=== PATIENT | male | born 1965 | race Caucasian/White ===

== ENCOUNTER → 2016-03-31 | Outpatient (CLI) | payer MEDICARE, OTHER ==
[2016-03-31 09:38] LABS: Blood Urea Nitrogen 21 mg/dL (9-20); Non-African American GFR(MDRD) >60 (>60 ml/min/1.73 sqM)
--- NOTE | 2016-03-31 11:06 | CT ---
EXAMINATION TYPE: CT chest abdomen w con DATE OF EXAM: 03/31/2016 10:25 AM REFERENCE: NONE HISTORY: R10.9 R flank pain HISTORY: Right flank pain REFERENCE: NONE CT DLP: 2955.70 mGy Automated exposure control for dose reduction was used. TECHNIQUE: Helical acquisition through the abdomen and pelvis was obtained following the oral ingesti on of with Oral Contrast and following intravenous administration of 100 ml mL of Omnipaque 300. The data was reformatted in axial, coronal and sagittal projections. FINDINGS: The lungs are clear. There is no significant axillary, mediastinal or hilar adenopathy. There is no pleural or pericardial fluid. The heart is normal in size. Within the abdomen, the liver is prominent measuring 20 cm. There is mild fatty infiltration of the l iver. The spleen and gallbladder are normal. Both adrenal glands are normal. The pancreas is unremarkable. Both kidneys demonstrate function and appear morphologically normal. There is no significant retroperitoneal adenopathy. Large and small bowel loops appear normal. Limited views of the appendix appear normal. There is spondylosis deformans and hypertrophic spondylosis in the dorsal spine. 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 There is facet arthropathy in the lumbar spine. No bony d estructive lesion is seen. IMPRESSION: 1. HEPATOMEGALY AND FATTY INFILTRATION OF THE LIVER. 2. NORMAL CT SCAN OF THE CHEST. 3. NO EVIDENCE OF NEPHROLITHIASIS OR HYDRONEPHROSIS. 4. 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
== END | disposition home or self-care (01) ==
LOC: RADCTMAIN 08:57
PROVIDERS: ATTEND Family Medicine
DX: R16.0 Hepatomegaly, not elsewhere classified (principal)
CPT/HCPCS: 82565; 84520; 71260; 74160; 36415; Q9967 ×2

== ENCOUNTER → 2016-04-24 | Outpatient (CLI) | payer MEDICARE, OTHER ==
[2016-04-24 09:56] LABS: Hemoglobin A1C 7.8 % (4.2-6.1)
[2016-04-24 10:11] LABS: ALT 28 U/L (21-72); AST 24 U/L (17-59); Alkaline Phosphatase 82 U/L (38-126); Anion Gap 9 mmol/L; Blood Urea Nitrogen 17 mg/dL (9-20); Carbon Dioxide 27 mmol/L (22-30); Chloride 102 mmol/L (98-107); Cholesterol 172 mg/dL (<200); Glucose 138 mg/dL (74-99); HDL Cholesterol 53 mg/dL (40-60); Non-African American GFR(MDRD) >60 (>60 ml/min/1.73 sqM); Potassium 4.2 mmol/L (3.5-5.1); Sodium 138 mmol/L (137-145); Total Bilirubin 0.6 mg/dL (0.2-1.3); Total Protein 6.7 g/dL (6.3-8.2); Triglycerides 174 mg/dL (<150)
== END ==
LOC: LABWHC1 08:38
PROVIDERS: ATTEND Internal Medicine Endocrinology, Diabetes & Metabolism
DX: E11.65 Type 2 diabetes mellitus with hyperglycemia (principal)
CPT/HCPCS: 36415; 80053; 80061; 82043; 83036

== ENCOUNTER → 2016-08-02 | Outpatient (CLI) | payer MEDICARE, OTHER ==
--- NOTE | 2016-08-02 08:30 | XR ---
EXAMINATION TYPE: XR Hip Complete RT DATE OF EXAM: 08/02/2016 CLINICAL HISTORY: Injury, pain TECHNIQUE: AP and frogleg views of the right hip are obtained. COMPARISON: None. FINDINGS: There is no acute fracture/dislocation evident in the right hip. The joint space in the r ight hip appears within normal limits. The overlying soft tissue appears unremarkable. IMPRESSION: There is no acute fracture or dislocation in the right hip.
== END | disposition home or self-care (01) ==
LOC: RADXRMAIN 07:57
PROVIDERS: ATTEND Physician Assistant
DX: M25.551 Pain in right hip (principal)
CPT/HCPCS: 73502

== ENCOUNTER → 2016-11-01 | Outpatient (CLI) | payer MEDICARE, OTHER ==
[2016-11-01 12:24] LABS: ALT 38 U/L (21-72); AST 15 U/L (17-59); Alkaline Phosphatase 89 U/L (38-126); Anion Gap 11 mmol/L; Blood Urea Nitrogen 13 mg/dL (9-20); Calcium 9.2 mg/dL (8.4-10.2); Carbon Dioxide 26 mmol/L (22-30); Chloride 103 mmol/L (98-107); Cholesterol 167 mg/dL (<200); Glucose 101 mg/dL (74-99); HDL Cholesterol 51 mg/dL (40-60); Non-African American GFR(MDRD) >60 (>60 ml/min/1.73 sqM); Potassium 4.3 mmol/L (3.5-5.1); Sodium 140 mmol/L (137-145); Total Bilirubin 0.4 mg/dL (0.2-1.3)
[2016-11-01 21:31] LABS: Urine Creatinine 88.3 mg/dL
== END | disposition home or self-care (01) ==
LOC: LABWHC1 11:11
PROVIDERS: ATTEND Internal Medicine Endocrinology, Diabetes & Metabolism
DX: E11.65 Type 2 diabetes mellitus with hyperglycemia (principal)
CPT/HCPCS: 36415; 80053; 80061; 82043; 82570

== ENCOUNTER → 2016-12-05 | Outpatient (CLI) | payer MEDICARE, OTHER ==
[2016-12-05 10:06] LABS: Bilirubin, Delta 0.1 mg/dL (0.0-0.2); Total Bilirubin 0.5 mg/dL (0.2-1.3)
== END | disposition home or self-care (01) ==
LOC: LABWHC1 09:30
DX: K76.0 Fatty (change of) liver, not elsewhere classified (principal)
CPT/HCPCS: 36415; 80076

== ENCOUNTER → 2017-05-16 | Outpatient (CLI) | payer MEDICARE, OTHER ==
--- NOTE | 2017-05-16 16:07 | MR ---
EXAMINATION TYPE: MR lumbar spine wo con DATE OF EXAM: 05/16/2017 COMPARISON: MRI lumbar spine June 17, 2015. HISTORY: LBP, radiates into rt buttock x 3 years; no trauma TECHNIQUE: Multiplanar, multisequence imaging of the lumbar spine is performed without IV contrast. FINDINGS: Sagittal images of the lumbar spine show vertebral body heights and alignment to appear sat isfactory. There is mild disc desiccation L3-L4 and L4-L5 levels with perhaps mild disc space narrowi ng L4-L5 level otherwise the intervertebral discs demonstrate normal heights and hydration. No large posterior disc herniations are present on sagittal images. The conus medullaris remains normal in po sition and signal ending at superior L1 level. No significant spurring is seen. The bone marrow sign al intensity is within normal limits. Axial images are suboptimal as there is motion artifact degradation present. Axial images at the T12- L1, L1-L2, and L2-L3 levels are felt within normal limits. Axial images at L3-L4 level redemonstrate mild facet degenerative changes and ligament flavum hypertr ophy but spinal canal is preserved and bilateral neural foramina are patent. Axial images at L4-L5 level show mild/moderate facet degenerative changes bilaterally. There is centr al disc protrusion seen mildly effacing anterior thecal sac. There is mild bilateral anterior inferio r neural foraminal narrowing noted. Axial images at L5-S1 level show asymmetric moderate to advanced right-sided facet arthropathy simila r to prior. There is some encroachment on right lateral recess redemonstrated. Bilateral neural myron leandro remain patent. Spinal canal is preserved. IMPRESSION: Multilevel fairly mild degenerative changes in lumbar spine redemonstrated as detailed ab ove. Overall no significant interval change from prior exam.
== END | disposition home or self-care (01) ==
LOC: RADMRIMAIN 14:57
PROVIDERS: ATTEND Psychiatry & Neurology Neurology
DX: M47.816 Spondylosis without myelopathy or radiculopathy, lumbar region (principal)
CPT/HCPCS: 72148

== ENCOUNTER → 2017-05-29 | Outpatient (CLI) | payer MEDICARE, OTHER ==
[2017-05-29 10:40] LABS: Albumin 3.8 g/dL (3.5-5.0); Cholesterol 174 mg/dL (<200); Glucose 263 mg/dL (74-99); Total Protein 6.8 g/dL (6.3-8.2); Triglycerides 227 mg/dL (<150)
[2017-05-29 10:41] LABS: ALT 26 U/L (21-72); AST 16 U/L (17-59); Alkaline Phosphatase 100 U/L (38-126); Anion Gap 11 mmol/L; Blood Urea Nitrogen 16 mg/dL (9-20); Calcium 9.1 mg/dL (8.4-10.2); Carbon Dioxide 26 mmol/L (22-30); Chloride 102 mmol/L (98-107); HDL Cholesterol 45 mg/dL (40-60); LDL Cholesterol,Calculated 84 mg/dL (0-99); Potassium 4.7 mmol/L (3.5-5.1); Sodium 139 mmol/L (137-145); Total Bilirubin 0.5 mg/dL (0.2-1.3)
[2017-05-29 18:20] LABS: Hemoglobin A1C 9.4 % (4.0-6.0)
== END | disposition home or self-care (01) ==
LOC: LABWHC1 09:41
PROVIDERS: ATTEND Internal Medicine Endocrinology, Diabetes & Metabolism
DX: E11.65 Type 2 diabetes mellitus with hyperglycemia (principal)
CPT/HCPCS: 36415; 80053; 80061; 82043; 82570; 83036

== ENCOUNTER → 2017-09-21 | Outpatient (CLI) | payer MEDICARE, OTHER ==
--- NOTE | 2017-09-21 13:11 | US ---
EXAMINATION TYPE: US carotid duplex BILAT DATE OF EXAM: 09/21/2017 COMPARISON: NONE CLINICAL HISTORY: Z86.73 Personal history of transient ischemic. EXAM MEASUREMENTS: RIGHT: Peak Systolic Velocity (PSV) cm/sec ----- Right CCA: 104.9 ----- Right ICA: 55.4 ----- Right ECA: 124.8 ICA/CCA ratio: 0.5 RIGHT: End Diastole cm/sec ----- Right CCA: 31.2 ----- Right ICA: 26.0 ----- Right ECA: 19.1 LEFT: Peak Systolic Velocity (PSV) cm/sec ----- Left CCA: 90.4 ----- Left ICA: 58.5 ----- Left ECA: 108.2 ICA/CCA ratio: 0.6 LEFT: End Diastole cm/sec ----- Left CCA: 27.1 ----- Left ICA: 28.8 ----- Left ECA: 18.9 VERTEBRALS (direction of flow): Right Vertebral: Antegrade Left Vertebral: Antegrade Rhythm: Normal Mild plaque, no significant velocity elevations Intimal thickening is present bilaterally. IMPRESSION: 1. Intimal thickening present bilaterally with some scattered small atheromatous plaques. No signific ant flow-limiting stenosis is present. Criteria for Assigning % of Stenosis / Diameter reduction (Estimation based on the indirect measurements of the internal carotid artery velocities (ICA PSV). 1. Normal (no stenosis)=ICA PSV < 125 cm/s: ratio < 2.0: ICA EDV<40 cm/s. 2. Less than 50% stenosis=ICA PSV < 125 cm/s: ratio < 2.0: ICA EDV<40 cm/s. 3. 50 to 69% stenosis=ICA PSV of 125 to 230 cm/s: ration 2.0 ? 4.0: ICA EDV 40-100 cm/s. 4. Greater than 70% stenosis to near occlusion= ICA PSV > 230 cm/s: ratio > 4.0: ICA EDV > 100 cm/s. 5. Near occlusion= ICA PSV velocities may be low or undetectable: variable ratio and ICA EDV. 6. Total occlusion=unable to detect flow.
== END | disposition home or self-care (01) ==
LOC: RADUSWWP 08:49
PROVIDERS: ATTEND Psychiatry & Neurology Neurology
DX: I65.23 Occlusion and stenosis of bilateral carotid arteries (principal); Z86.73 Personal history of transient ischemic attack (TIA), and cerebral infarction without residual deficits
CPT/HCPCS: 93880

== ENCOUNTER → 2017-10-01 | Outpatient (CLI) | payer MEDICARE, OTHER ==
--- NOTE | 2017-10-01 11:28 | MR ---
EXAMINATION TYPE: MR brain wo con DATE OF EXAM: 10/01/2017 COMPARISON: Prior MRI brain October 07, 2013. HISTORY: Memory loss, Rt side weakness, hx of stroke. TIA per order. TECHNIQUE: Multiplanar, multisequence imaging of the brain and brainstem is performed without IV cont rast. FINDINGS: Diffusion weighted images demonstrate no evidence of a recent infarct or other diffusion abnormality. There is no worrisome extra-axial fluid collection. The ventricular system and cisternal spaces are normal in size and appearance. The brain volume is age appropriate. Some scattered foci of T2 hyperi ntensity most prominent in the periventricular white matter redemonstrated. I estimates roughly 15-20 scattered lesions with progression from 2014 MRI, largest is 6 mm left parietal occipital deep white matter lesion axial image 21 more prominent in size and definition from prior MRI. Midline structures demonstrate normal morphology. The craniocervical junction appears within normal limits. Normal vascular flow voids are present. The visualized sinuses are clear and the globes are i ntact. IMPRESSION: 1. No evidence of a recent infarct. 2. Mild to moderate nonspecific white matter changes most likely on basis of product of chronic small vessel ischemic change in patient of this age. Progression in findings from 2014 MRI is noted.
== END | disposition home or self-care (01) ==
LOC: RADMRIMAIN 10:28
PROVIDERS: ATTEND Psychiatry & Neurology Neurology
DX: R90.82 White matter disease, unspecified (principal); Z86.73 Personal history of transient ischemic attack (TIA), and cerebral infarction without residual deficits; Z88.5 Allergy status to narcotic agent
CPT/HCPCS: 70551

== ENCOUNTER → 2018-10-28 | Outpatient (CLI) | payer MEDICARE, OTHER ==
[2018-10-28 16:12] LABS: Albumin 4.3 g/dL (3.80-4.90); Albumin/Globulin Ratio 2.15 (1.60-3.17); Anion Gap 8.7 mmol/L (4.00-12.00); BUN/Creat Ratio 18.57 Ratio (12.00-20.00); Calcium 9.4 mg/dL (8.7-10.3); Carbon Dioxide 25.3 mmol/L (21.6-31.8); Chol/HDL Ratio 3.62; LDL Cholesterol,Calculated 91.4 mg/dL (0.0-131.0); Potassium 4.7 mmol/L (3.5-5.5); Total Bilirubin 0.4 mg/dL (0.2-1.2); Total Protein 6.3 g/dL (6.2-8.2); VLDL Calculation 31.6 mg/dL (5.00-40.00)
[2018-10-28 17:50] LABS: Hemoglobin A1C 10.4 % (4.0-6.0)
== END | disposition home or self-care (01) ==
LOC: LABWHC1 09:25
PROVIDERS: ATTEND Internal Medicine Endocrinology, Diabetes & Metabolism
DX: E11.65 Type 2 diabetes mellitus with hyperglycemia (principal)
CPT/HCPCS: 36415; 80053; 80061; 82043; 82570; 83036; 84443

== ENCOUNTER 2019-12-29 23:04 | Inpatient (IN) | payer MEDICARE, OTHER ==
[2019-12-29] MEDS ORDERED: ACETAMINOPHEN TAB 500 MG TAB PO STA (23:15)
[2019-12-29] MEDS ORDERED: RX INFO: IV CONTRAST WAS GIVEN 1 EACH MISC MISCELLANE PRN (23:23)
[2019-12-29 23:36] LABS: Basophils # (A) 0.1 k/uL (0-0.2); Basophils % (A) 1 %; Eosinophils # (A) 0.2 k/uL (0-0.7); Eosinophils % (A) 1 %; HCT 42.4 % (39.0-53.0); HGB 14.3 gm/dL (13.0-17.5); Lymphocytes # (A) 1.5 k/uL (1.0-4.8); Lymphocytes % (A) 7 %; MCH 29.9 pg (25.0-35.0); MCHC 33.7 g/dL (31.0-37.0); MCV 88.8 fL (80.0-100.0); Mean Platelet Volume 8.8; Monocytes % (A) 5 %; Neutrophils # (A) 19.1 k/uL (1.3-7.7); Neutrophils % (A) 86 %; Platelet Count 296 k/uL (150-450); RBC 4.78 m/uL (4.30-5.90); RDW 12.5 % (11.5-15.5); WBC 22.2 k/uL (3.8-10.6)
[2019-12-29] MEDS: SODIUM CHLORIDE 0.9% 500 ML 500 ML IV SCH (23:38)
[2019-12-29 23:49] LABS: ALT 24 U/L (4-49); AST 32 U/L (17-59); African American GFR (CKD) >90 (>60 ml/min/1.73 sqM); Albumin 3.5 g/dL (3.5-5.0); Alkaline Phosphatase 157 U/L (38-126); Anion Gap 11 mmol/L; Blood Urea Nitrogen 10 mg/dL (9-20); Calcium 8.6 mg/dL (8.4-10.2); Carbon Dioxide 23 mmol/L (22-30); Chloride 93 mmol/L (98-107); Creatine Kinase 307 U/L (55-170); Glucose 312 mg/dL (74-99); LDH 712 U/L (313-618); Magnesium 1.8 mg/dL (1.6-2.3); Non-African American GFR(CKD) >90 (>60 ml/min/1.73 sqM); Potassium 4.2 mmol/L (3.5-5.1); Sodium 127 mmol/L (137-145); Total Bilirubin 0.8 mg/dL (0.2-1.3); Total Protein 6.6 g/dL (6.3-8.2)
[2019-12-29 23:57] LABS: INR 0.9 (<1.2); Partial Thromboplastin Time 26.1 sec (22.0-30.0); Prothrombin Time 9.6 sec (9.0-12.0)
[2019-12-30] MEDS: SODIUM CHLORIDE 0.9% 500 ML 500 ML IV SCH ×2 (00:01)
[2019-12-30] MEDS ORDERED: VANCOMYCIN IV PER PHARMACY 1 EACH MISC MISCELLANE PRN (00:08)
--- NOTE | 2019-12-30 00:08 | ED ---
General Adult HPI - General Chief complaint: Allergic Reaction Stated complaint: vomiting,fever Time Seen by Provider: 12/29/19 23:10 Source: patient, family Mode of arrival: ambulatory - History of Present Illness Initial comments: Robe is a 54yo M with extensive PMH listed below, patient since the ER today via private vehicle for evaluation of multiple complaints. Patient reports he has not been feeling good for nearly a week he states he's been wearing his BiPAP continuously for 5 days due to shortness of breath. He has not been eating or drinking well he's had some nausea. He states that on Sunday he noticed a small bump on his right upper back that he thought was a bug bite, on Sunday of broke open and has been draining copious purulent fluid since that time. the patient reports he's had fevers and body aches and feels these been progressively worsening for the past couple of days and tonight became concerned because he is not getting any better so he came to the ER for further evaluation. - Related Data Home Medications Medication Instructions Recorded Confirmed Enalapril [Vasotec] 10 mg PO BID 10/05/13 10/20/15 Multivitamins, Thera [Multivitamin 1 tab PO DAILY 10/05/13 10/20/15 (formulary)] Gabapentin [Neurontin] 300 mg PO TID 02/01/15 10/20/15 Insulin Glargine [Lantus] 50 unit SQ HS 02/01/15 10/20/15 Nitroglycerin Sl Tabs [Nitrostat] 0.4 mg SUBLINGUAL Q5M PRN 02/01/15 10/20/15 Simvastatin [Zocor] 20 mg PO HS 02/01/15 10/20/15 Artificial Tears-Hypromellose 1 - 2 drops BOTH EYES DAILY PRN 10/20/15 10/20/15 [Artificial Tear Drops] Gabapentin 600 mg PO TID 10/20/15 10/20/15 INSULIN ASPART (NovoLOG) [NovoLOG] 10 units SQ AC-TID 10/20/15 10/20/15 metFORMIN HCL 1,000 mg PO BID 10/20/15 10/20/15 Previous Rx's Medication Instructions Recorded Clopidogrel Bisulfate [Plavix] 75 mg PO DAILY #30 tab 05/25/14 Omeprazole [PriLOSEC] 40 mg PO AC-BRKFST #14 capsule. 10/21/15 PARoxetine [Paxil] 10 mg PO DAILY #30 tab 10/21/15 Allergies Allergy/AdvReac Type Severity Reaction Status Date / Time codeine Allergy Severe Anaphylaxis Verified 12/29/19 23:10 meloxicam Allergy Swelling Verified 12/29/19 23:10 Review of Systems ROS Statement: Those systems with pertinent positive or pertinent negative responses have been documented in the HPI. ROS Other: All systems not noted in ROS Statement are negative. 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 Past Anesthesia/Blood Transfusion Reactions: No Reported Reaction Additional Past Anesthesia/Blood Transfusion Reaction / Comment(s): CLAUTERPHOBIA Past Psychological History: Depression Past Alcohol Use History: Rare Past Drug Use History: None Reported - Past Family History Mother Family Medical History: Diabetes Mellitus Father Family Medical History: Cancer General Exam - General Exam Comments Initial Comments: Physical Exam GENERAL: Toxic appearance HENT: Normocephalic, Atraumatic. EYES: PERRL, EOMI PULMONARY: Tachypnea CARDIOVASCULAR: Tachycardic ABDOMEN: Soft and nontender with normal bowel sounds. SKIN: Large abscess on right upper back, draining purulent fluid, significant surrounding cellulitis : Deferred NEUROLOGIC: Patient is alert and oriented x3. Moving all extremities spontaneously MUSCULOSKELETAL: LLE in brace PSYCHIATRIC: Normal psychiatric evaluation. Course Vital Signs 12/29/19 23:06 Temperature 102.7 F H Pulse Rate 140 H Respiratory 18 Rate Blood Pressure 167/85 O2 Sat by Pulse 95 Oximetry EKG Findings - EKG Comments: EKG Findings:: EKG obtained due to tachycardia, EKG obtained at 2316 rate is 136 rhythm is a narrow complex regular tachycardia consistent sinus tachycardia, ME 138, QRS 86 QTC 439 elevations or depressions no evidence of ischemia or infarction. Medical Decision Making - Medical Decision Making Patient was seen and evaluated history is obtained from the patient is an upon arrival patient so to be tachypneic tachycardic febrile Septic workup was initiated, patient reported using his BiPAP continuously for 5 days therefore COVID workup was also initiated IVF, Vancomycin and Rocephin ordered Labs consistent with acute infection - profound leukocytosis with neutrophilia CT scan confrims cellulitis with myocitis no evidence of abscess or free air Patient resting comfortably, texting Patient will be admitted for Absent secondary to cellulitis with a consult to i nfectious disease - Lab Data Result diagrams: 12/29/19 23:22 12/29/19 23:22 Lab Results 12/29/19 12/29/19 12/29/19 Range/Units 23:22 23:22 23:22 WBC 22.2 H (3.8-10.6) k/uL RBC 4.78 (4.30-5.90) m/uL Hgb 14.3 (13.0-17.5) gm/dL Hct 42.4 (39.0-53.0) % MCV 88.8 (80.0-100.0) fL MCH 29.9 (25.0-35.0) pg MCHC 33.7 (31.0-37.0) g/dL RDW 12.5 (11.5-15.5) % Plt Count 296 (150-450) k/uL Neutrophils % 86 % Lymphocytes % 7 % Monocytes % 5 % Eosinophils % 1 % Basophils % 1 % Neutrophils # 19.1 H (1.3-7.7) k/uL Lymphocytes # 1.5 (1.0-4.8) k/uL Monocytes # 1.0 (0-1.0) k/uL Eosinophils # 0.2 (0-0.7) k/uL Basophils # 0.1 (0-0.2) k/uL PT Cancelled INR Cancelled APTT Cancelled D-Dimer 1.08 H (<0.60) mg/L FEU Sodium (137-145) mmol/L Potassium (3.5-5.1) mmol/L Chloride (98-107) mmol/L Carbon Dioxide (22-30) mmol/L Anion Gap mmol/L BUN (9-20) mg/dL Creatinine (0.66-1.25) mg/dL Est GFR (CKD-EPI)AfAm (>60 ml/min/1.73 sqM) Est GFR (CKD-EPI)NonAf (>60 ml/min/1.73 sqM) Glucose (74-99) mg/dL Plasma Lactic Acid Wes (0.7-2.0) mmol/L Calcium (8.4-10.2) mg/dL Magnesium (1.6-2.3) mg/dL Total Bilirubin (0.2-1.3) mg/dL AST (17-59) U/L ALT (4-49) U/L Alkaline Phosphatase (38-126) U/L Lactate Dehydrogenase (313-618) U/L Creatine Kinase (55-170) U/L C-Reactive Protein (<10.0) mg/L Total Protein (6.3-8.2) g/dL Albumin (3.5-5.0) g/dL Urine Color Yellow Urine Appearance Clear (Clear) Urine pH 5.5 (5.0-8.0) Ur Specific [place] 1.020 (1.001-1.035) Urine Protein 1+ H (Negative) Urine Glucose (UA) 4+ H (Negative) Urine Ketones 3+ H (Negative) Urine Blood Small H (Negative) Urine Nitrite Negative (Negative) Urine Bilirubin Negative (Negative) Urine Urobilinogen <2.0 (<2.0) mg/dL Ur Leukocyte Esterase Negative (Negative) Urine RBC 1 (0-5) /hpf Urine WBC 1 (0-5) /hpf Ur Squamous Epith Cells <1 (0-4) /hpf Urine Mucus Rare H (None) /hpf Coronavirus (PCR) (Not Detectd) 12/29/19 12/29/19 12/29/19 Range/Units 23:22 23:22 23:22 WBC (3.8-10.6) k/uL RBC (4.30-5.90) m/uL Hgb (13.0-17.5) gm/dL Hct (39.0-53.0) % MCV (80.0-100.0) fL MCH (25.0-35.0) pg MCHC (31.0-37.0) g/dL RDW (11.5-15.5) % Plt Count (150-450) k/uL Neutrophils % % Lymphocytes % % Monocytes % % Eosinophils % % Basophils % % Neutrophils # (1.3-7.7) k/uL Lymphocytes # (1.0-4.8) k/uL Monocytes # (0-1.0) k/uL Eosinophils # (0-0.7) k/uL Basophils # (0-0.2) k/uL PT 9.6 INR 0.9 APTT 26.1 D-Dimer (<0.60) mg/L FEU Sodium 127 L (137-145) mmol/L Potassium 4.2 (3.5-5.1) mmol/L Chloride 93 L (98-107) mmol/L Carbon Dioxide 23 (22-30) mmol/L Anion Gap 11 mmol/L BUN 10 (9-20) mg/dL Creatinine 0.78 (0.66-1.25) mg/dL Est GFR (CKD-EPI)AfAm >90 (>60 ml/min/1.73 sqM) Est GFR (CKD-EPI)NonAf >90 (>60 ml/min/1.73 sqM) Glucose 312 H (74-99) mg/dL Plasma Lactic Acid Wes 1.4 (0.7-2.0) mmol/L Calcium 8.6 (8.4-10.2) mg/dL Magnesium 1.8 (1.6-2.3) mg/dL Total Bilirubin 0.8 (0.2-1.3) mg/dL AST 32 (17-59) U/L ALT 24 (4-49) U/L Alkaline Phosphatase 157 H (38-126) U/L Lactate Dehydrogenase 712 H (313-618) U/L Creatine Kinase 307 H (55-170) U/L C-Reactive Protein 347.8 H (<10.0) mg/L Total Protein 6.6 (6.3-8.2) g/dL Albumin 3.5 (3.5-5.0) g/dL Urine Color Urine Appearance (Clear) Urine pH (5.0-8.0) Ur Specific [place] (1.001-1.035) Urine Protein (Negative) Urine Glucose (UA) (Negative) Urine Ketones (Negative) Urine Blood (Negative) Urine Nitrite (Negative) Urine Bilirubin (Negative) Urine Urobilinogen (<2.0) mg/dL Ur Leukocyte Esterase (Negative) Urine RBC (0-5) /hpf Urine WBC (0-5) /hpf Ur Squamous Epith Cells (0-4) /hpf Urine Mucus (None) /hpf Coronavirus (PCR) (Not Detectd) 12/29/19 Range/Units 23:22 WBC (3.8-10.6) k/uL RBC (4.30-5.90) m/uL Hgb (13.0-17.5) gm/dL Hct (39.0-53.0) % MCV (80.0-100.0) fL MCH (25.0-35.0) pg MCHC (31.0-37.0) g/dL RDW (11.5-15.5) % Plt Count (150-450) k/uL Neutrophils % % Lymphocytes % % Monocytes % % Eosinophils % % Basophils % % Neutrophils # (1.3-7.7) k/uL Lymphocytes # (1.0-4.8) k/uL Monocytes # (0-1.0) k/uL Eosinophils # (0-0.7) k/uL Basophils # (0-0.2) k/uL PT INR APTT D-Dimer (<0.60) mg/L FEU Sodium (137-145) mmol/L Potassium (3.5-5.1) mmol/L Chloride (98-107) mmol/L Carbon Dioxide (22-30) mmol/L Anion Gap mmol/L BUN (9-20) mg/dL Creatinine (0.66-1.25) mg/dL Est GFR (CKD-EPI)AfAm (>60 ml/min/1.73 sqM) Est GFR (CKD-EPI)NonAf (>60 ml/min/1.73 sqM) Glucose (74-99) mg/dL Plasma Lactic Acid Wes (0.7-2.0) mmol/L Calcium (8.4-10.2) mg/dL Magnesium (1.6-2.3) mg/dL Total Bilirubin (0.2-1.3) mg/dL AST (17-59) U/L ALT (4-49) U/L Alkaline Phosphatase (38-126) U/L Lactate Dehydrogenase (313-618) U/L Creatine Kinase (55-170) U/L C-Reactive Protein (<10.0) mg/L Total Protein (6.3-8.2) g/dL Albumin (3.5-5.0) g/dL Urine Color Urine Appearance (Clear) Urine pH (5.0-8.0) Ur Specific [place] (1.001-1.035) Urine Protein (Negative) Urine Glucose (UA) (Negative) Urine Ketones (Negative) Urine Blood (Negative) Urine Nitrite (Negative) Urine Bilirubin (Negative) Urine Urobilinogen (<2.0) mg/dL Ur Leukocyte Esterase (Negative) Urine RBC (0-5) /hpf Urine WBC (0-5) /hpf Ur Squamous Epith Cells (0-4) /hpf Urine Mucus (None) /hpf Coronavirus (PCR) Not Detected (Not Detectd) Critical Care Time Critical Care Time: Yes Total Critical Care Time: 30 Critical Care Time: Critical Care Time 30 Critical care time was exclusive of separately billable procedures and treating other patients and teaching time. Critical care was necessary to treat or prevent imminent or life-threatening deterioration. Given the critical condition in which the patient arrived, the patient was immediately assessed by myself and the nurse, and cardiac monitoring initiated due to the potential for rapid decompensation of the patient's clinical condition. During the course of the patients stay, I spent a considerable amount of time at the bedside performing serial re-evaluations of the patient's hemodynamic and clinical status because of the recognized potential threat to life or limb in this condition. I then had a chance to review not only all of the available current laboratory and radiographic studies obtained today, but I also reviewed old records available to me at the time. Additionally, any ancillary information available including claim technician records were reviewed. Sequential vital signs were obtained. Disposition Clinical Impression: Sepsis, Cellulitis, Myositis, Diabetes mellitus Disposition: [facility]MITT[facility] Condition: Serious Referrals: Rossy He MD [Primary Care Provider] - 1-2 days
[2019-12-30] MEDS ORDERED: cefTRIAXone IN SWFI 1,000 MG/10 ML SYRINGE IVP ONE (00:15)
[2019-12-30 00:43] LABS: Appearance,Urine Clear (Clear); Bilirubin,Urine Negative (Negative); Blood,Urine Small (Negative); Color,Urine Yellow; Glucose,Urine (UA) 4+ (Negative); Leukocyte Esterase,Urine Negative (Negative); Mucus,Urine Rare /hpf; Nitrite,Urine Negative (Negative); PH, Urine 5.5 (5.0-8.0); Protein,Urine 1+ (Negative); RBC,Urine 1 /hpf (0-5); Squamous Epithelial Cell,Urine <1 /hpf (0-4); Urobilinogen,Urine <2.0 mg/dL (<2.0); WBC,Urine 1 /hpf (0-5)
[2019-12-30 00:53] LABS: C Reactive Protein 347.8 mg/L (<10.0)
[2019-12-30 00:56] LABS: Ketones,Urine 3+ (Negative)
[2019-12-30] MEDS ORDERED: VANCOMYCIN 2,000 MG in SODIUM CHLORIDE 0.9% 500 ML 500 ML IVPB ONE (01:00)
--- NOTE | 2019-12-30 01:32 | CT ---
EXAM: CT Chest With Intravenous Contrast CLINICAL HISTORY: possible COVID, abscess on back TECHNIQUE: Axial computed tomography images of the chest with intravenous contrast. CTDI is 19.04 mGy and DLP is 768.9 mGy-cm. This CT exam was performed using one or more of the following dose reduction techniques: automated exposure control, adjustment of the mA and/or kV according to patient size, and/or use of iterative reconstruction technique. Coronal and sagittal reformatted images were created and reviewed. COMPARISON: CT chest and abdomen from 03/31/16 FINDINGS: Lungs: Unremarkable. No mass. No consolidation. Pleural space: Unremarkable. No pneumothorax. No significant effusion. Heart: Unremarkable. No cardiomegaly. No significant pericardial effusion. Bones/joints: Moderate degenerative changes. Soft tissues: Moderate amount of subcutaneous soft tissue edema right neck and upper back. Right latissimus dorsi appears edematous and slightly enlarged. Vasculature: Unremarkable. No thoracic aortic aneurysm. Lymph nodes: Unremarkable. No enlarged lymph nodes. Liver: Suspect fatty liver. IMPRESSION: Cellulitis of right neck and upper back with associated underlying myositis. No fluid collection.
[2019-12-30] MEDS ORDERED: NALOXONE 0.4 MG/ML 1 ML VIAL IV PRN (02:08)
[2019-12-30] MEDS ORDERED: ONDANSETRON 4 MG/2 ML VIAL IVP PRN (02:08)
[2019-12-30] MEDS: SODIUM CHLORIDE 0.9% 1,000 ML IV SCH ×3 (02:57→18:06)
[2019-12-30] MEDS ORDERED: guaiFENesin SYRUP 100MG/5ML 200 MG/10 ML CUP PO PRN (05:37)
[2019-12-30 08:16] LABS: Glucose,Whole Blood 252 mg/dL (75-99)
[2019-12-30] MEDS: INSULIN ASPART (NovoLOG) 100 UNIT/ML VIAL SQ SCH ×6 (08:27→22:22)
[2019-12-30 09:45] LABS: Ferritin 275.8 ng/mL (22.0-322.0)
[2019-12-30] MEDS ORDERED: NITROGLYCERIN SL TABS 0.4 MG TAB SUBLINGUAL PRN (09:51)
[2019-12-30 12:13] LABS: Glucose,Whole Blood 245 mg/dL (75-99)
[2019-12-30] MEDS ORDERED: VANCOMYCIN 2,000 MG in SODIUM CHLORIDE 0.9% 500 ML 500 ML IVPB SCH (13:00)
--- NOTE | 2019-12-30 13:09 | P.HPIM ---
History of Present Illness 54-year-old male came in because of significant redness in the back. Patient is found as the lightest in the back patient does have induration. Patient doesn't have any history of MRSA in the past patient had cellulitis in the past. Patient had a small bump in the upper back thought to be a bit bite, patient doesn't have any significant drainage when I evaluated the patient. Patient had fevers and some body aches, patient does have fever. Patient also bit hyponatremic and hyperglycemic uncontrolled blood sugars. Patient has elevated d-dimer because of sepsis Review of Systems REVIEW OF SYSTEMS: CONSTITUTIONAL: No fever, no malaise, no fatigue. HEENT: No recent visual problems or hearing problems. Denied any sore throat. CARDIOVASCULAR: No chest pain, orthopnea, PND, no palpitations, no syncope. PULMONARY: No shortness of breath, no cough, no hemoptysis. GASTROINTESTINAL: No diarrhea, no nausea, no vomiting, no abdominal pain. NEUROLOGICAL: No headaches, no weakness, no numbness. HEMATOLOGICAL: Denies any bleeding or petechiae. GENITOURINARY: Denies any burning micturition, frequency, or urgency. MUSCULOSKELETAL/RHEUMATOLOGICAL: Denies any joint pain, swelling, or any muscle pain. ENDOCRINE: Denies any polyuria or polydipsia. The rest of the 14-point review of systems is negative. 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 Past Anesthesia/Blood Transfusion Reactions: No Reported Reaction Additional Past Anesthesia/Blood Transfusion Reaction / Comment(s): CLAUTERPHOBIA Past Psychological History: Depression Past Alcohol Use History: Rare Past Drug Use History: None Reported - Past Family History Mother Family Medical History: Diabetes Mellitus Father Family Medical History: Cancer Medications and Allergies Home Medications Medication Instructions Recorded Confirmed Type Enalapril [Vasotec] 10 mg PO BID 10/05/13 12/30/19 History Multivitamins, Thera [Multivitamin 1 tab PO DAILY 10/05/13 12/30/19 History (formulary)] Clopidogrel Bisulfate [Plavix] 75 mg PO DAILY #30 tab 05/25/14 12/30/19 Rx Insulin Glargine [Lantus] 75 unit SQ HS 02/01/15 12/30/19 History Nitroglycerin Sl Tabs [Nitrostat] 0.4 mg SUBLINGUAL Q5M PRN 02/01/15 12/30/19 History Gabapentin 600 mg PO TID 10/20/15 12/30/19 History INSULIN ASPART (NovoLOG) [NovoLOG] 45 units SQ AC-TID 10/20/15 12/30/19 History metFORMIN HCL 1,000 mg PO BID 10/20/15 12/30/19 History Exenatide Microspheres [Bydureon 2 mg SQ MO 12/30/19 12/30/19 History Pen] Simvastatin [Zocor] 40 mg PO HS 12/30/19 12/30/19 History Allergies Allergy/AdvReac Type Severity Reaction Status Date / Time codeine Allergy Severe Anaphylaxis Verified 12/30/19 08:56 meloxicam Allergy Swelling Verified 12/30/19 08:56 Physical Exam Vitals: Vital Signs Temp Pulse Resp BP Pulse Ox 12/30/19 05:31 98.2 F 130 H 20 152/89 98 12/30/19 02:57 99.3 F 122 H 20 156/93 98 12/29/19 23:06 102.7 F H 140 H 18 167/85 95 Intake and Output 12/29/19 12/30/19 12/30/19 22:59 06:59 14:59 Other: Weight 128.367 kg PHYSICAL EXAMINATION: GENERAL: The patient is alert and oriented x3, not in any acute distress. Well d eveloped, well nourished. HEENT: Pupils are round and equally reacting to light. EOMI. No scleral icterus. No conjunctival pallor. Normocephalic, atraumatic. No pharyngeal erythema. No thyromegaly. CARDIOVASCULAR: S1 and S2 present. No murmurs, rubs, or gallops. PULMONARY: Chest is clear to auscultation, no wheezing or crackles. ABDOMEN: Soft, nontender, nondistended, normoactive bowel sounds. No palpable organomegaly. MUSCULOSKELETAL: No joint swelling or deformity. EXTREMITIES: No cyanosis, clubbing, or pedal edema. NEUROLOGICAL: Gross neurological examination did not reveal any focal deficits. SKIN: Patient has extensive cellulitis with induration on the back upper back just below the neck area predominantly in the right side extending beyond the midline with local is of temperature. Results CBC & Chem 7: 12/29/19 23:22 12/29/19 23:22 Labs: Abnormal Lab Results - Last 24 Hours (Table) 12/29/19 12/29/19 12/29/19 Range/Units 23:22 23:22 23:22 WBC 22.2 H (3.8-10.6) k/uL Neutrophils # 19.1 H (1.3-7.7) k/uL D-Dimer 1.08 H (<0.60) mg/L FEU Sodium (137-145) mmol/L Chloride (98-107) mmol/L Glucose (74-99) mg/dL POC Glucose (mg/dL) (75-99) mg/dL Alkaline Phosphatase (38-126) U/L Lactate Dehydrogenase (313-618) U/L Creatine Kinase (55-170) U/L C-Reactive Protein (<10.0) mg/L Procalcitonin (0.02-0.09) ng/mL Urine Protein 1+ H (Negative) Urine Glucose (UA) 4+ H (Negative) Urine Ketones 3+ H (Negative) Urine Blood Small H (Negative) Urine Mucus Rare H (None) /hpf 12/29/19 12/29/19 12/30/19 Range/Units 23:22 23:22 08:14 WBC (3.8-10.6) k/uL Neutrophils # (1.3-7.7) k/uL D-Dimer (<0.60) mg/L FEU Sodium 127 L (137-145) mmol/L Chloride 93 L (98-107) mmol/L Glucose 312 H (74-99) mg/dL POC Glucose (mg/dL) 252 H (75-99) mg/dL Alkaline Phosphatase 157 H (38-126) U/L Lactate Dehydrogenase 712 H (313-618) U/L Creatine Kinase 307 H (55-170) U/L C-Reactive Protein 347.8 H (<10.0) mg/L Procalcitonin 0.39 H (0.02-0.09) ng/mL Urine Protein (Negative) Urine Glucose (UA) (Negative) Urine Ketones (Negative) Urine Blood (Negative) Urine Mucus (None) /hpf 12/30/19 Range/Units 12:08 WBC (3.8-10.6) k/uL Neutrophils # (1.3-7.7) k/uL D-Dimer (<0.60) mg/L FEU Sodium (137-145) mmol/L Chloride (98-107) mmol/L Glucose (74-99) mg/dL POC Glucose (mg/dL) 245 H (75-99) mg/dL Alkaline Phosphatase (38-126) U/L Lactate Dehydrogenase (313-618) U/L Creatine Kinase (55-170) U/L C-Reactive Protein (<10.0) mg/L Procalcitonin (0.02-0.09) ng/mL Urine Protein (Negative) Urine Glucose (UA) (Negative) Urine Ketones (Negative) Urine Blood (Negative) Urine Mucus (None) /hpf Assessment and Plan Plan: -Sepsis and cellulitis with induration and possible early abscess of the right upper back. As there is no MRSA history patient will be started on ceftezole income infectious disease will be consulted since there is an induration and possible early abscess just surgery will be consulted as well. -Tachycardia secondary to sepsis -Hyponatremia: Pseudohyponatremia along with hypovolemic hyponatremia continue with IV fluids expected improved with IV fluids -Type 2 diabetes mellitus uncontrolled elevated blood sugars will obtain hemoglobin A1c in the patient's long-acting insulin will be increased from 70 units to 90 units and patient will continue done the same home dose of pre-meal insulin that is 45 units along with sliding scale. -Hypertension: Patient is bit hypotensive because of junk and on the dose of ARISTIDES inhibitor his blood pressure started going up now. -Sleep apnea uses CPAP machine at home. -DVT prophylaxis with Lovenox.
[2019-12-30 16:16] LABS: Hemoglobin A1C 10.8 % (4.0-6.0)
[2019-12-30] MEDS: ceFAZolin 3 GM in SODIUM CHLORIDE 0.9% 100 ML IVPB SCH ×2 (17:00→22:51)
[2019-12-30] MEDS: CLOPIDOGREL 75 MG TAB PO SCH (17:02)
[2019-12-30] MEDS: GABAPENTIN 300 MG CAP PO SCH ×2 (17:02→22:21)
[2019-12-30] MEDS: MULTIVITAMINS, THERA 1 EACH TAB PO SCH (17:02)
[2019-12-30] MEDS: lisinopriL 20 MG TAB PO SCH (17:02)
[2019-12-30 17:17] LABS: Glucose,Whole Blood 359 mg/dL (75-99)
[2019-12-30] MEDS: CLINDAMYCIN 900 MG in DEXTROSE 5% IN WATER 50 ML IVPB SCH ×4 (18:05→22:51)
[2019-12-30] MEDS: ACETAMINOPHEN TAB 325 MG TAB PO PRN (20:09)
[2019-12-30 22:15] LABS: Glucose,Whole Blood 84 mg/dL (75-99)
[2019-12-30] MEDS: ATORVASTATIN 20 MG TAB PO SCH (22:21)
[2019-12-30] MEDS: FAMOTIDINE 20 MG TAB PO SCH (22:21)
[2019-12-30] MEDS: INSULIN DETEMIR (LEVEMIR) 100 UNIT/ML SYR SQ SCH (22:22)
[2019-12-31] MEDS: SODIUM CHLORIDE 0.9% 1,000 ML IV SCH ×4 (02:18→17:49)
[2019-12-31] MEDS: ACETAMINOPHEN TAB 325 MG TAB PO PRN ×3 (02:18→17:22)
[2019-12-31 07:26] LABS: Glucose,Whole Blood 235 mg/dL (75-99)
[2019-12-31] MEDS: MULTIVITAMINS, THERA 1 EACH TAB PO SCH (08:16)
[2019-12-31] MEDS: INSULIN ASPART (NovoLOG) 100 UNIT/ML VIAL SQ SCH ×7 (08:16→21:39)
[2019-12-31] MEDS: lisinopriL 20 MG TAB PO SCH (08:16)
[2019-12-31] MEDS: CLOPIDOGREL 75 MG TAB PO SCH (08:16)
[2019-12-31] MEDS: FAMOTIDINE 20 MG TAB PO SCH ×2 (08:16→21:37)
[2019-12-31] MEDS: GABAPENTIN 300 MG CAP PO SCH ×3 (08:16→21:37)
[2019-12-31] MEDS: CLINDAMYCIN 900 MG in DEXTROSE 5% IN WATER 50 ML IVPB SCH ×6 (08:31→23:32)
[2019-12-31] MEDS: ceFAZolin 3 GM in SODIUM CHLORIDE 0.9% 100 ML IVPB SCH ×2 (08:31→15:51)
[2019-12-31] MEDS ORDERED: ENOXAPARIN 40 MG/0.4 ML SYRINGE SQ SCH (09:00)
--- NOTE | 2019-12-31 09:25 | CONS ---
CONSULTATION DATE OF SERVICE: 12/30/2019 REASON FOR CONSULTATION: Upper back abscess, cellulitis. HISTORY OF PRESENT ILLNESS: The patient is a 54-year-old male presenting to the ER at [facility] last night for evaluation of pain, swelling, redness to the upper back area that apparently started over the weekend. Patient denies having any history of any trauma or scratching that area. He notice the area of swelling and redness to the upper back that has progressively got worse over the next 2 to 3 days. Patient is complaining of pain to the upper back area, more of a throbbing to sharp intensity was almost 7 to 8/10 in radiation, some improvement with the pain medication. The patient did have some chills as well. With these symptoms, the patient was evaluated by the ER physician on arrival to the ER. Patient did have a fever of 102.7 degrees Fahrenheit. The patient was tachycardic and did have white count of 22.2. The patient did have CT of the chest that did show the back area of cellulitis, but no evidence of any drainable abscess. The patient did have a CRP of 347: Kwon PCR was negative. Patient did have blood cultures currently pending. He was started on cefazolin and admitted to the hospital. Infectious Disease was consulted for further management of antibiotic therapy. REVIEW OF SYSTEMS: Positive points have been mentioned in HPI. Rest of the systems are negative. PAST MEDICAL HISTORY: CVA, diabetes mellitus, hypertension, hyperlipidemia, sleep apnea, diverticulitis, neuropathy. PAST SURGICAL HISTORY: Right great toe and left shoulder surgery, colonoscopy, and cardiac cath. SOCIAL HISTORY: The patient denies smoking. Rarely drinks. No drug use. FAMILY HISTORY: Father history of cancer. Mother history of diabetes mellitus. ALLERGIES: To MELOXICAM and CODEINE. MEDICATIONS: Include the patient is currently on cefazolin 2 g q.8 hours. He is on Lipitor, Plavix, Lovenox, Pepcid, Neurontin, NovoLog, Levemir, Zestril, . PHYSICAL EXAMINATION: Blood pressure is 100/50 with a pulse of 102, temperature 98.1, T-max is 102. He is 97% on 2 L nasal cannula. General description is a middle-aged male up in the bed in no distress. HEENT: Examination shows no pallor or scleral icterus. Oral mucosa dry. NECK: Trachea central, no organomegaly. LUNGS: Unlabored breathing, clear to auscultation anteriorly. HEART: S1, S2. Regular rate and rhythm. ABDOMEN: Soft, no tenderness, no rigidity. EXTREMITIES: No edema of the feet. Examination of the upper back area did have area of the swelling, redness, warm to touch, slightly fluctuant, but no drainage. NEUROLOGICAL: Patient is awake, alert, oriented. Mood and affect normal. LABS: Hemoglobin 14.8, white count 2.2 with a BUN of 10, creatinine 0.78. Liver enzymes are normal. CRP did show elevated wound, PCR was negative. CT did not show any drainable abscess. DIAGNOSTIC IMPRESSION: Patient admitted to the hospital with sepsis, source is upper back cellulitis and a question of possible abscess likely from a gram-positive skin coleman such as strep and MSSA, less likely gram-negative infection in this patient with underlying diabetes mellitus. PLAN: 1. Pawan the area of the redness. 2. Continue with cefazolin 3 g q.8 hours; however, add clindamycin 900 q.8 hours. 3. If able, to drain to the cultures. 4. We will follow on his clinical condition and culture to further adjust medication if needed. Thank you for this consultation. Will follow this patient along with you. MMODL / IJN: [id number] /
[2019-12-31 09:27] LABS: Anion Gap 7.6 mmol/L (4.00-12.00); BUN/Creat Ratio 11.11 Ratio (12.00-20.00); Calcium 8.1 mg/dL (8.7-10.3); Carbon Dioxide 25.4 mmol/L (21.6-31.8); Non-African American GFR(CKD) 95.8 (60.0-200.0); Potassium 4.1 mmol/L (3.5-5.5)
--- NOTE | 2019-12-31 10:42 | XR ---
EXAMINATION TYPE: XR chest 1V DATE OF EXAM: 12/31/2019 HISTORY: Shortness of breath. COMPARISON: 10/20/2015 TECHNIQUE: Single view of the chest is submitted. FINDINGS: Demonstrated are scattered senescent parenchymal change. Mild increased density right infrahilar region may reflect developing infiltrate. Correlate clinicall y and consider progress studies. The heart is stable. Hilar and mediastinal structures are within normal limits. Degenerative changes are seen of the dorsal spine. IMPRESSION: 1. Mild increased density right infrahilar region may reflect developing infiltrate. Correlate clini prem and consider progress studies.
[2019-12-31 11:26] LABS: Glucose,Whole Blood 208 mg/dL (75-99)
[2019-12-31] MEDS ORDERED: SODIUM CHLORIDE 0.9% 1,000 ML IV ONE ×2 (12:57→16:18)
--- NOTE | 2019-12-31 13:36 | P.GSCN ---
History of Present Illness Consult date: 12/31/19 History of present illness: CHIEF COMPLAINT: Cellulitis of the upper back HISTORY OF PRESENT ILLNESS: This is a 54-year-old male with a known history of prior cellulitis of his upper back. Also history of diabetes, CVA 4, hyperlipidemia, hypertension and sleep apnea. Patient presents to the emergency room with a 2 day history of developing cellulitis in area of papules in the upper back. He has been having fevers. He had a a temp of 102.7 with a white count 22.2 on admission. No prior history of MRSA. He was started on IV Cleocin in the emergency room. Infectious disease is following. Patient had CT scan of the chest cellulitis of the right neck and upper back with associated underlying myositis. No fluid collection. Patient does admit to having fever, chills and sweats. Denies any abdominal pain. Denies any nausea vomiting. Patient denies any injury to that area. PAST MEDICAL HISTORY: See list. PAST SURGICAL HISTORY: See list. MEDICATIONS: See list. ALLERGIES: See list. SOCIAL HISTORY: No illicit drug use. REVIEW OF SYSTEMS: CONSTITUTIONAL: Denies fever or chills. HEENT: Denies blurred vision, vision changes, or eye pain. Denies hemoptysis CARDIOVASCULAR: Denies chest pain or pressure. RESPIRATORY: No shortness of breath. GASTROINTESTINAL: See HPI for pertinent findings HEMATOLOGIC: Denies bleeding disorders. GENITOURINARY: Denies any blood in urine or increased urinary frequency. SKIN: Denies pruitis. Denies rash. PHYSICAL EXAM: VITAL SIGNS: Reviewed GENERAL: Well-developed in no acute distress. HEENT: No sclera icterus. Extraocular movements grossly intact. Moist buccal mucosa. Head is atraumatic, normocephalic. No nasal drainage. ABDOMEN: Soft. Nondistended. Nontender NEUROLOGIC: Alert and oriented. Cranial nerves II through XII grossly intact. Back: Patient's upper back there is a large area of cellulitis with erythema and warmth to touch. No drainage. Tender with palpation. It is not fluctuant. It is indurated. A small area of pustules noted. No drainage at this time LABORATORY DATA: WBC 22.2 sodium 133 A1c 10.8 glucose 208 Covid negative Culture results show presumptive staph aureus IMAGING: CT scan of the chest showed cellulitis of the right neck and upper back with associated underlying myositis. No fluid collection. ASSESSMENT: 1. Cellulitis with sepsis. Computed tomography scan showed no evidence of fluid collection. No evidence of abscess. 2. Prior history of cellulitis to the upper back 3. Diabetes mellitus insulin-dependent, uncontrolled blood sugars PLAN: -No surgical intervention planned -Continue with IV antibiotics per ID Thank you for this consultation Physician Medical Billing Clerk note has been reviewed by physician. Signing provider agrees with the documented findings, assessment, and plan of care. 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 Past Anesthesia/Blood Transfusion Reactions: No Reported Reaction Additional Past Anesthesia/Blood Transfusion Reaction / Comm: CLAUTERPHOBIA Past Psychological History: Depression Past Alcohol Use History: Rare Past Drug Use History: None Reported - Past Family History Mother Family Medical History: Diabetes Mellitus Father Family Medical History: Cancer Medications and Allergies Home Medications Medication Instructions Recorded Confirmed Type Enalapril [Vasotec] 10 mg PO BID 10/05/13 12/30/19 History Multivitamins, Thera [Multivitamin 1 tab PO DAILY 10/05/13 12/30/19 History (formulary)] Clopidogrel Bisulfate [Plavix] 75 mg PO DAILY #30 tab 05/25/14 12/30/19 Rx Insulin Glargine [Lantus] 75 unit SQ HS 02/01/15 12/30/19 History Nitroglycerin Sl Tabs [Nitrostat] 0.4 mg SUBLINGUAL Q5M PRN 02/01/15 12/30/19 History Gabapentin 600 mg PO TID 10/20/15 12/30/19 History INSULIN ASPART (NovoLOG) [NovoLOG] 45 units SQ AC-TID 10/20/15 12/30/19 History metFORMIN HCL 1,000 mg PO BID 10/20/15 12/30/19 History Exenatide Microspheres [Bydureon 2 mg SQ MO 12/30/19 12/30/19 History Pen] Simvastatin [Zocor] 40 mg PO HS 12/30/19 12/30/19 History Allergies Allergy/AdvReac Type Severity Reaction Status Date / Time codeine Allergy Severe Anaphylaxis Verified 12/30/19 08:56 meloxicam Allergy Swelling Verified 12/30/19 08:56 Surgical - Exam Vital Signs Temp Pulse Resp BP Pulse Ox 102.7 F H 140 H 18 167/85 95 12/29/19 23:06 12/29/19 23:06 12/29/19 23:06 12/29/19 23:06 12/29/19 23:06 Results - Labs 12/29/19 23:22 12/31/19 05:15 Abnormal Lab Results - Last 24 Hours (Table) 12/29/19 12/30/19 12/31/19 Range/Units 23:22 17:15 05:15 Sodium (135-145) mmol/L BUN/Creatinine Ratio (12.00-20.00) Ratio Glucose (70-110) mg/dL POC Glucose (mg/dL) 359 H (75-99) mg/dL Hemoglobin A1c 10.8 H (4.0-6.0) % Calcium (8.7-10.3) mg/dL Creatine Kinase 204 H (55-170) U/L 12/31/19 12/31/19 12/31/19 Range/Units 05:15 07:23 11:24 Sodium 133 L (135-145) mmol/L BUN/Creatinine Ratio 11.11 L (12.00-20.00) Ratio Glucose 227 H (70-110) mg/dL POC Glucose (mg/dL) 235 H 208 H (75-99) mg/dL Hemoglobin A1c (4.0-6.0) % Calcium 8.1 L (8.7-10.3) mg/dL Creatine Kinase (55-170) U/L Microbiology - Last 24 Hours (Table) 12/30/19 14:52 Gram Stain - Preliminary Back Wound Culture - Preliminary Presumptive Staph aureus 12/29/19 23:22 Blood Culture - Preliminary Blood No Growth after 24 hours 12/30/19 14:52 Anaerobic Culture - Preliminary Back Diabetes panel 12/29/19 12/31/19 Range/Units 23:22 05:15 Sodium 133 L (135-145) mmol/L Potassium 4.1 (3.5-5.5) mmol/L Chloride 100 (96-109) mmol/L Carbon Dioxide 25.4 (21.6-31.8) mmol/L BUN 10.0 (9.0-27.0) mg/dL Creatinine 0.9 (0.6-1.5) mg/dL Glucose 227 H (70-110) mg/dL Hemoglobin A1c 10.8 H (4.0-6.0) % Calcium 8.1 L (8.7-10.3) mg/dL Calcium panel 12/31/19 Range/Units 05:15 Calcium 8.1 L (8.7-10.3) mg/dL Pituitary panel 12/31/19 Range/Units 05:15 Sodium 133 L (135-145) mmol/L Potassium 4.1 (3.5-5.5) mmol/L Chloride 100 (96-109) mmol/L Carbon Dioxide 25.4 (21.6-31.8) mmol/L BUN 10.0 (9.0-27.0) mg/dL Creatinine 0.9 (0.6-1.5) mg/dL Glucose 227 H (70-110) mg/dL Calcium 8.1 L (8.7-10.3) mg/dL Adrenal panel 12/31/19 Range/Units 05:15 Sodium 133 L (135-145) mmol/L Potassium 4.1 (3.5-5.5) mmol/L Chloride 100 (96-109) mmol/L Carbon Dioxide 25.4 (21.6-31.8) mmol/L BUN 10.0 (9.0-27.0) mg/dL Creatinine 0.9 (0.6-1.5) mg/dL Glucose 227 H (70-110) mg/dL Calcium 8.1 L (8.7-10.3) mg/dL
[2019-12-31 13:40] VITALS: BMI 45.6
[2019-12-31] MEDS ORDERED: VANCOMYCIN IV PER PHARMACY 1 EACH MISC MISCELLANE PRN (16:00)
[2019-12-31 16:01] LABS: Glucose,Whole Blood 70 mg/dL (75-99)
--- NOTE | 2019-12-31 16:08 | P.PN ---
Subjective Patient is admitted with sepsis secondary to abscess in the upper back. He is to have infected sebaceous cyst which is actively draining at this time there are areas of pus pockets which are draining at this time. Wound cultures were obtained which is showing staph aureus. Patient will be started on vancomycin as patient is tachycardic now it appears to be severely septic will obtain a lactic acid level along with ABG. Patient is tachycardic apparently he was tachycardic in 200s heart rate presently around 150 obtaining an EKG to check th e rhythm. Unfortunately there are no beds available in ICU stepdown unit. She was given a bolus of IV fluids will give 1 more liter bolus at this time. Patient is presently on 4 L of oxygen patient was on ceftezole and will will be started on vancomycin and continue with clindamycin. Patient is hyponatremic hyponatremia improved at this time. Patient that diabetes is uncontrolled presently blood sugars are bit better compared to yesterday. Patient can use to be febrile Constitutional: Does have fever. Cardio vascular: denied any chest pain, palpitations Gastrointestinal denied any nausea vomiting Pulmonary: Denied any shortness of breath cough Neurologic denied any new focal deficits All inpatient medications were reviewed and appropriate changes in these medications as dictated in the interval history and assessment and plan. Objective - Vital Signs Vital signs: Vital Signs Temp 98.7 F 12/31/19 13:05 Pulse 120 H 12/31/19 12:16 Resp 18 12/31/19 12:16 BP 102/55 12/31/19 12:16 Pulse Ox 96 12/31/19 05:00 Intake & Output 12/30/19 12/31/19 12/31/19 18:59 06:59 18:59 Output Total 400 600 Balance -400 -600 Weight 128.367 kg Output: Urine 400 600 Other: Voiding Method Toilet Toilet # Voids 1 - Exam PHYSICAL EXAMINATION: GENERAL: The patient is alert and oriented x3, not in any acute distress. Obese HEENT: Pupils are round and equally reacting to light. EOMI. No scleral icterus. No conjunctival pallor. Normocephalic, atraumatic. No pharyngeal erythema. No thyromegaly. CARDIOVASCULAR: S1 and S2 present. No murmurs, rubs, or gallops. Tachycardic appears to be sinus tachycardia PULMONARY: Chest is clear to auscultation, no wheezing or crackles. ABDOMEN: Soft, nontender, nondistended, normoactive bowel sounds. No palpable organomegaly. MUSCULOSKELETAL: No joint swelling or deformity. EXTREMITIES: No cyanosis, clubbing, or pedal edema. NEUROLOGICAL: Gross neurological examination did not reveal any focal deficits. SKIN: Patient has extensive cellulitis with induration on the back upper back just below the neck area predominantly in the right side extending beyond the midline with local is of temperature. And has areas of pus pocket which are actively draining appears to have infected sebaceous cyst - Labs CBC & Chem 7: 12/29/19 23:22 12/31/19 05:15 Labs: Abnormal Lab Results - Last 24 Hours (Table) 12/29/19 12/30/19 12/31/19 Range/Units 23:22 17:15 05:15 Sodium (135-145) mmol/L BUN/Creatinine Ratio (12.00-20.00) Ratio Glucose (70-110) mg/dL POC Glucose (mg/dL) 359 H (75-99) mg/dL Hemoglobin A1c 10.8 H (4.0-6.0) % Calcium (8.7-10.3) mg/dL Creatine Kinase 204 H (55-170) U/L 12/31/19 12/31/19 12/31/19 Range/Units 05:15 07:23 11:24 Sodium 133 L (135-145) mmol/L BUN/Creatinine Ratio 11.11 L (12.00-20.00) Ratio Glucose 227 H (70-110) mg/dL POC Glucose (mg/dL) 235 H 208 H (75-99) mg/dL Hemoglobin A1c (4.0-6.0) % Calcium 8.1 L (8.7-10.3) mg/dL Creatine Kinase (55-170) U/L 12/31/19 Range/Units 15:59 Sodium (135-145) mmol/L BUN/Creatinine Ratio (12.00-20.00) Ratio Glucose (70-110) mg/dL POC Glucose (mg/dL) 70 L (75-99) mg/dL Hemoglobin A1c (4.0-6.0) % Calcium (8.7-10.3) mg/dL Creatine Kinase (55-170) U/L Microbiology - Last 24 Hours (Table) 12/30/19 14:52 Gram Stain - Preliminary Back Wound Culture - Preliminary Presumptive Staph aureus 12/29/19 23:22 Blood Culture - Preliminary Blood No Growth after 24 hours 12/30/19 14:52 Anaerobic Culture - Preliminary Back Assessment and Plan Plan: -Sepsis and cellulitis with induration and possible early abscess or infectious sebaceous cyst of the right upper back. Patient appears to be severely septic at this time will obtain lactic acid as mentioned above we'll obtain ABG EKG. Patient was given a bolus of IV fluids will give one more bolus of IV fluid patient was receiving 1 30 mL of normal saline at yesterday. -Acute hypoxic respiratory failure: Secondary to possibly sepsis patient is pre sently on 4 L proximal after a chest x-ray. -Tachycardia secondary to sepsis -Hyponatremia: Pseudohyponatremia along with hypovolemic hyponatremia independent improvement after IV fluids. -Type 2 diabetes mellitus uncontrolled better controlled compared to yesterday will continue to monitor on present regimen -Hypertension: Patient is severely septic and hypotensive because of which will hold off on antidepressant medications. -Sleep apnea uses CPAP machine at home. -DVT prophylaxis with Lovenox.
[2019-12-31 16:14] LABS: Glucose,Whole Blood 101 mg/dL (75-99)
--- NOTE | 2019-12-31 16:19 | XR ---
EXAMINATION TYPE: XR chest 1V portable DATE OF EXAM: 12/31/2019 HISTORY: Shortness of breath. COMPARISON: 12/31/2019 TECHNIQUE: Single view of the chest is submitted. FINDINGS: Demonstrated are scattered senescent parenchymal change. There is right perihilar infiltrate. The heart is stable. Hilar and mediastinal structures are within normal limits. Degenerative changes are seen of the dorsal spine. IMPRESSION: 1. Correlate for right perihilar infiltrate.
[2019-12-31 16:36] LABS: ABG Base Excess -1.1 mmol/L; ABG HCO3 23 mmol/L (21-25); ABG PCO2 33 mmHg (35-45); ABG PH 7.45 (7.35-7.45); ABG PO2 75 mmHg (83-108); ABG TCO2 24 mmol/L (19-24); Allen Test Performed? Yes
[2019-12-31] MEDS ORDERED: DILTIAZEM DRIP BOLUS FROM BAG 1 MG SOLN IV ONE (17:14)
[2019-12-31] MEDS ORDERED: HEPARIN SODIUM,PORCINE 5,000 UNIT/ML 1 ML VIAL IV ONE (17:15)
[2019-12-31] MEDS: VANCOMYCIN 2,000 MG in SODIUM CHLORIDE 0.9% 500 ML 500 ML IVPB SCH (17:20)
[2019-12-31 17:30] LABS: Partial Thromboplastin Time 23.9 sec (22.0-30.0)
[2019-12-31] MEDS: DILTIAZEM 125 MG in SODIUM CHLORIDE 0.9% 100 ML IV SCH (17:32)
[2019-12-31 17:43] LABS: Basophils # (A) 0.2 k/uL (0-0.2); Basophils % (A) 1 %; Eosinophils # (A) 0.3 k/uL (0-0.7); Eosinophils % (A) 1 %; HCT 40.9 % (39.0-53.0); HGB 13.1 gm/dL (13.0-17.5); Lymphocytes % (A) 5 %; MCH 29.2 pg (25.0-35.0); MCHC 32.1 g/dL (31.0-37.0); MCV 91.1 fL (80.0-100.0); Mean Platelet Volume 9.1; Monocytes # (A) 0.9 k/uL (0-1.0); Monocytes % (A) 4 %; Neutrophils # (A) 18.4 k/uL (1.3-7.7); Neutrophils % (A) 88 %; Platelet Count 311 k/uL (150-450); RBC 4.49 m/uL (4.30-5.90); RDW 12.7 % (11.5-15.5); WBC 21.1 k/uL (3.8-10.6)
[2019-12-31] MEDS: HEPARIN SOD,PORK IN 0.45% NACL 25,000 UNIT in 0.45% NACL 1 250ML.BAG IV SCH (17:47)
[2019-12-31 20:37] LABS: Glucose,Whole Blood 216 mg/dL (75-99)
[2019-12-31] MEDS: ATORVASTATIN 20 MG TAB PO SCH (21:38)
[2019-12-31 21:40] LABS: Glucose,Whole Blood 197 mg/dL (75-99)
[2019-12-31] MEDS: INSULIN DETEMIR (LEVEMIR) 100 UNIT/ML SYR SQ SCH (21:40)
--- NOTE | 2019-12-31 22:02 | PN ---
PROGRESS NOTE DATE OF SERVICE: 12/31/2019 REASON FOR FOLLOWUP: Upper back infected sebaceous cyst and cellulitis. INTERVAL HISTORY: The patient did spike another fever this afternoon of 101.4. The patient was also noted to be tachycardic but hemodynamically stable. The patient subsequently has been transferred down to ICU. The patient denies having any chest pain or shortness of breath or cough. Denies any worsening pain to the upper back area. No vomiting or diarrhea. PHYSICAL EXAMINATION: Blood pressure 103/62 with a pulse of 130, temperature 98, T-max 101.4. He is 94% on 4 L nasal cannula. General description is a middle-aged male lying in bed in no distress. RESPIRATORY SYSTEM: Unlabored breathing with decreased intensity of breath sounds. HEART: S1, S2. Tachycardia. ABDOMEN: Soft. No tenderness. EXAMINATION OF THE BACK AREA: Swelling and redness minimally decreased. However, he did have purulent drainage. LABS: Hemoglobin is 13.1, white count 21.1. Wound culture with presumptive Staph aureus. Blood culture so far negative. DIAGNOSTIC IMPRESSION AND PLAN: Patient with upper back likely infected sebaceous cyst and cellulitis with concern for an abscess. Culture has been positive for Staph aureus, likely MSSA. Patient is covered with clindamycin. In view of the change in his clinical condition, antibiotic has been to vancomycin while waiting for the final sensitivity. Monitor his clinical course closely. MMODL / IJN: [id number] /
[2019-12-31] MEDS: HEPARIN SODIUM,PORCINE 5,000 UNIT/ML 1 ML VIAL IV PRN (23:51)
[2020-01-01] MEDS: DILTIAZEM 125 MG in SODIUM CHLORIDE 0.9% 100 ML IV SCH (03:23)
[2020-01-01] MEDS: SODIUM CHLORIDE 0.9% 1,000 ML IV SCH ×3 (03:23→16:18)
[2020-01-01] MEDS: VANCOMYCIN 2,000 MG in SODIUM CHLORIDE 0.9% 500 ML 500 ML IVPB SCH ×2 (04:44→17:39)
[2020-01-01 04:55] LABS: HCT 36.1 % (39.0-53.0); HGB 11.5 gm/dL (13.0-17.5); MCH 28.6 pg (25.0-35.0); MCHC 31.8 g/dL (31.0-37.0); MCV 90.2 fL (80.0-100.0); Mean Platelet Volume 8.8; Platelet Count 301 k/uL (150-450); RDW 12.9 % (11.5-15.5); WBC 20.3 k/uL (3.8-10.6)
[2020-01-01 05:18] LABS: African American GFR (CKD) >90 (>60 ml/min/1.73 sqM); Anion Gap 4 mmol/L; Blood Urea Nitrogen 11 mg/dL (9-20); Calcium 7.4 mg/dL (8.4-10.2); Carbon Dioxide 23 mmol/L (22-30); Chloride 104 mmol/L (98-107); Glucose 212 mg/dL (74-99); Non-African American GFR(CKD) >90 (>60 ml/min/1.73 sqM); Potassium 3.9 mmol/L (3.5-5.1); Sodium 131 mmol/L (137-145)
[2020-01-01] MEDS ORDERED: Potassium Replacement Protocol 1 EACH MISC MISCELLANE PRN (05:34)
[2020-01-01] MEDS: HEPARIN SODIUM,PORCINE 5,000 UNIT/ML 1 ML VIAL IV PRN ×2 (05:37→12:26)
[2020-01-01] MEDS ORDERED: POTASSIUM CHLORIDE ER 20 MEQ TAB.ER PO SCH (06:00)
[2020-01-01 07:26] LABS: Glucose,Whole Blood 192 mg/dL (75-99)
[2020-01-01 08:12] LABS: Glucose,Whole Blood 261 mg/dL (75-99)
[2020-01-01] MEDS: GABAPENTIN 300 MG CAP PO SCH ×3 (08:20→21:21)
[2020-01-01] MEDS: CLINDAMYCIN 900 MG in DEXTROSE 5% IN WATER 50 ML IVPB SCH ×4 (08:21→16:17)
[2020-01-01] MEDS: MULTIVITAMINS, THERA 1 EACH TAB PO SCH (08:21)
[2020-01-01] MEDS: CLOPIDOGREL 75 MG TAB PO SCH (08:21)
[2020-01-01] MEDS: FAMOTIDINE 20 MG TAB PO SCH ×2 (08:21→21:21)
[2020-01-01] MEDS: INSULIN ASPART (NovoLOG) 100 UNIT/ML VIAL SQ SCH ×7 (08:22→21:21)
[2020-01-01] MEDS: ACETAMINOPHEN TAB 325 MG TAB PO PRN (08:33)
--- NOTE | 2020-01-01 09:26 | P.CNPUL ---
History of Present Illness Consult date: 01/01/20 Requesting physician: Roque Hardy Reason for consult: other (Critical care management) Chief complaint: Pain and redness with swelling of possible bite on the back History of present illness: This is a very pleasant 54-year-old gentleman who follows with Dr. Efren Daley as his primary care provider. He has a history of diabetes mellitus, hypertension, hyperlipidemia, CVA/TIA, obstructive sleep apnea on CPAP in the outpatient setting. He presented to the emergency room on 12/29/2019 with complaints of generalized fatigue weakness shortness of breath, nausea. He did develop a small bump on the right upper back that he felt was a bug bite of some sort. Prior to his arrival at [facility] open was draining copious amounts of purulent fluid. He's had fevers and aches and pains. Yesterday while on the regular medical floor the patient developed atrial fibrillation with rapid ventricular response. An A Team was called and patient with subsequent transferred here to the intensive care unit. He is on 4 L/m per nasal cannula and maintaining O2 saturations in the 90s. He has Cardizem drip at 10 mg per hour. Initiated on a heparin drip per weight base protocol. 0.9 normal saline at 130 ML's per hour. Wound culture showing presumptive MRSA. He is currently on Ancef, clindamycin, vancomycin. Chest x-ray reveals right perihilar infiltrate. He is seen today in consultation in the intensive care unit. He is currently sitting up in a chair at the bedside. Awake and alert in no acute distress. He is feeling a bit better today compared to yesterday. He is febrile with a temp of 101.7. Remains tachycardic in the 110s. White count 20.3. Hemoglobin 11.5. Sodium 131. Potassium 3.9. Creatinine 0.68. Kwon virus not detected. Review of Systems REVIEW OF SYSTEMS: CONSTITUTIONAL: Fever. Generalized weakness, fatigue. Denies any recent significant weight loss or weight gain. EYES: Denies change in vision. EARS, NOSE, MOUTH, THROAT: Denies headaches, denies sore throat. CARDIOVASCULAR: Denies chest pain or syncopal episodes. Palpitations. RESPIRATORY: Positive for shortness of breath, cough, congestion no hemoptysis. GASTROINTESTINAL: Slight nausea, poor appetite, denies abdominal pain GENITOURINARY: Denies hematuria, denies infections. MUSKULOSKELETAL: Denies pain, denies swelling. INTEGUMENTARY: Positive draining wound on the right upper back with redness and edema NEUROLOGICAL: Denies recent memory loss, no recent seizure activity. PSYCHIATRIC: Denies anxiety, denies depression. HEMATOLOGIC/LYMPHATIC: Denies anemia, denies enlarged lymph nodes. 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 Past Anesthesia/Blood Transfusion Reactions: No Reported Reaction Additional Past Anesthesia/Blood Transfusion Reaction / Comment(s): CLAUTERPHOBIA Past Psychological History: Depression Past Alcohol Use History: Rare Past Drug Use History: None Reported - Past Family History Mother Family Medical History: Diabetes Mellitus Father Family Medical History: Cancer Medications and Allergies Home Medications Medication Instructions Recorded Confirmed Type Enalapril [Vasotec] 10 mg PO BID 10/05/13 12/30/19 History Multivitamins, Thera [Multivitamin 1 tab PO DAILY 10/05/13 12/30/19 History (formulary)] Clopidogrel Bisulfate [Plavix] 75 mg PO DAILY #30 tab 05/25/14 12/30/19 Rx Insulin Glargine [Lantus] 75 unit SQ HS 02/01/15 12/30/19 History Nitroglycerin Sl Tabs [Nitrostat] 0.4 mg SUBLINGUAL Q5M PRN 02/01/15 12/30/19 History Gabapentin 600 mg PO TID 10/20/15 12/30/19 History INSULIN ASPART (NovoLOG) [NovoLOG] 45 units SQ AC-TID 10/20/15 12/30/19 History metFORMIN HCL 1,000 mg PO BID 10/20/15 12/30/19 History Exenatide Microspheres [Bydureon 2 mg SQ MO 12/30/19 12/30/19 History Pen] Simvastatin [Zocor] 40 mg PO HS 12/30/19 12/30/19 History Allergies Allergy/AdvReac Type Severity Reaction Status Date / Time codeine Allergy Severe Anaphylaxis Verified 12/30/19 08:56 meloxicam Allergy Swelling Verified 12/30/19 08:56 Physical Exam Vitals: Vital Signs Temp Pulse Pulse Pulse Resp BP BP 01/01/20 08:00 100.7 F H 111 H 16 136/69 01/01/20 07:00 107 H 16 118/70 01/01/20 06:00 113 H 14 113/48 01/01/20 05:00 107 H 19 113/65 01/01/20 04:00 100.3 F H 109 H 18 123/85 01/01/20 03:00 108 H 20 113/72 01/01/20 02:00 107 H 18 107/67 01/01/20 01:00 113 H 15 115/53 01/01/20 00:00 98.2 F 112 H 20 111/65 12/31/19 23:00 116 H 20 130/75 12/31/19 22:00 113 H 14 114/85 12/31/19 21:00 120 H 16 112/72 12/31/19 20:00 99.1 F 124 H 16 115/61 12/31/19 19:54 120 H 15 12/31/19 19:00 98.0 F 130 H 24 103/62 12/31/19 18:08 99.4 F 140 H 26 H 117/82 12/31/19 17:41 100.6 F H 144 H 31 H 126/78 12/31/19 17:24 101.4 F H 220 H 28 H 139/74 12/31/19 16:30 99 F 200 H 12/31/19 16:00 100.7 F H 116/92 12/31/19 15:40 200 H 26 H 146/61 12/31/19 14:00 98.1 F 191 H 107/71 12/31/19 13:05 98.7 F 12/31/19 12:16 102.1 F H 120 H 18 102/55 Pulse Ox 01/01/20 08:00 94 L 01/01/20 07:00 95 01/01/20 06:00 95 01/01/20 05:00 96 01/01/20 04:00 96 01/01/20 03:00 95 01/01/20 02:00 97 01/01/20 01:00 98 01/01/20 00:00 96 12/31/19 23:00 97 12/31/19 22:00 97 12/31/19 21:00 96 12/31/19 20:00 97 12/31/19 19:54 12/31/19 19:00 94 L 12/31/19 18:08 97 12/31/19 17:41 97 12/31/19 17:24 98 12/31/19 16:30 12/31/19 16:00 12/31/19 15:40 92 L 12/31/19 14:00 92 L 12/31/19 13:05 12/31/19 12:16 Intake and Output 12/31/19 01/01/20 01/01/20 22:59 06:59 14:59 Intake Total 2378.667 2070.901 310 Output Total 350 1100 0 Balance 2028.667 970.901 310 Intake: IV 2155 1090 310 Clindamycin 900 mg In 50 50 Dextrose 5% in Water 50 ml @ 50 mls/hr IVPB Q8HR [facility] Rx#:[id number] Diltiazem 125 mg In 5 Sodium Chloride 0.9% 100 ml @ Per Protocol IV .Q0M [facility] Rx#:[id number] Sodium Chloride 0.9% 1, 650 1040 260 000 ml @ 130 mls/hr IV . Q7H42M [facility] Rx#:[id number] Sodium Chloride 0.9% 1, 1000 000 ml @ 999 mls/hr IV . Q1H1M [facility] Rx#:[id number] Vancomycin 2,000 mg In 500 Sodium Chloride 0.9% 500 ml 500 ml @ 167 mls/hr IVPB Q12H [facility] Rx#: [id number] Intake, IV Titration 3.667 480.901 Amount Diltiazem 125 mg In 3.667 91.167 Sodium Chloride 0.9% 100 ml @ Per Protocol IV .Q0M [facility] Rx#:[id number] Heparin Sod,Pork in 0.45% 139.734 NaCl 25,000 unit In 0.45 % NaCl 1 250ml.bag @ 7.79 UNITS/KG/HR 10 mls/hr IV .Q24H [facility] Rx#:[id number] Sodium Chloride 0.9% 1, 250 000 ml @ 100 mls/hr IV . Q10H [facility] Rx#:[id number] Oral 220 500 Output: Urine 350 1100 0 Other: Voiding Method Toilet Toilet Urinal # Voids 1 0 0 # Bowel Movements 0 Weight 129.9 kg GENERAL EXAM: Alert, obese, pleasant 54-year-old gentleman, on 4 L nasal cannula, comfortable in no apparent distress. HEAD: Normocephalic. EYES: Normal reaction of pupils, equal size. NOSE: Clear with pink turbinates. THROAT: Crowding of posterior pharynx No erythema or exudates. NECK: No masses, no JVD. CHEST: No chest wall deformity. LUNGS: Equal air entry with few scattered rhonchi, diminished. CVS: S1 and S2 normal with no audible murmur, regular rhythm. ABDOMEN: No hepatosplenomegaly, normal bowel sounds, no guarding or rigidity. SPINE: No scoliosis or deformity SKIN: Large area of the right upper back with edema, redness, warmth and open drainage. CENTRAL NERVOUS SYSTEM: No focal deficits, tone is normal in all 4 extremities. EXTREMITIES: There is no peripheral edema. No clubbing, no cyanosis. Per ipheral pulses are intact. Results - Laboratory Findings CBC and BMP: 01/01/20 04:17 01/01/20 04:17 ABG ABG pH 7.45 (7.35-7.45) 12/31/19 16:25 ABG pCO2 33 mmHg (35-45) L 12/31/19 16:25 ABG pO2 75 mmHg (83-108) L 12/31/19 16:25 ABG O2 Saturation 97.0 % (94-97) 12/31/19 16:25 PT/INR, D-dimer PT 10.0 sec (9.0-12.0) 12/31/19 17:06 INR 1.0 (<1.2) 12/31/19 17:06 D-Dimer 1.08 mg/L FEU (<0.60) H 12/29/19 23:22 Abnormal lab findings: Abnormal Labs 12/29/19 12/29/19 12/29/19 23:22 23:22 23:22 WBC 22.2 H RBC Hgb Hct Neutrophils # 19.1 H D-Dimer 1.08 H ABG pCO2 ABG pO2 Sodium Chloride BUN/Creatinine Ratio Glucose POC Glucose (mg/dL) Hemoglobin A1c Calcium Alkaline Phosphatase Lactate Dehydrogenase Creatine Kinase C-Reactive Protein Procalcitonin Urine Protein 1+ H Urine Glucose (UA) 4+ H Urine Ketones 3+ H Urine Blood Small H Urine Mucus Rare H 12/29/19 12/29/19 12/29/19 23:22 23:22 23:22 WBC RBC Hgb Hct Neutrophils # D-Dimer ABG pCO2 ABG pO2 Sodium 127 L Chloride 93 L BUN/Creatinine Ratio Glucose 312 H POC Glucose (mg/dL) Hemoglobin A1c 10.8 H Calcium Alkaline Phosphatase 157 H Lactate Dehydrogenase 712 H Creatine Kinase 307 H C-Reactive Protein 347.8 H Procalcitonin 0.39 H Urine Protein Urine Glucose (UA) Urine Ketones Urine Blood Urine Mucus 12/30/19 12/30/19 12/30/19 08:14 12:08 17:15 WBC RBC Hgb Hct Neutrophils # D-Dimer ABG pCO2 ABG pO2 Sodium Chloride BUN/Creatinine Ratio Glucose POC Glucose (mg/dL) 252 H 245 H 359 H Hemoglobin A1c Calcium Alkaline Phosphatase Lactate Dehydrogenase Creatine Kinase C-Reactive Protein Procalcitonin Urine Protein Urine Glucose (UA) Urine Ketones Urine Blood Urine Mucus 12/31/19 12/31/19 12/31/19 05:15 05:15 07:23 WBC RBC Hgb Hct Neutrophils # D-Dimer ABG pCO2 ABG pO2 Sodium 133 L Chloride BUN/Creatinine Ratio 11.11 L Glucose 227 H POC Glucose (mg/dL) 235 H Hemoglobin A1c Calcium 8.1 L Alkaline Phosphatase Lactate Dehydrogenase Creatine Kinase 204 H C-Reactive Protein Procalcitonin Urine Protein Urine Glucose (UA) Urine Ketones Urine Blood Urine Mucus 12/31/19 12/31/19 12/31/19 11:24 15:59 16:13 WBC RBC Hgb Hct Neutrophils # D-Dimer ABG pCO2 ABG pO2 Sodium Chloride BUN/Creatinine Ratio Glucose POC Glucose (mg/dL) 208 H 70 L 101 H Hemoglobin A1c Calcium Alkaline Phosphatase Lactate Dehydrogenase Creatine Kinase C-Reactive Protein Procalcitonin Urine Protein Urine Glucose (UA) Urine Ketones Urine Blood Urine Mucus 12/31/19 12/31/19 12/31/19 16:25 17:15 20:25 WBC 21.1 H RBC Hgb Hct Neutrophils # 18.4 H D-Dimer ABG pCO2 33 L ABG pO2 75 L Sodium Chloride BUN/Creatinine Ratio Glucose POC Glucose (mg/dL) 216 H Hemoglobin A1c Calcium Alkaline Phosphatase Lactate Dehydrogenase Creatine Kinase C-Reactive Protein Procalcitonin Urine Protein Urine Glucose (UA) Urine Ketones Urine Blood Urine Mucus 12/31/19 01/01/20 01/01/20 21:39 04:17 04:17 WBC 20.3 H RBC 4.00 L Hgb 11.5 L Hct 36.1 L Neutrophils # D-Dimer ABG pCO2 ABG pO2 Sodium 131 L Chloride BUN/Creatinine Ratio Glucose 212 H POC Glucose (mg/dL) 197 H Hemoglobin A1c Calcium 7.4 L Alkaline Phosphatase Lactate Dehydrogenase Creatine Kinase C-Reactive Protein Procalcitonin Urine Protein Urine Glucose (UA) Urine Ketones Urine Blood Urine Mucus 01/01/20 01/01/20 07:13 08:10 WBC RBC Hgb Hct Neutrophils # D-Dimer ABG pCO2 ABG pO2 Sodium Chloride BUN/Creatinine Ratio Glucose POC Glucose (mg/dL) 192 H 261 H Hemoglobin A1c Calcium Alkaline Phosphatase Lactate Dehydrogenase Creatine Kinase C-Reactive Protein Procalcitonin Urine Protein Urine Glucose (UA) Urine Ketones Urine Blood Urine Mucus - Diagnostic Findings Chest x-ray: image reviewed Assessment and Plan Assessment: 1 Acute cellulitis with sepsis injury to the right upper back wound infection with presumptive MRSA 2 Leukocytosis secondary to above 3 Atrial fibrillation with rapid ventricular response, currently on Cardizem drip, heparin drip 4 Acute on chronic hypoxic respiratory failure secondary to right perihilar infiltrate 5 History of obstructive sleep apnea and on CPAP in the outpatient setting 6 Diabetes mellitus 7 Hyperlipidemia 8 Hypertension 9 History of CVA/TIA Plan: The patient was seen and evaluated by Dr. Palmer. Continue with the current antibiotics for now ID is on the case Surgical services are consulted Titrate the FiO2 as tolerated We'll continue to follow and make further recommendations based on his clinical status I, the cosigning physician, performed a history & physical examination of the patient. Lungs sounds with scattered rhonchi. Maintaining good O2 saturations in the 90s on or liters per minute per nasal cannula. I discussed the assessment and plan of care with my nurse practitioner, Shelli Montemayor. I attest to the above note as dictated by her. Time with Patient: Greater than 30
--- NOTE | 2020-01-01 10:56 | P.PN ---
Subjective Progress Note Date: 01/01/20 CHIEF COMPLAINT: Cellulitis of upper back and sepsis HISTORY OF PRESENT ILLNESS: Patient presents to the emergency room with a 2 day history of developing cellulitis in area of papules in the upper back. He has been having fevers. He had a a temp of 102.7 with a white count 22.2 on admission. No prior history of MRSA. He was started on IV Cleocin in the emergency room. Infectious disease is following. Patient had CT scan of the chest cellulitis of the right neck and upper back with associated underlying myositis. No fluid collection. Patient instructed to the ICU last night he became septic, hypotensive and atrial fibrillation with rapid ventricular response. A team was called. Patient received IV fluid bolus also started on IV Cardizem and IV heparin. He is converted to sinus rhythm. Patient had a T-max of 101.4. Temperature this morning 100.7. WBC 20.3 hemoglobin 11.5 culture growing presumptive staph aureus. The papules on his back are draining pus. PHYSICAL EXAM: VITAL SIGNS: Reviewed. GENERAL: Well-developed in no acute distress. HEENT: No sclera icterus. Extraocular movements grossly intact. Moist buccal mucosa. Head is atraumatic, normocephalic. ABDOMEN: Soft. Nondistended. Nontender. NEUROLOGIC: Alert and oriented. Cranial nerves II through XII grossly intact. Skin : Patient's upper back there is a large area of cellulitis with erythema and warmth to touch. Tender with palpation. It is not fluctuant. It is indurated. A small area of pustules that have now opened and drained ASSESSMENT: 1. Cellulitis of the upper back with sepsis. Now spontaneously draining. Culture growing presumptive staph aureus. 2. Prior history of cellulitis to the upper back 3. Diabetes mellitus insulin-dependent, uncontrolled blood sugars PLAN: -No surgical intervention planned -Continue with IV antibiotics per ID -Continue local wound care Physician [employer]oles[employer] note has been reviewed by physician. Signing provider agrees with the documented findings, assessment, and plan of care. Objective - Vital Signs Vital signs: Vital Signs Temp 100.7 F H 01/01/20 08:00 Pulse 96 01/01/20 10:00 Resp 16 01/01/20 10:00 BP 124/90 01/01/20 10:00 Pulse Ox 95 01/01/20 10:00 Intake & Output 12/31/19 01/01/20 01/01/20 18:59 06:59 18:59 Intake Total 7227.230 5941.901 570 Output Total 950 1100 0 Balance 157.743 1318.901 570 Weight 128.367 kg 129.9 kg Intake: IV 1635 1610 570 Clindamycin 900 mg In 50 50 Dextrose 5% in Water 50 ml @ 50 mls/hr IVPB Q8HR [facility] Rx#:[id number] Diltiazem 125 mg In 5 Sodium Chloride 0.9% 100 ml @ Per Protocol IV .Q0M [facility] Rx#:[id number] Sodium Chloride 0.9% 1, 130 1560 520 000 ml @ 130 mls/hr IV . Q7H42M [facility] Rx#:[id number] Sodium Chloride 0.9% 1, 1000 000 ml @ 999 mls/hr IV . Q1H1M ONE Rx#:[id number] Vancomycin 2,000 mg In 500 Sodium Chloride 0.9% 500 ml 500 ml @ 167 mls/hr IVPB Q12H [facility] Rx#: [id number] Intake, IV Titration 3.667 480.901 Amount Diltiazem 125 mg In 3.667 91.167 Sodium Chloride 0.9% 100 ml @ Per Protocol IV .Q0M [facility] Rx#:[id number] Heparin Sod,Pork in 0.45% 139.734 NaCl 25,000 unit In 0.45 % NaCl 1 250ml.bag @ 7.79 UNITS/KG/HR 10 mls/hr IV .Q24H [facility] Rx#:[id number] Sodium Chloride 0.9% 1, 250 000 ml @ 100 mls/hr IV . Q10H [facility] Rx#:[id number] Oral 720 Output: Urine 950 1100 0 Other: Voiding Method Toilet Toilet Urinal Urinal # Voids 0 0 # Bowel Movements 0 - Labs CBC & Chem 7: 01/01/20 04:17 01/01/20 04:17 Labs: Abnormal Lab Results - Last 24 Hours (Table) 12/31/19 12/31/19 12/31/19 Range/Units 11:24 15:59 16:13 WBC (3.8-10.6) k/uL RBC (4.30-5.90) m/uL Hgb (13.0-17.5) gm/dL Hct (39.0-53.0) % Neutrophils # (1.3-7.7) k/uL ABG pCO2 (35-45) mmHg ABG pO2 (83-108) mmHg Sodium (137-145) mmol/L Glucose (74-99) mg/dL POC Glucose (mg/dL) 208 H 70 L 101 H (75-99) mg/dL Calcium (8.4-10.2) mg/dL 12/31/19 12/31/19 12/31/19 Range/Units 16:25 17:15 20:25 WBC 21.1 H (3.8-10.6) k/uL RBC (4.30-5.90) m/uL Hgb (13.0-17.5) gm/dL Hct (39.0-53.0) % Neutrophils # 18.4 H (1.3-7.7) k/uL ABG pCO2 33 L (35-45) mmHg ABG pO2 75 L (83-108) mmHg Sodium (137-145) mmol/L Glucose (74-99) mg/dL POC Glucose (mg/dL) 216 H (75-99) mg/dL Calcium (8.4-10.2) mg/dL 12/31/19 01/01/20 01/01/20 Range/Units 21:39 04:17 04:17 WBC 20.3 H (3.8-10.6) k/uL RBC 4.00 L (4.30-5.90) m/uL Hgb 11.5 L (13.0-17.5) gm/dL Hct 36.1 L (39.0-53.0) % Neutrophils # (1.3-7.7) k/uL ABG pCO2 (35-45) mmHg ABG pO2 (83-108) mmHg Sodium 131 L (137-145) mmol/L Glucose 212 H (74-99) mg/dL POC Glucose (mg/dL) 197 H (75-99) mg/dL Calcium 7.4 L (8.4-10.2) mg/dL 01/01/20 01/01/20 Range/Units 07:13 08:10 WBC (3.8-10.6) k/uL RBC (4.30-5.90) m/uL Hgb (13.0-17.5) gm/dL Hct (39.0-53.0) % Neutrophils # (1.3-7.7) k/uL ABG pCO2 (35-45) mmHg ABG pO2 (83-108) mmHg Sodium (137-145) mmol/L Glucose (74-99) mg/dL POC Glucose (mg/dL) 192 H 261 H (75-99) mg/dL Calcium (8.4-10.2) mg/dL Microbiology - Last 24 Hours (Table) 12/29/19 23:22 Blood Culture - Preliminary Blood No Growth after 48 hours 12/30/19 14:52 Gram Stain - Preliminary Back Wound Culture - Preliminary Presumptive Staph aureus
--- NOTE | 2020-01-01 11:10 | P.PN ---
Subjective Patient is admitted with sepsis secondary to abscess in the upper back. He is to have infected sebaceous cyst which is actively draining at this time there are areas of pus pockets which are draining at this time. Wound cultures were obtained which is showing staph aureus. Patient will be started on vancomycin as patient is tachycardic now it appears to be severely septic will obtain a lactic acid level along with ABG. Patient is tachycardic apparently he was tachycardic in 200s heart rate presently around 150 obtaining an EKG to check th e rhythm. Unfortunately there are no beds available in ICU stepdown unit. She was given a bolus of IV fluids will give 1 more liter bolus at this time. Patient is presently on 4 L of oxygen patient was on ceftezole and will will be started on vancomycin and continue with clindamycin. Patient is hyponatremic hyponatremia improved at this time. Patient that diabetes is uncontrolled presently blood sugars are bit better compared to yesterday. Patient can use to be febrile. 01/01/2020 Patient was found to be in atrial fibrillation with heart rates going up to around 150 patient was given a dose of Cardizem subsequently converted to sinus rhythm and sinus tachycardia, went into A. fib again. Patient is a 90 correlation with IV heparin is presently on Cardizem blood pressure is doing charisma rly well chest x-ray did not show any pulmonary edema. Patient can use to have highly elevated white blood count with significant drainage from the abscess in the back. Wound cultures are still pending showing staph aureus presumptive since today's are pending. Echocardiogram is pending Constitutional: Does have fever. Cardio vascular: denied any chest pain, palpitations Gastrointestinal denied any nausea vomiting Pulmonary: Denied any shortness of breath cough Neurologic denied any new focal deficits All inpatient medications were reviewed and appropriate changes in these medications as dictated in the interval history and assessment and plan. Objective - Vital Signs Vital signs: Vital Signs Temp 100.7 F H 01/01/20 08:00 Pulse 96 01/01/20 10:00 Resp 16 01/01/20 10:00 BP 124/90 01/01/20 10:00 Pulse Ox 95 01/01/20 10:00 Intake & Output 12/31/19 01/01/20 01/01/20 18:59 06:59 18:59 Intake Total 1981.480 9195.901 570 Output Total 950 1100 0 Balance 992.349 4332.901 570 Weight 128.367 kg 129.9 kg Intake: IV 1635 1610 570 Clindamycin 900 mg In 50 50 Dextrose 5% in Water 50 ml @ 50 mls/hr IVPB Q8HR [facility] Rx#:[id number] Diltiazem 125 mg In 5 Sodium Chloride 0.9% 100 ml @ Per Protocol IV .Q0M [facility] Rx#:[id number] Sodium Chloride 0.9% 1, 130 1560 520 000 ml @ 130 mls/hr IV . Q7H42M [facility] Rx#:[id number] Sodium Chloride 0.9% 1, 1000 000 ml @ 999 mls/hr IV . Q1H1M [facility] Rx#:[id number] Vancomycin 2,000 mg In 500 Sodium Chloride 0.9% 500 ml 500 ml @ 167 mls/hr IVPB Q12H [facility] Rx#: [id number] Intake, IV Titration 3.667 480.901 Amount Diltiazem 125 mg In 3.667 91.167 Sodium Chloride 0.9% 100 ml @ Per Protocol IV .Q0M [facility] Rx#:[id number] Heparin Sod,Pork in 0.45% 139.734 NaCl 25,000 unit In 0.45 % NaCl 1 250ml.bag @ 7.79 UNITS/KG/HR 10 mls/hr IV .Q24H [facility] Rx#:[id number] Sodium Chloride 0.9% 1, 250 000 ml @ 100 mls/hr IV . Q10H [facility] Rx#:[id number] Oral 720 Output: Urine 950 1100 0 Other: Voiding Method Toilet Toilet Urinal Urinal # Voids 0 0 # Bowel Movements 0 - Exam PHYSICAL EXAMINATION: GENERAL: The patient is alert and oriented x3, not in any acute distress. Obese HEENT: Pupils are round and equally reacting to light. EOMI. No scleral icterus. No conjunctival pallor. Normocephalic, atraumatic. No pharyngeal erythema. No thyromegaly. CARDIOVASCULAR: S1 and S2 present. No murmurs, rubs, or gallops. Tachycardic appears to be sinus tachycardia PULMONARY: Chest is clear to auscultation, no wheezing or crackles. ABDOMEN: Soft, nontender, nondistended, normoactive bowel sounds. No palpable organomegaly. MUSCULOSKELETAL: No joint swelling or deformity. EXTREMITIES: No cyanosis, clubbing, or pedal edema. NEUROLOGICAL: Gross neurological examination did not reveal any focal deficits. SKIN: Patient has extensive cellulitis with induration on the back upper back just below the neck area predominantly in the right side extending beyond the midline with local is of temperature. And has areas of pus pocket which are actively draining appears to have infected sebaceous cyst. - Labs CBC & Chem 7: 01/01/20 04:17 01/01/20 04:17 Labs: Abnormal Lab Results - Last 24 Hours (Table) 12/31/19 12/31/19 12/31/19 Range/Units 11:24 15:59 16:13 WBC (3.8-10.6) k/uL RBC (4.30-5.90) m/uL Hgb (13.0-17.5) gm/dL Hct (39.0-53.0) % Neutrophils # (1.3-7.7) k/uL ABG pCO2 (35-45) mmHg ABG pO2 (83-108) mmHg Sodium (137-145) mmol/L Glucose (74-99) mg/dL POC Glucose (mg/dL) 208 H 70 L 101 H (75-99) mg/dL Calcium (8.4-10.2) mg/dL 12/31/19 12/31/19 12/31/19 Range/Units 16:25 17:15 20:25 WBC 21.1 H (3.8-10.6) k/uL RBC (4.30-5.90) m/uL Hgb (13.0-17.5) gm/dL Hct (39.0-53.0) % Neutrophils # 18.4 H (1.3-7.7) k/uL ABG pCO2 33 L (35-45) mmHg ABG pO2 75 L (83-108) mmHg Sodium (137-145) mmol/L Glucose (74-99) mg/dL POC Glucose (mg/dL) 216 H (75-99) mg/dL Calcium (8.4-10.2) mg/dL 12/31/19 01/01/20 01/01/20 Range/Units 21:39 04:17 04:17 WBC 20.3 H (3.8-10.6) k/uL RBC 4.00 L (4.30-5.90) m/uL Hgb 11.5 L (13.0-17.5) gm/dL Hct 36.1 L (39.0-53.0) % Neutrophils # (1.3-7.7) k/uL ABG pCO2 (35-45) mmHg ABG pO2 (83-108) mmHg Sodium 131 L (137-145) mmol/L Glucose 212 H (74-99) mg/dL POC Glucose (mg/dL) 197 H (75-99) mg/dL Calcium 7.4 L (8.4-10.2) mg/dL 01/01/20 01/01/20 Range/Units 07:13 08:10 WBC (3.8-10.6) k/uL RBC (4.30-5.90) m/uL Hgb (13.0-17.5) gm/dL Hct (39.0-53.0) % Neutrophils # (1.3-7.7) k/uL ABG pCO2 (35-45) mmHg ABG pO2 (83-108) mmHg Sodium (137-145) mmol/L Glucose (74-99) mg/dL POC Glucose (mg/dL) 192 H 261 H (75-99) mg/dL Calcium (8.4-10.2) mg/dL Microbiology - Last 24 Hours (Table) 12/29/19 23:22 Blood Culture - Preliminary Blood No Growth after 48 hours 12/30/19 14:52 Gram Stain - Preliminary Back Wound Culture - Preliminary Presumptive Staph aureus Assessment and Plan Plan: -Sepsis and cellulitis with induration and possible early abscess or infectious sebaceous cyst of the right upper back. , Continue the IV fluids and patient has staph aureus from the wound cultures patient is presently on vancomycin and clindamycin may end up needing incision and drainage. -New onset atrial fibrillation frustrated by infection and sepsis echocardiogram is being obtained and patient is presently on Cardizem. -Acute hypoxic respiratory failure: Secondary to possibly sepsis patient is presently on 4 L proximal after a chest x-ray. -Hyponatremia: Pseudohyponatremia along with hypovolemic hyponatremia, continue with IV fluids -Type 2 diabetes mellitus uncontrolled better controlled compared to yesterday will continue to monitor on present regimen -Hypertension: Patient is severely septic and hypotensive because of which will hold off on antidepressant medications. -Sleep apnea uses CPAP machine at home. -DVT prophylaxis with Lovenox.
[2020-01-01 11:39] LABS: Glucose,Whole Blood 109 mg/dL (75-99)
[2020-01-01] MEDS: HEPARIN SOD,PORK IN 0.45% NACL 25,000 UNIT in 0.45% NACL 1 250ML.BAG IV SCH (11:56)
[2020-01-01 12:08] LABS: Glucose,Whole Blood 98 mg/dL (75-99)
[2020-01-01] MEDS: METOPROLOL TARTRATE 25 MG TAB PO SCH ×2 (13:25→21:23)
--- NOTE | 2020-01-01 13:38 | P.CRDCN ---
History of Present Illness Consult date: 01/01/20 History of present illness: CHIEF COMPLAINT: A. fib with RVR HISTORY OF PRESENT ILLNESS: This is a 54 -year old male with a past medical history significant for hypertension, hyperlipidemia, diabetes mellitus, CVA, and sleep apnea. Patient follows in the office with Dr. Hester. We have been asked to see the patient in consultation for A. fib with RVR. Patient is admitted to the hospital with sepsis secondary to a large abscess on the patient's upper back. He is currently receiving IV antibiotics. He has been evaluated by surgery who is her recommending conservative management. The patient was found to be in A. fib with RVR yesterday. He was started on IV heparin and IV Cardizem. This morning the patient is in sinus rhythm at the time of examination but per nursing he does split between A. fib and sinus r hythm. DIAGNOSTICS: Telemetry currently reveals sinus rhythm. Slightly tachycardic. Heart rate 104 Chest xray right perihilar infiltrate Laboratory data: WBC 20.3. Hemoglobin 11.5. Platelet count 301. Sodium 131. Potassium 4.1. BUN 11. Creatinine 0.68. Lactic acid 1.3. Current home cardiac medications include Zocor 40 mg daily, Vasotec 10 mg twice a day, Plavix 75 mg daily REVIEW OF SYSTEMS: At the time of my exam: CONSTITUTIONAL: Denies fever or chills. HEENT: Denies blurred vision, vision changes, or eye pain. Denies hemoptysis CARDIOVASCULAR: Denies chest pain, orthopnea, PND or palpitations RESPIRATORY: No shortness of breath. GASTROINTESTINAL: Denies abdominal pain. Denies nausea or vomiting. HEMATOLOGIC: Denies bleeding disorders. GENITOURINARY: Denies any blood in urine. SKIN: Denies pruitis. Denies rash. PHYSICAL EXAM: VITAL SIGNS: Reviewed. GENERAL: Well-developed in no acute distress. HEENT: Head is normocephalic. Pupils are equal, round. Sclerae anicteric. Mucous membranes of the mouth are moist. Neck supple. No JVD or thyromegaly LUNGS: Respirations even and unlabored. Lungs diminished. HEART: Regular rate and rhythm. S1 and S2 heard. ABDOMEN: Soft. Nondistended. Nontender. EXTREMITIES: Normal range of motion. No clubbing or cyanosis. Peripheral pulses intact. No lower extremity edema NEUROLOGIC: Awake and alert. Oriented x 3. SKIN: Patient with large draining wound to mid upper back. ASSESSMENT: Sepsis secondary to abscess of right upper back New-onset atrial fibrillation with RVR Hypertension Hyperlipidemia Diabetes mellitus, type II Sleep apnea History of CVA, maintained on Plavix PLAN: Obtain 2-D echo to assess cardiac structure and function Discontinue IV Cardizem Begin metoprolol 25 mg twice a day Case discussed with Dr. Boyer who states he has no plans for surgical intervention. Dr. Delaney recommends Xarelto 15mg. Will DC heparin and begin Xarelto Further recommendations pending patient's course Nurse practitioner note has been reviewed by physician. Signing provider agrees with the documented findings, assessment, and plan of care. Past Medical History Past Medical History: CVA/TIA, Diabetes Mellitus, Hyperlipidemia, Hypertension, Sleep Apnea/CPAP/BIPAP Additional Past Medical History / Comment(s): diverticulitis, neuropathy, CVA x 4 last was october of 2013, BLE and slight right sided weakness after CVA, pt uses cane to ambulate at home, CHRONIC BACK PAIN STATED HAS HAD SOME INJECTIONS LATELY.HEMORROIDS AND STATED HAD A BLOODY STOOL DAY OF ADMIT 10-20-15 History of Any Multi-Drug Resistant Organisms: None Reported Past Surgical History: Orthopedic Surgery Additional Past Surgical History / Comment(s): rt great toe, left shoulder s urgery, colonoscopies, clean cardiac cath 05/2014 ,SPINAL INJKECTIONS. Past Anesthesia/Blood Transfusion Reactions: No Reported Reaction Additional Past Anesthesia/Blood Transfusion Reaction / Comment(s): CLAUTERPHOBIA Past Psychological History: Depression Past Alcohol Use History: Rare Past Drug Use History: None Reported - Past Family History Mother Family Medical History: Diabetes Mellitus Father Family Medical History: Cancer Medications and Allergies Home Medications Medication Instructions Recorded Confirmed Type Enalapril [Vasotec] 10 mg PO BID 10/05/13 12/30/19 History Multivitamins, Thera [Multivitamin 1 tab PO DAILY 10/05/13 12/30/19 History (formulary)] Clopidogrel Bisulfate [Plavix] 75 mg PO DAILY #30 tab 05/25/14 12/30/19 Rx Insulin Glargine [Lantus] 75 unit SQ HS 02/01/15 12/30/19 History Nitroglycerin Sl Tabs [Nitrostat] 0.4 mg SUBLINGUAL Q5M PRN 02/01/15 12/30/19 History Gabapentin 600 mg PO TID 10/20/15 12/30/19 History INSULIN ASPART (NovoLOG) [NovoLOG] 45 units SQ AC-TID 10/20/15 12/30/19 History metFORMIN HCL 1,000 mg PO BID 10/20/15 12/30/19 History Exenatide Microspheres [Bydureon 2 mg SQ MO 12/30/19 12/30/19 History Pen] Simvastatin [Zocor] 40 mg PO HS 12/30/19 12/30/19 History Apixaban [Eliquis] 5 mg PO BID #60 tab 01/01/20 Rx Allergies Allergy/AdvReac Type Severity Reaction Status Date / Time codeine Allergy Severe Anaphylaxis Verified 12/30/19 08:56 meloxicam Allergy Swelling Verified 12/30/19 08:56 Physical Exam Vitals: Vital Signs Temp Pulse Pulse Pulse Resp BP BP 01/01/20 13:00 98 22 109/66 01/01/20 12:00 97.8 F 96 14 167/67 01/01/20 11:00 96 16 117/67 01/01/20 10:00 96 16 124/90 01/01/20 09:00 106 H 14 122/68 01/01/20 08:00 100.7 F H 111 H 16 136/69 01/01/20 07:00 107 H 16 118/70 01/01/20 06:00 113 H 14 113/48 01/01/20 05:00 107 H 19 113/65 01/01/20 04:00 100.3 F H 109 H 18 123/85 01/01/20 03:00 108 H 20 113/72 01/01/20 02:00 107 H 18 107/67 01/01/20 01:00 113 H 15 115/53 01/01/20 00:00 98.2 F 112 H 20 111/65 12/31/19 23:00 116 H 20 130/75 12/31/19 22:00 113 H 14 114/85 12/31/19 21:00 120 H 16 112/72 12/31/19 20:00 99.1 F 124 H 16 115/61 12/31/19 19:54 120 H 15 12/31/19 19:00 98.0 F 130 H 24 103/62 12/31/19 18:08 99.4 F 140 H 26 H 117/82 12/31/19 17:41 100.6 F H 144 H 31 H 126/78 12/31/19 17:24 101.4 F H 220 H 28 H 139/74 12/31/19 16:30 99 F 200 H 12/31/19 16:00 100.7 F H 116/92 12/31/19 15:40 200 H 26 H 146/61 12/31/19 14:00 98.1 F 191 H 107/71 Pulse Ox 01/01/20 13:00 96 01/01/20 12:00 96 01/01/20 11:00 95 01/01/20 10:00 95 01/01/20 09:00 96 01/01/20 08:00 94 L 01/01/20 07:00 95 01/01/20 06:00 95 01/01/20 05:00 96 01/01/20 04:00 96 01/01/20 03:00 95 01/01/20 02:00 97 01/01/20 01:00 98 01/01/20 00:00 96 12/31/19 23:00 97 12/31/19 22:00 97 12/31/19 21:00 96 12/31/19 20:00 97 12/31/19 19:54 12/31/19 19:00 94 L 12/31/19 18:08 97 12/31/19 17:41 97 12/31/19 17:24 98 12/31/19 16:30 12/31/19 16:00 12/31/19 15:40 92 L 12/31/19 14:00 92 L Intake and Output 12/31/19 01/01/20 01/01/20 22:59 06:59 14:59 Intake Total 2378.667 2070.901 1071.151 Output Total 350 1100 500 Balance 2028.667 970.901 571.151 Intake: IV 2155 1090 960 Clindamycin 900 mg In 50 50 Dextrose 5% in Water 50 ml @ 50 mls/hr IVPB Q8HR [facility] Rx#:[id number] Diltiazem 125 mg In 5 Sodium Chloride 0.9% 100 ml @ Per Protocol IV .Q0M [facility] Rx#:[id number] Sodium Chloride 0.9% 1, 650 1040 910 000 ml @ 130 mls/hr IV . Q7H42M [facility] Rx#:[id number] Sodium Chloride 0.9% 1, 1000 000 ml @ 999 mls/hr IV . Q1H1M [facility] Rx#:[id number] Vancomycin 2,000 mg In 500 Sodium Chloride 0.9% 500 ml 500 ml @ 167 mls/hr IVPB Q12H [facility] Rx#: [id number] Intake, IV Titration 3.667 480.901 111.151 Amount Diltiazem 125 mg In 3.667 91.167 Sodium Chloride 0.9% 100 ml @ Per Protocol IV .Q0M [facility] Rx#:[id number] Heparin Sod,Pork in 0.45% 139.734 111.151 NaCl 25,000 unit In 0.45 % NaCl 1 250ml.bag @ 7.79 UNITS/KG/HR 10 mls/hr IV .Q24H [facility] Rx#:[id number] Sodium Chloride 0.9% 1, 250 000 ml @ 100 mls/hr IV . Q10H [facility] Rx#:[id number] Oral 220 500 Output: Urine 350 1100 500 Other: Voiding Method Toilet Toilet Urinal Urinal # Voids 1 0 0 # Bowel Movements 0 Weight 129.9 kg Results 01/01/20 04:17 01/01/20 11:15 Coagulation 12/31/19 12/31/19 01/01/20 Range/Units 17:06 23:01 04:17 PT 10.0 (9.0-12.0) sec APTT 23.9 26.3 28.9 (22.0-30.0) sec 01/01/20 Range/Units 11:15 PT (9.0-12.0) sec APTT 31.8 H (22.0-30.0) sec CBC 12/31/19 01/01/20 Range/Units 17:15 04:17 WBC 21.1 H 20.3 H (3.8-10.6) k/uL RBC 4.49 4.00 L (4.30-5.90) m/uL Hgb 13.1 11.5 L (13.0-17.5) gm/dL Hct 40.9 36.1 L (39.0-53.0) % Plt Count 311 301 (150-450) k/uL Comprehensive Metabolic Panel 01/01/20 01/01/20 Range/Units 04:17 11:15 Sodium 131 L (137-145) mmol/L Potassium 3.9 4.1 (3.5-5.1) mmol/L Chloride 104 (98-107) mmol/L Carbon Dioxide 23 (22-30) mmol/L BUN 11 (9-20) mg/dL Creatinine 0.68 (0.66-1.25) mg/dL Glucose 212 H (74-99) mg/dL Calcium 7.4 L (8.4-10.2) mg/dL Current Medications Generic Name Dose Route Start Last Admin Trade Name Freq PRN Reason Stop Dose Admin Acetaminophen 650 mg 12/30/19 02:08 01/01/20 08:33 Acetaminophen Tab 325 Mg Tab PO 650 mg Q6HR PRN Administration Mild Pain or Fever > 100.5 Atorvastatin Calcium 20 mg 12/30/19 21:00 12/31/19 21:38 Atorvastatin 20 Mg Tab PO 20 mg HS [facility] Administration Clopidogrel Bisulfate 75 mg 12/30/19 11:00 01/01/20 08:21 Clopidogrel 75 Mg Tab PO 75 mg DAILY [facility] Administration Famotidine 20 mg 12/30/19 21:00 01/01/20 08:21 Famotidine 20 Mg Tab PO 20 mg BID [facility] Administration Gabapentin 600 mg 12/30/19 16:00 01/01/20 08:20 Gabapentin 300 Mg Cap PO 600 mg TID [facility] Administration Guaifenesin 200 mg 12/30/19 05:37 12/30/19 05:43 Guaifenesin Syrup 100mg/5ml 200 Mg/10 Ml Cup PO 200 mg Q6H PRN Administration Cough Heparin Sodium (Porcine) 0 unit 12/31/19 17:15 01/01/20 12:26 Heparin Sodium,Porcine 5,000 Unit/Ml 1 Ml Vial IV 4,000 unit PER PROTOCOL PRN Administration Low PTT Protocol Clindamycin Phosphate 900 mg/ 56 mls @ 50 mls/hr 12/30/19 16:00 01/01/20 08:21 Dextrose/Water IVPB 50 mls/hr Q8HR [facility] Administration Vancomycin HCl 2,000 mg/ 500 mls @ 167 mls/hr 12/31/19 17:00 01/01/20 04:44 Sodium Chloride IVPB 167 mls/hr Q12H [facility] Administration Sodium Chloride 1,000 mls @ 130 mls/hr 12/31/19 16:30 01/01/20 08:22 Saline 0.9% IV 130 mls/hr .Q7H42M [facility] Administration Heparin Sodium/Sodium Chloride 250 mls @ 10 mls/hr 12/31/19 17:15 01/01/20 11:59 25,000 unit/ Sodium Chloride IV 16.79 units/kg/hr .Q24H [facility] 21.553 mls/hr Titration Protocol 7.79 UNITS/KG/HR Insulin Aspart 0 unit 12/30/19 07:30 01/01/20 12:07 Insulin Aspart (Novolog) 100 Unit/Ml Vial SQ Not Given ACHS [facility] Protocol Insulin Aspart 45 unit 12/30/19 12:30 01/01/20 12:19 Insulin Aspart (Novolog) 100 Unit/Ml Vial SQ Not Given AC-TID [facility] Insulin Detemir 90 unit 12/30/19 21:00 12/31/19 21:40 Insulin Detemir (Levemir) 100 Unit/Ml Syr SQ 90 unit HS [facility] Administration Metoprolol Tartrate 25 mg 01/01/20 13:15 01/01/20 13:25 Metoprolol Tartrate 25 Mg Tab PO 25 mg BID [facility] Administration Miscellaneous Information 1 each 01/01/20 05:34 Potassium Replacement Protocol 1 Each Misc MISCELLANE DAILY PRN Per Protocol Protocol Multivitamins 1 each 12/30/19 11:00 01/01/20 08:21 Multivitamins, Thera 1 Each Tab PO 1 each DAILY [facility] Administration Naloxone HCl 0.2 mg 12/30/19 02:08 Naloxone 0.4 Mg/Ml 1 Ml Vial IV Q2M PRN Opioid Reversal Nitroglycerin 0.4 mg 12/30/19 09:51 Nitroglycerin Sl Tabs 0.4 Mg Tab SUBLINGUAL Q5M PRN Pain Ondansetron HCl 4 mg 12/30/19 02:08 Ondansetron 4 Mg/2 Ml Vial IVP Q8HR PRN Nausea And Vomiting Tramadol HCl 50 mg 01/01/20 09:07 Tramadol 50 Mg Tab PO QID PRN Pain/Discomfort Intake and Output 12/31/19 01/01/20 01/01/20 22:59 06:59 14:59 Intake Total 2378.667 2070.901 1071.151 Output Total 350 1100 500 Balance 2028.667 970.901 571.151 Intake: IV 2155 1090 960 Clindamycin 900 mg In 50 50 Dextrose 5% in Water 50 ml @ 50 mls/hr IVPB Q8HR [facility] Rx#:[id number] Diltiazem 125 mg In 5 Sodium Chloride 0.9% 100 ml @ Per Protocol IV .Q0M [facility] Rx#:[id number] Sodium Chloride 0.9% 1, 650 1040 910 000 ml @ 130 mls/hr IV . Q7H42M [facility] Rx#:[id number] Sodium Chloride 0.9% 1, 1000 000 ml @ 999 mls/hr IV . Q1H1M [facility] Rx#:[id number] Vancomycin 2,000 mg In 500 Sodium Chloride 0.9% 500 ml 500 ml @ 167 mls/hr IVPB Q12H [facility] Rx#: [id number] Intake, IV Titration 3.667 480.901 111.151 Amount Diltiazem 125 mg In 3.667 91.167 Sodium Chloride 0.9% 100 ml @ Per Protocol IV .Q0M [facility] Rx#:[id number] Heparin Sod,Pork in 0.45% 139.734 111.151 NaCl 25,000 unit In 0.45 % NaCl 1 250ml.bag @ 7.79 UNITS/KG/HR 10 mls/hr IV .Q24H [facility] Rx#:[id number] Sodium Chloride 0.9% 1, 250 000 ml @ 100 mls/hr IV . Q10H [facility] Rx#:[id number] Oral 220 500 Output: Urine 350 1100 500 Other: Voiding Method Toilet Toilet Urinal Urinal # Voids 1 0 0 # Bowel Movements 0 Weight 129.9 kg 01/01/20 04:17 01/01/20 11:15
[2020-01-01 17:15] LABS: Glucose,Whole Blood 134 mg/dL (75-99)
[2020-01-01] MEDS: RIVAROXABAN 15 MG TAB PO SCH (17:40)
--- NOTE | 2020-01-01 19:40 | ECHOF ---
Referral Reason:Violeta Hammond MEASUREMENTS -------- HEIGHT: 167.6 cm WEIGHT: 129.7 kg BP: IVSd: 1.5 cm (0.6 - 1.1) LVIDd: 4.8 cm (3.9 - 5.3) LVPWd: 1.3 cm (0.6 - 1.1) IVSs: 1.6 cm LVIDs: 3.0 cm LVPWs: 1.7 cm RVIDd: 2.6 cm (< 3.3) Ao Diam: 3.1 cm (2.0 - 3.7) LA Diam: 2.9 cm (2.7 - 3.8) AV Cusp: 1.5 cm (1.5 - 2.6) EPSS: 0.7 cm MV E Tye: 1.13 m/s MV DecT: 136 ms MV A Tye: 0.70 m/s MV E/A Ratio: 1.60 RAP: 5.00 mmHg RVSP: 13.45 mmHg MV EF SLOPE: 228.89 mm/s (70 - 150) MV EXCURSION: 26.18 mm (> 18.000) FINDINGS -------- This was a technically difficult study with suboptimal views. The left ventricular size is normal. There is moderate concentric left ventricular hypertrophy. O verall left ventricular systolic function is normal with, an EF between 55 - 60 %. The right ventricle is normal in size. The left atrial size is normal. The right atrial size is normal. 5.0mg of Lumason was utilized for enhancement of images The aortic valve was not well visualized. The mitral valve was not well visualized. There is trace mitral regurgitation. The tricuspid valve was not well visualized. Trace tricuspid regurgitation present. Right ventric ular systolic pressure is normal at < 35 mmHg. The pulmonic valve was not well visualized. The aortic root size is normal. IVC Not well visulized. There is no pericardial effusion. CONCLUSIONS -------- 1. The left ventricular size is normal. 2. There is moderate concentric left ventricular hypertrophy. 3. Overall left ventricular systolic function is normal with, an EF between 55 - 60 %. 4. There is trace mitral regurgitation. 5. Trace tricuspid regurgitation present. 6. There is no pericardial effusion. CHANGE HOUSE ATTENDANT: Aishwarya Bonilla RDCS
[2020-01-01 20:40] LABS: Glucose,Whole Blood 217 mg/dL (75-99)
[2020-01-01] MEDS: INSULIN DETEMIR (LEVEMIR) 100 UNIT/ML SYR SQ SCH (21:21)
[2020-01-01] MEDS: ATORVASTATIN 20 MG TAB PO SCH (21:22)
--- NOTE | 2020-01-01 22:11 | PN ---
PROGRESS NOTE DATE OF SERVICE: 01/01/2020 REASON FOR FOLLOW UP: Upper back infected carbuncle MSSA. INTERVAL HISTORY: Patient is currently afebrile. The patient is breathing comfortably. Patient denies having any chest pain. No shortness of breath or cough, upper back area no worsening pain or swelling. Still has some drainage. PHYSICAL EXAMINATION: Blood pressure is 129/76, pulse of 102, temperature 98. He is 97% on 2 L nasal cannula. General description is a middle-aged male up in the bed in no distress. Respiratory system: Unlabored breathing, clear to auscultation. HEART: S1, S2. Regular rate and rhythm. ABDOMEN: Soft. No tenderness. Lower back area currently dressed. No drainage on the dressing. LABS: Wound culture finalized with MSSA. Blood culture has been negative. DIAGNOSTIC IMPRESSION AND PLAN: Patient with back abscess, cellulitis with concern for possible infected sebaceous cyst. The patient is currently covered with clindamycin. Vancomycin will be discontinued. We will add cefazolin local care to continue as ordered. May benefit from further surgical drainage. Continue supportive care. MMODL / IJN: [id number] /
[2020-01-01] MEDS: traMADol 50 MG TAB PO PRN (22:20)
[2020-01-02] MEDS: CLINDAMYCIN 900 MG in DEXTROSE 5% IN WATER 50 ML IVPB SCH ×6 (01:02→17:39)
[2020-01-02] MEDS: SODIUM CHLORIDE 0.9% 1,000 ML IV SCH ×4 (01:02→23:24)
[2020-01-02 04:46] LABS: HCT 36.6 % (39.0-53.0); MCH 29.4 pg (25.0-35.0); MCHC 32.8 g/dL (31.0-37.0); MCV 89.7 fL (80.0-100.0); Mean Platelet Volume 8.3; Platelet Count 350 k/uL (150-450); RBC 4.08 m/uL (4.30-5.90); RDW 12.7 % (11.5-15.5); WBC 14.8 k/uL (3.8-10.6)
[2020-01-02 04:59] LABS: African American GFR (CKD) >90 (>60 ml/min/1.73 sqM); Anion Gap 5 mmol/L; Blood Urea Nitrogen 8 mg/dL (9-20); Calcium 7.5 mg/dL (8.4-10.2); Carbon Dioxide 27 mmol/L (22-30); Chloride 105 mmol/L (98-107); Glucose 63 mg/dL (74-99); Non-African American GFR(CKD) >90 (>60 ml/min/1.73 sqM); Potassium 3.8 mmol/L (3.5-5.1); Sodium 137 mmol/L (137-145)
[2020-01-02] MEDS ORDERED: DEXTROSE 50% SYRINGE 50 ML IVP ONE (05:29)
[2020-01-02 05:38] LABS: Glucose,Whole Blood 70 mg/dL (75-99)
[2020-01-02 06:00] LABS: Glucose,Whole Blood 103 mg/dL (75-99)
[2020-01-02] MEDS ORDERED: POTASSIUM CHLORIDE ER 20 MEQ TAB.ER PO SCH (06:00)
[2020-01-02] MEDS: INSULIN ASPART (NovoLOG) 100 UNIT/ML VIAL SQ SCH ×5 (07:13→21:03)
[2020-01-02] MEDS: METOPROLOL TARTRATE 25 MG TAB PO SCH (07:57)
[2020-01-02] MEDS: MULTIVITAMINS, THERA 1 EACH TAB PO SCH (07:57)
[2020-01-02] MEDS: FAMOTIDINE 20 MG TAB PO SCH ×2 (07:57→21:03)
[2020-01-02] MEDS: GABAPENTIN 300 MG CAP PO SCH ×3 (07:57→21:03)
[2020-01-02] MEDS: CLOPIDOGREL 75 MG TAB PO SCH (07:58)
--- NOTE | 2020-01-02 10:44 | P.PN ---
Subjective Progress Note Date: 01/02/20 Principal diagnosis: Cellulitis and draining wound on the back This is a very pleasant 54-year-old gentleman who follows with Dr. Efren Daley as his primary care provider. He has a history of diabetes mellitus, hypertension, hyperlipidemia, CVA/TIA, obstructive sleep apnea on CPAP in the outpatient setting. He presented to the emergency room on 12/29/2019 with complaints of generalized fatigue weakness shortness of breath, nausea. He did develop a small bump on the right upper back that he felt was a bug bite of some sort. Prior to his arrival at [facility] open was draining copious amounts of purulent fluid. He's had fevers and aches and pains. Yesterday while on the [facility] medical floor the patient developed atrial fibrillation with rapid ventricular response. An A Team was called and patient with subsequent transferred here to the intensive care unit. He is on 4 L/m per nasal cannula and maintaining O2 saturations in the 90s. He has Cardizem drip at 10 mg per hour. Initiated on a heparin drip per weight base protocol. 0.9 normal saline at 130 ML's per hour. Wound culture showing presumptive MRSA. He is currently on Ancef, clindamycin, vancomycin. Chest x-ray reveals right perihilar infiltrate. He is seen today in consultation in the intensive care unit. He is currently sitting up in a chair at the bedside. Awake and alert in no acute distress. He is feeling a bit better today compared to yesterday. He is febrile with a temp of 101.7. Remains tachycardic in the 110s. White count 20.3. Hemoglobin 11.5. Sodium 131. Potassium 3.9. Creatinine 0.68. Kwon virus not detected. The patient is seen today 01/02/2020 in follow-up in the intensive care unit. He is currently sitting up at the bedside. Awake and alert in no acute distr ess. He did have some issues with altered mentation last evening requiring a sitter to be present. He is alert and oriented 3 today. He needs increased encouragement to utilize his home CPAP status at the bedside. Otherwise, he denies any worsening shortness of breath, cough or congestion. He is maintaining O2 saturations in the 90s on 2 L/m per nasal cannula. He has 0.9 normal saline at 130 ML's per hour. Cultures from the wound on his back are positive for staph aureus oxacillin sensitive. He remains on clindamycin and Ancef. White count 14.8. Hemoglobin 12.0. Sodium 137. Potassium 3.8. Creatinine 0.71. Objective - Vital Signs Vital signs: Vital Signs Temp 98.2 F 01/02/20 08:00 Pulse 109 H 01/02/20 09:00 Resp 23 01/02/20 09:00 BP 127/79 01/02/20 09:00 Pulse Ox 96 01/02/20 09:00 Intake & Output 01/01/20 01/02/20 01/02/20 18:59 06:59 18:59 Intake Total 2513.477 1730 440 Output Total 1100 1101 700 Balance 1413.477 629 -260 Weight 122.2 kg Intake: IV 2160 1580 440 Clindamycin 900 mg In 100 50 Dextrose 5% in Water 50 ml @ 50 mls/hr IVPB Q8HR [facility] Rx#:[id number] Sodium Chloride 0.9% 1, 1560 1430 390 000 ml @ 130 mls/hr IV . Q7H42M [facility] Rx#:[id number] Vancomycin 2,000 mg In 500 Sodium Chloride 0.9% 500 ml 500 ml @ 167 mls/hr IVPB Q12H [facility] Rx#: [id number] ceFAZolin 2 gm In Sodium 100 50 Chloride 0.9% 50 ml @ 100 mls/hr IVPB Q8HR [facility] Rx# :[id number] Intake, IV Titration 353.477 Amount Diltiazem 125 mg In 119.833 Sodium Chloride 0.9% 100 ml @ Per Protocol IV .Q0M [facility] Rx#:[id number] Heparin Sod,Pork in 0.45% 233.644 NaCl 25,000 unit In 0.45 % NaCl 1 250ml.bag @ 7.79 UNITS/KG/HR 10 mls/hr IV .Q24H [facility] Rx#:[id number] Oral 150 Output: Urine 1100 1100 700 Urine/Stool Mix 1 Other: Voiding Method Urinal Urinal Urinal # Voids 0 0 # Bowel Movements 1 - Exam GENERAL EXAM: Alert, obese, pleasant 54-year-old gentleman, on 2 L nasal cannula, comfortable in no apparent distress. HEAD: Normocephalic. EYES: Normal reaction of pupils, equal size. NOSE: Clear with pink turbinates. THROAT: Crowding of posterior pharynx No erythema or exudates. NECK: No masses, no JVD. CHEST: No chest wall deformity. LUNGS: Equal air entry with few scattered rhonchi, diminished. CVS: S1 and S2 normal with no audible murmur, regular rhythm. ABDOMEN: No hepatosplenomegaly, normal bowel sounds, no guarding or rigidity. SPINE: No scoliosis or deformity SKIN: Large area of the right upper back with edema, redness, warmth and open drainage. CENTRAL NERVOUS SYSTEM: No focal deficits, tone is normal in all 4 extremities. EXTREMITIES: There is no peripheral edema. No clubbing, no cyanosis. Periphera l pulses are intact. - Labs CBC & Chem 7: 01/02/20 04:21 01/02/20 04:21 Labs: Abnormal Lab Results - Last 24 Hours (Table) 01/01/20 01/01/20 01/01/20 Range/Units 11:15 11:35 17:12 WBC (3.8-10.6) k/uL RBC (4.30-5.90) m/uL Hgb (13.0-17.5) gm/dL Hct (39.0-53.0) % APTT 31.8 H (22.0-30.0) sec BUN (9-20) mg/dL Glucose (74-99) mg/dL POC Glucose (mg/dL) 109 H 134 H (75-99) mg/dL Calcium (8.4-10.2) mg/dL 01/01/20 01/02/20 01/02/20 Range/Units 20:39 04:21 04:21 WBC 14.8 H (3.8-10.6) k/uL RBC 4.08 L (4.30-5.90) m/uL Hgb 12.0 L (13.0-17.5) gm/dL Hct 36.6 L (39.0-53.0) % APTT (22.0-30.0) sec BUN 8 L (9-20) mg/dL Glucose 63 L (74-99) mg/dL POC Glucose (mg/dL) 217 H (75-99) mg/dL Calcium 7.5 L (8.4-10.2) mg/dL 01/02/20 01/02/20 Range/Units 05:26 05:58 WBC (3.8-10.6) k/uL RBC (4.30-5.90) m/uL Hgb (13.0-17.5) gm/dL Hct (39.0-53.0) % APTT (22.0-30.0) sec BUN (9-20) mg/dL Glucose (74-99) mg/dL POC Glucose (mg/dL) 70 L 103 H (75-99) mg/dL Calcium (8.4-10.2) mg/dL Microbiology - Last 24 Hours (Table) 12/29/19 23:22 Blood Culture - Preliminary Blood No Growth after 72 hours 12/30/19 14:52 Anaerobic Culture - Preliminary Back 12/31/19 12:08 Blood Culture - Preliminary Blood No Growth after 24 hours 12/30/19 14:52 Gram Stain - Final Back Wound Culture - Final Staphylococcus aureus Assessment and Plan Assessment: 1 Acute cellulitis with sepsis injury to the right upper back wound infection with MSSA, currently on Ancef and clindamycin 2 Leukocytosis secondary to above him a improving 3 Atrial fibrillation with rapid ventricular response, improved, anticoagulated with Xarelto 4 Acute on chronic hypoxic respiratory failure secondary to right perihilar infiltrate 5 History of obstructive sleep apnea and on CPAP in the outpatient setting 6 Diabetes mellitus 7 Hyperlipidemia 8 Hypertension 9 History of CVA/TIA Plan: The patient was seen and evaluated by Dr. Palemr He is cleared for transfer out of the ICU today to the regular medical floor with telemetry Continue with the current antibiotics for now Surgical services are consulted, no plans for intervention Titrate the FiO2 as tolerated We'll continue to follow and make further recommendations based on his clinical status I, the cosigning physician, performed a history & physical examination of the patient. Lungs sounds with scattered rhonchi. Maintaining good O2 saturations in the 90s on 2 liters per minute per nasal cannula. I discussed the assessment and plan of care with my nurse practitioner, Shelli Montemayor. I attest to the above note as dictated by her.
[2020-01-02 11:48] LABS: Glucose,Whole Blood 149 mg/dL (75-99)
--- NOTE | 2020-01-02 12:03 | P.PN ---
Subjective Progress Note Date: 01/02/20 Principal diagnosis: Paroxysmal atrial fibrillation This is a 54-year-old gentleman with multiple comorbid conditions including hypertension and dyslipidemia and diabetes and sleep apnea and also history of CVA was admitted to the hospital with sepsis secondary to abscess on the right upper back. We consulted to see him because of atrial fibrillation with RVR. The patient was seen this morning. He has been maintaining normal sinus mechanism with sinus tachycardia. Hemodynamically he is is stable. Because of.I'm going to increase the dose of metoprolol to 50 mg by mouth twice a day. He is on antiplatelet with Plavix for the CVA and we added yesterday oral anticoagulation for the atrial fibrillation with Xarelto after we confirmed that the patient is not going to have any surgical intervention regarding the abscess. He echocardiogram revealed preserved left ventricle systolic function without any significant valvular abnormalities. Objective - Vital Signs Vital signs: Vital Signs Temp 98.2 F 01/02/20 08:00 Pulse 109 H 01/02/20 09:00 Resp 23 01/02/20 09:00 BP 127/79 01/02/20 09:00 Pulse Ox 96 01/02/20 09:00 Intake & Output 01/01/20 01/02/20 01/02/20 18:59 06:59 18:59 Intake Total 2513.477 1730 440 Output Total 1100 1101 700 Balance 1413.477 629 -260 Weight 122.2 kg Intake: IV 2160 1580 440 Clindamycin 900 mg In 100 50 Dextrose 5% in Water 50 ml @ 50 mls/hr IVPB Q8HR [facility] Rx#:[id number] Sodium Chloride 0.9% 1, 1560 1430 390 000 ml @ 130 mls/hr IV . Q7H42M [facility] Rx#:[id number] Vancomycin 2,000 mg In 500 Sodium Chloride 0.9% 500 ml 500 ml @ 167 mls/hr IVPB Q12H [facility] Rx#: [id number] ceFAZolin 2 gm In Sodium 100 50 Chloride 0.9% 50 ml @ 100 mls/hr IVPB Q8HR [facility] Rx# :[id number] Intake, IV Titration 353.477 Amount Diltiazem 125 mg In 119.833 Sodium Chloride 0.9% 100 ml @ Per Protocol IV .Q0M [facility] Rx#:[id number] Heparin Sod,Pork in 0.45% 233.644 NaCl 25,000 unit In 0.45 % NaCl 1 250ml.bag @ 7.79 UNITS/KG/HR 10 mls/hr IV .Q24H [facility] Rx#:[id number] Oral 150 Output: Urine 1100 1100 700 Urine/Stool Mix 1 Other: Voiding Method Urinal Urinal Urinal # Voids 0 0 # Bowel Movements 1 - Constitutional General appearance: Present: no acute distress - Respiratory Respiratory: bilateral: CTA - Cardiovascular Rhythm: regular Heart sounds: normal: S1, S2 - Labs CBC & Chem 7: 01/02/20 04:21 01/02/20 04:21 Labs: Abnormal Lab Results - Last 24 Hours (Table) 01/01/20 01/01/20 01/02/20 Range/Units 17:12 20:39 04:21 WBC 14.8 H (3.8-10.6) k/uL RBC 4.08 L (4.30-5.90) m/uL Hgb 12.0 L (13.0-17.5) gm/dL Hct 36.6 L (39.0-53.0) % BUN (9-20) mg/dL Glucose (74-99) mg/dL POC Glucose (mg/dL) 134 H 217 H (75-99) mg/dL Calcium (8.4-10.2) mg/dL 01/02/20 01/02/20 01/02/20 Range/Units 04:21 05:26 05:58 WBC (3.8-10.6) k/uL RBC (4.30-5.90) m/uL Hgb (13.0-17.5) gm/dL Hct (39.0-53.0) % BUN 8 L (9-20) mg/dL Glucose 63 L (74-99) mg/dL POC Glucose (mg/dL) 70 L 103 H (75-99) mg/dL Calcium 7.5 L (8.4-10.2) mg/dL 01/02/20 Range/Units 11:46 WBC (3.8-10.6) k/uL RBC (4.30-5.90) m/uL Hgb (13.0-17.5) gm/dL Hct (39.0-53.0) % BUN (9-20) mg/dL Glucose (74-99) mg/dL POC Glucose (mg/dL) 149 H (75-99) mg/dL Calcium (8.4-10.2) mg/dL Microbiology - Last 24 Hours (Table) 12/29/19 23:22 Blood Culture - Preliminary Blood No Growth after 72 hours 12/30/19 14:52 Anaerobic Culture - Preliminary Back 12/31/19 12:08 Blood Culture - Preliminary Blood No Growth after 24 hours 12/30/19 14:52 Gram Stain - Final Back Wound Culture - Final Staphylococcus aureus Assessment and Plan Assessment: Assessment #1 abscess on the back/sepsis #2 paroxysmal atrial fibrillation #3 hypertension #4 dyslipidemia #5 sleep apnea #6 history of CVA Plan #1 continue the current medical regimen #2 increase the dose of metoprolol #3 the echo was reviewed and showed normal FUNCTION #4 follow-up with the patient
--- NOTE | 2020-01-02 13:16 | P.PN ---
Subjective Progress Note Date: 01/02/20 CHIEF COMPLAINT: Cellulitis of upper back and sepsis HISTORY OF PRESENT ILLNESS: Patient remains in the ICU. He is in normal sinus rhythm. Evaluated by cardiology for his A. fib. They have started Xarelto for anticoagulation. And he is off of the IV Cardizem in the added Lopressor. Patient's cellulitis area is showing improvement. He is still having pus drainage. He did have a temp of 100.7. WBC is down to 14.8 from 20.3. Culture did grow MSSA. ID discontinued the vancomycin patient currently on Cleocin. PHYSICAL EXAM: VITAL SIGNS: Reviewed. GENERAL: Well-developed in no acute distress. HEENT: No sclera icterus. Extraocular movements grossly intact. Moist buccal mucosa. Head is atraumatic, normocephalic. ABDOMEN: Soft. Nondistended. Nontender. NEUROLOGIC: Alert and oriented. Cranial nerves II through XII grossly intact. Skin : Patient's upper back there is a large area of cellulitis with erythema and warmth to touch. Area of erythema is decreasing in size. Tender with palpation. It is not fluctuant. It is indurated. A small area of pustules that have now opened and drained ASSESSMENT: 1. Cellulitis of the upper back with sebaceous cyst and sepsis. Now sponta neously draining. Culture growing MSSA 2. Prior history of cellulitis to the upper back 3. Diabetes mellitus insulin-dependent PLAN: -No surgical intervention planned -Continue with IV antibiotics per ID -Continue local wound care Physician Pow[employer] note has been reviewed by physician. Signing provider agrees with the documented findings, assessment, and plan of care. Objective - Vital Signs Vital signs: Vital Signs Temp 98.2 F 01/02/20 08:00 Pulse 109 H 01/02/20 09:00 Resp 23 01/02/20 09:00 BP 127/79 01/02/20 09:00 Pulse Ox 96 01/02/20 09:00 Intake & Output 01/01/20 01/02/20 01/02/20 18:59 06:59 18:59 Intake Total 2513.477 1730 440 Output Total 1100 1101 700 Balance 1413.477 629 -260 Weight 122.2 kg Intake: IV 2160 1580 440 Clindamycin 900 mg In 100 50 Dextrose 5% in Water 50 ml @ 50 mls/hr IVPB Q8HR [facility] Rx#:[id number] Sodium Chloride 0.9% 1, 1560 1430 390 000 ml @ 130 mls/hr IV . Q7H42M [facility] Rx#:[id number] Vancomycin 2,000 mg In 500 Sodium Chloride 0.9% 500 ml 500 ml @ 167 mls/hr IVPB Q12H [facility] Rx#: [id number] ceFAZolin 2 gm In Sodium 100 50 Chloride 0.9% 50 ml @ 100 mls/hr IVPB Q8HR [facility] Rx# :[id number] Intake, IV Titration 353.477 Amount Diltiazem 125 mg In 119.833 Sodium Chloride 0.9% 100 ml @ Per Protocol IV .Q0M [facility] Rx#:[id number] Heparin Sod,Pork in 0.45% 233.644 NaCl 25,000 unit In 0.45 % NaCl 1 250ml.bag @ 7.79 UNITS/KG/HR 10 mls/hr IV .Q24H [facility] Rx#:[id number] Oral 150 Output: Urine 1100 1100 700 Urine/Stool Mix 1 Other: Voiding Method Urinal Urinal Urinal # Voids 0 0 # Bowel Movements 1 - Labs CBC & Chem 7: 01/02/20 04:21 01/02/20 04:21 Labs: Abnormal Lab Results - Last 24 Hours (Table) 01/01/20 01/01/20 01/01/20 Range/Units 11:15 11:35 17:12 WBC (3.8-10.6) k/uL RBC (4.30-5.90) m/uL Hgb (13.0-17.5) gm/dL Hct (39.0-53.0) % APTT 31.8 H (22.0-30.0) sec BUN (9-20) mg/dL Glucose (74-99) mg/dL POC Glucose (mg/dL) 109 H 134 H (75-99) mg/dL Calcium (8.4-10.2) mg/dL 01/01/20 01/02/20 01/02/20 Range/Units 20:39 04:21 04:21 WBC 14.8 H (3.8-10.6) k/uL RBC 4.08 L (4.30-5.90) m/uL Hgb 12.0 L (13.0-17.5) gm/dL Hct 36.6 L (39.0-53.0) % APTT (22.0-30.0) sec BUN 8 L (9-20) mg/dL Glucose 63 L (74-99) mg/dL POC Glucose (mg/dL) 217 H (75-99) mg/dL Calcium 7.5 L (8.4-10.2) mg/dL 01/02/20 01/02/20 Range/Units 05:26 05:58 WBC (3.8-10.6) k/uL RBC (4.30-5.90) m/uL Hgb (13.0-17.5) gm/dL Hct (39.0-53.0) % APTT (22.0-30.0) sec BUN (9-20) mg/dL Glucose (74-99) mg/dL POC Glucose (mg/dL) 70 L 103 H (75-99) mg/dL Calcium (8.4-10.2) mg/dL Microbiology - Last 24 Hours (Table) 12/29/19 23:22 Blood Culture - Preliminary Blood No Growth after 72 hours 12/30/19 14:52 Anaerobic Culture - Preliminary Back 12/31/19 12:08 Blood Culture - Preliminary Blood No Growth after 24 hours 12/30/19 14:52 Gram Stain - Final Back Wound Culture - Final Staphylococcus aureus
[2020-01-02] MEDS ORDERED: QUEtiapine 25 MG TAB PO PRN (14:02)
--- NOTE | 2020-01-02 14:37 | P.PN ---
Subjective Patient is admitted with sepsis secondary to abscess in the upper back. He is to have infected sebaceous cyst which is actively draining at this time there are areas of pus pockets which are draining at this time. Wound cultures were obtained which is showing staph aureus. Patient will be started on vancomycin as patient is tachycardic now it appears to be severely septic will obtain a lactic acid level along with ABG. Patient is tachycardic apparently he was tachycardic in 200s heart rate presently around 150 obtaining an EKG to check th e rhythm. Unfortunately there are no beds available in ICU stepdown unit. She was given a bolus of IV fluids will give 1 more liter bolus at this time. Patient is presently on 4 L of oxygen patient was on ceftezole and will will be started on vancomycin and continue with clindamycin. Patient is hyponatremic hyponatremia improved at this time. Patient that diabetes is uncontrolled presently blood sugars are bit better compared to yesterday. Patient can use to be febrile. 01/01/2020 Patient was found to be in atrial fibrillation with heart rates going up to around 150 patient was given a dose of Cardizem subsequently converted to sinus rhythm and sinus tachycardia, went into A. fib again. Patient is a 90 correlation with IV heparin is presently on Cardizem blood pressure is doing charisma rly well chest x-ray did not show any pulmonary edema. Patient can use to have highly elevated white blood count with significant drainage from the abscess in the back. Wound cultures are still pending showing staph aureus presumptive since today's are pending. Echocardiogram is pending. 01/02/2020 patient heart rate is in 100s today. Cutting down the IV fluids patient's beta zee was increased. Patient is on anticoagulation with Xarelto. No plans for incision and drainage patient had an episode of confusion may be related to toxic encephalopathy from medications or infection.spontaneous drainage from the back. Ordered Seroquel on as-needed basis for Agitation secondary to deliri um Constitutional: Does have fever. Cardio vascular: denied any chest pain, palpitations Gastrointestinal denied any nausea vomiting Pulmonary: Denied any shortness of breath cough Neurologic denied any new focal deficits All inpatient medications were reviewed and appropriate changes in these med ications as dictated in the interval history and assessment and plan. Objective - Vital Signs Vital signs: Vital Signs Temp 98.2 F 01/02/20 08:00 Pulse 109 H 01/02/20 09:00 Resp 23 01/02/20 09:00 BP 127/79 01/02/20 09:00 Pulse Ox 96 01/02/20 09:00 Intake & Output 01/01/20 01/02/20 01/02/20 18:59 06:59 18:59 Intake Total 2513.477 1730 440 Output Total 1100 1101 700 Balance 1413.477 629 -260 Weight 122.2 kg Intake: IV 2160 1580 440 Clindamycin 900 mg In 100 50 Dextrose 5% in Water 50 ml @ 50 mls/hr IVPB Q8HR [facility] Rx#:[id number] Sodium Chloride 0.9% 1, 1560 1430 390 000 ml @ 130 mls/hr IV . Q7H42M [facility] Rx#:[id number] Vancomycin 2,000 mg In 500 Sodium Chloride 0.9% 500 ml 500 ml @ 167 mls/hr IVPB Q12H [facility] Rx#: [id number] ceFAZolin 2 gm In Sodium 100 50 Chloride 0.9% 50 ml @ 100 mls/hr IVPB Q8HR [facility] Rx# :[id number] Intake, IV Titration 353.477 Amount Diltiazem 125 mg In 119.833 Sodium Chloride 0.9% 100 ml @ Per Protocol IV .Q0M [facility] Rx#:[id number] Heparin Sod,Pork in 0.45% 233.644 NaCl 25,000 unit In 0.45 % NaCl 1 250ml.bag @ 7.79 UNITS/KG/HR 10 mls/hr IV .Q24H [facility] Rx#:[id number] Oral 150 Output: Urine 1100 1100 700 Urine/Stool Mix 1 Other: Voiding Method Urinal Urinal Urinal # Voids 0 0 # Bowel Movements 1 - Exam PHYSICAL EXAMINATION: GENERAL: The patient is alert and oriented x3, not in any acute distress. Obese HEENT: Pupils are round and equally reacting to light. EOMI. No scleral icterus. No conjunctival pallor. Normocephalic, atraumatic. No pharyngeal erythema. No thyromegaly. CARDIOVASCULAR: S1 and S2 present. No murmurs, rubs, or gallops. tachycardic irregularly irregular rhythm in atrial fibrillation PULMONARY: Chest is clear to auscultation, no wheezing or crackles. ABDOMEN: Soft, nontender, nondistended, normoactive bowel sounds. No palpable organomegaly. MUSCULOSKELETAL: No joint swelling or deformity. EXTREMITIES: No cyanosis, clubbing, or pedal edema. NEUROLOGICAL: Gross neurological examination did not reveal any focal deficits. SKIN: Patient has extensive cellulitis with induration on the back upper back just below the neck area predominantly in the right side extending beyond the midline with local is of temperature. And has areas of pus pocket which are actively draining appears to have infected sebaceous cyst. - Labs CBC & Chem 7: 01/02/20 04:21 01/02/20 04:21 Labs: Abnormal Lab Results - Last 24 Hours (Table) 01/01/20 01/01/20 01/02/20 Range/Units 17:12 20:39 04:21 WBC 14.8 H (3.8-10.6) k/uL RBC 4.08 L (4.30-5.90) m/uL Hgb 12.0 L (13.0-17.5) gm/dL Hct 36.6 L (39.0-53.0) % BUN (9-20) mg/dL Glucose (74-99) mg/dL POC Glucose (mg/dL) 134 H 217 H (75-99) mg/dL Calcium (8.4-10.2) mg/dL 01/02/20 01/02/20 01/02/20 Range/Units 04:21 05:26 05:58 WBC (3.8-10.6) k/uL RBC (4.30-5.90) m/uL Hgb (13.0-17.5) gm/dL Hct (39.0-53.0) % BUN 8 L (9-20) mg/dL Glucose 63 L (74-99) mg/dL POC Glucose (mg/dL) 70 L 103 H (75-99) mg/dL Calcium 7.5 L (8.4-10.2) mg/dL 01/02/20 Range/Units 11:46 WBC (3.8-10.6) k/uL RBC (4.30-5.90) m/uL Hgb (13.0-17.5) gm/dL Hct (39.0-53.0) % BUN (9-20) mg/dL Glucose (74-99) mg/dL POC Glucose (mg/dL) 149 H (75-99) mg/dL Calcium (8.4-10.2) mg/dL Microbiology - Last 24 Hours (Table) 12/29/19 23:22 Blood Culture - Preliminary Blood No Growth after 72 hours 12/30/19 14:52 Anaerobic Culture - Preliminary Back 12/31/19 12:08 Blood Culture - Preliminary Blood No Growth after 24 hours 12/30/19 14:52 Gram Stain - Final Back Wound Culture - Final Staphylococcus aureus Assessment and Plan Plan: -Sepsis and cellulitis an abscess abscess or infectious sebaceous cyst of the right upper back. abscesses spontaneously draining , patient has MSSA in the cultures patient is presently on the ceftezolin and clindamycin.. -New onset atrial fibrillation resuscitated by by infection and sepsis echocardiogram showed normal ejection fraction.patient is presently on metoprolol and Xarelto. -Toxic encephalopathy from sepsis -Acute hypoxic respiratory failure: Secondary to possibly sepsis , try and wean off oxygen -Hyponatremia: Pseudohyponatremia along with hypovolemic hyponatremia, continue with IV fluids -Type 2 diabetes mellitus uncontrolled better controlled compared to yesterday will continue to monitor on present regimen -Hypertension: Patient is severely septic and hypotensive because of which will hold off on blood pressure medications -Sleep apnea uses CPAP machine at home. -DVT prophylaxis with Lovenox.
[2020-01-02 17:32] LABS: Glucose,Whole Blood 212 mg/dL (75-99)
[2020-01-02] MEDS: RIVAROXABAN 15 MG TAB PO SCH (17:43)
[2020-01-02] MEDS ORDERED: INSULIN DETEMIR (LEVEMIR) 100 UNIT/ML SYR SQ SCH (21:00)
[2020-01-02] MEDS: ATORVASTATIN 20 MG TAB PO SCH (21:03)
[2020-01-02] MEDS: METOPROLOL TARTRATE 50 MG TAB PO SCH (21:03)
[2020-01-02 21:04] LABS: Glucose,Whole Blood 221 mg/dL (75-99)
--- NOTE | 2020-01-02 22:18 | PN ---
PROGRESS NOTE DATE OF SERVICE: 01/02/2020 REASON FOR FOLLOWUP: Upper back infected sebaceous cyst/abscess. INTERVAL HISTORY: Patient is currently afebrile. He is breathing comfortably. Overall pain and discomfort to the upper back area has improved. No chest pain, shortness of breath or cough. No abdominal pain or diarrhea. EXAMINATION: Blood pressure 136/84 with a pulse of 106, temperature 98.4, he is 96% on 2 L nasal cannula. General description is a middle-aged male up in the chair in no distress. Respiratory system: Unlabored breathing, clear to auscultation. HEART: S1, S2. Regular. ABDOMEN: Soft. No tenderness. Upper back area swelling has decreased. LABS: Hemoglobin is 12, white count 14.8, creatinine 0.71. Blood culture has been negative. Local culture positive for MSSA. DIAGNOSTIC IMPRESSION AND PLAN: Patient with MSSA upper back abscess status post spontaneous drainage. The patient is covered with cefazolin and clindamycin. He has extensive infection He will likely need outpatient IV antibiotic, should be arranged. Continue supportive care. MMODL / IJN: [id number] /
[2020-01-03] MEDS: CLINDAMYCIN 900 MG in DEXTROSE 5% IN WATER 50 ML IVPB SCH ×6 (01:53→17:24)
[2020-01-03 02:58] LABS: Glucose,Whole Blood 68 mg/dL (75-99)
[2020-01-03 03:13] LABS: Glucose,Whole Blood 90 mg/dL (75-99)
[2020-01-03 06:54] LABS: HCT 39.1 % (39.0-53.0); HGB 12.9 gm/dL (13.0-17.5); MCH 29.4 pg (25.0-35.0); MCHC 32.9 g/dL (31.0-37.0); MCV 89.4 fL (80.0-100.0); Mean Platelet Volume 7.8; Platelet Count 409 k/uL (150-450); RBC 4.38 m/uL (4.30-5.90); RDW 12.8 % (11.5-15.5); WBC 12.2 k/uL (3.8-10.6)
[2020-01-03 07:11] LABS: African American GFR (CKD) >90 (>60 ml/min/1.73 sqM); Anion Gap 6 mmol/L; Blood Urea Nitrogen 8 mg/dL (9-20); Carbon Dioxide 29 mmol/L (22-30); Chloride 104 mmol/L (98-107); Glucose 120 mg/dL (74-99); Non-African American GFR(CKD) >90 (>60 ml/min/1.73 sqM); Sodium 139 mmol/L (137-145)
[2020-01-03 07:16] LABS: Glucose,Whole Blood 113 mg/dL (75-99)
[2020-01-03] MEDS: INSULIN ASPART (NovoLOG) 100 UNIT/ML VIAL SQ SCH ×4 (08:48→21:41)
[2020-01-03] MEDS: METOPROLOL TARTRATE 50 MG TAB PO SCH ×3 (08:55→21:41)
[2020-01-03] MEDS: FAMOTIDINE 20 MG TAB PO SCH ×2 (08:55→21:40)
[2020-01-03] MEDS: GABAPENTIN 300 MG CAP PO SCH ×3 (08:55→21:41)
[2020-01-03] MEDS: CLOPIDOGREL 75 MG TAB PO SCH (08:55)
[2020-01-03] MEDS: MULTIVITAMINS, THERA 1 EACH TAB PO SCH (08:55)
--- NOTE | 2020-01-03 10:12 | P.PN ---
Subjective Progress Note Date: 01/03/20 Principal diagnosis: Paroxysmal atrial fibrillation This is a 54-year-old gentleman with multiple comorbid conditions including hypertension and dyslipidemia and diabetes and sleep apnea and also history of CVA was admitted to the hospital with sepsis secondary to abscess on the right upper back. We consulted to see him because of atrial fibrillation with RVR. The patient was seen today. He was transferred out of the ICU. He is a slightly tachycardic but the pressure is good. I'm going to increase the dose of metoprolol to 50 mg by mouth 3 times a day. He continues to be on anticoagulation. The echo revealed normal LV function without significant valvular abnormalities. Objective - Vital Signs Vital signs: Vital Signs Temp 97.7 F 01/03/20 05:00 Pulse 104 H 01/03/20 05:00 Resp 16 01/03/20 05:00 BP 138/81 01/03/20 05:00 Pulse Ox 94 L 01/03/20 05:00 Intake & Output 01/02/20 01/03/20 01/03/20 18:59 06:59 18:59 Intake Total 440 665 Output Total 700 1575 450 Balance -260 -910 -450 Intake: IV 440 75 Sodium Chloride 0.9% 1, 390 75 000 ml @ 75 mls/hr IV . [id number] JACK Rx#:[id number] ceFAZolin 2 gm In Sodium 50 Chloride 0.9% 50 ml @ 100 mls/hr IVPB Q8HR JACK Rx# :[id number] Oral 590 Output: Urine 700 1575 450 Other: Voiding Method Urinal Urinal # Voids 4 1 # Bowel Movements 3 - Constitutional General appearance: Present: no acute distress - Respiratory Respiratory: bilateral: CTA - Cardiovascular Rhythm: regular Heart sounds: normal: S1, S2 - Labs CBC & Chem 7: 01/03/20 06:32 01/03/20 06:32 Labs: Abnormal Lab Results - Last 24 Hours (Table) 01/02/20 01/02/20 01/02/20 Range/Units 11:46 17:31 21:03 WBC (3.8-10.6) k/uL Hgb (13.0-17.5) gm/dL BUN (9-20) mg/dL Creatinine (0.66-1.25) mg/dL Glucose (74-99) mg/dL POC Glucose (mg/dL) 149 H 212 H 221 H (75-99) mg/dL Calcium (8.4-10.2) mg/dL 01/03/20 01/03/20 01/03/20 Range/Units 02:53 06:32 06:32 WBC 12.2 H (3.8-10.6) k/uL Hgb 12.9 L (13.0-17.5) gm/dL BUN 8 L (9-20) mg/dL Creatinine 0.65 L (0.66-1.25) mg/dL Glucose 120 H (74-99) mg/dL POC Glucose (mg/dL) 68 L (75-99) mg/dL Calcium 8.0 L (8.4-10.2) mg/dL 01/03/20 Range/Units 07:14 WBC (3.8-10.6) k/uL Hgb (13.0-17.5) gm/dL BUN (9-20) mg/dL Creatinine (0.66-1.25) mg/dL Glucose (74-99) mg/dL POC Glucose (mg/dL) 113 H (75-99) mg/dL Calcium (8.4-10.2) mg/dL Microbiology - Last 24 Hours (Table) 12/29/19 23:22 Blood Culture - Preliminary Blood No Growth after 96 hours 12/31/19 12:08 Blood Culture - Preliminary Blood No Growth after 48 hours Assessment and Plan Assessment: Assessment #1 abscess on the back/sepsis #2 paroxysmal atrial fibrillation #3 hypertension #4 dyslipidemia #5 sleep apnea #6 history of CVA Plan #1 continue the current medical regimen #2 increase the dose of metoprolol #3 the echo was reviewed and showed normal FUNCTION #4 follow-up with the patient
[2020-01-03 12:37] LABS: Glucose,Whole Blood 165 mg/dL (75-99)
--- NOTE | 2020-01-03 16:02 | P.PN ---
Subjective Patient is admitted with sepsis secondary to abscess in the upper back. He is to have infected sebaceous cyst which is actively draining at this time there are areas of pus pockets which are draining at this time. Wound cultures were obtained which is showing staph aureus. Patient will be started on vancomycin as patient is tachycardic now it appears to be severely septic will obtain a lactic acid level along with ABG. Patient is tachycardic apparently he was tachycardic in 200s heart rate presently around 150 obtaining an EKG to check th e rhythm. Unfortunately there are no beds available in ICU stepdown unit. She was given a bolus of IV fluids will give 1 more liter bolus at this time. Patient is presently on 4 L of oxygen patient was on ceftezole and will will be started on vancomycin and continue with clindamycin. Patient is hyponatremic hyponatremia improved at this time. Patient that diabetes is uncontrolled presently blood sugars are bit better compared to yesterday. Patient can use to be febrile. 01/01/2020 Patient was found to be in atrial fibrillation with heart rates going up to around 150 patient was given a dose of Cardizem subsequently converted to sinus rhythm and sinus tachycardia, went into A. fib again. Patient is a 90 correlation with IV heparin is presently on Cardizem blood pressure is doing charisma rly well chest x-ray did not show any pulmonary edema. Patient can use to have highly elevated white blood count with significant drainage from the abscess in the back. Wound cultures are still pending showing staph aureus presumptive since today's are pending. Echocardiogram is pending. 01/02/2020 patient heart rate is in 100s today. Cutting down the IV fluids patient's beta zee was increased. Patient is on anticoagulation with Xarelto. No plans for incision and drainage patient had an episode of confusion may be related to toxic encephalopathy from medications or infection.spontaneous drainage from the back. Ordered Seroquel on as-needed basis for Agitation secondary to deliri um 01/03/2020 Patient is presently rate controlled but holding on anti-coagulation at this time Possible PICC line placement on Sunday. Patient the has extensive infection, cellulitis and abscesses because of thispictures disease recommending IV antibiotics. PICC line was ordered for Sunday. Patient is bit hypoglycemic at nighttime and cutting down the long-acting insulin from 80 units to 65 units will continue with the pre-meal sliding scale insulin. Constitutional: Does have fever. Cardio vascular: denied any chest pain, palpitations Gastrointestinal denied any nausea vomiting Pulmonary: Denied any shortness of breath cough Neurologic denied any new focal deficits All inpatient medications were reviewed and appropriate changes in these medications as dictated in the interval history and assessment and plan. Objective - Vital Signs Vital signs: Vital Signs Temp 98.0 F 01/03/20 13:00 Pulse 95 01/03/20 13:00 Resp 18 01/03/20 13:00 BP 130/69 01/03/20 13:00 Pulse Ox 94 L 01/03/20 13:00 Intake & Output 01/02/20 01/03/20 01/03/20 18:59 06:59 18:59 Intake Total 090 611 6229 Output Total 700 1575 2600 Balance -260 -910 -870 Intake: IV 440 75 800 Clindamycin 900 mg In 50 Dextrose 5% in Water 50 ml @ 50 mls/hr IVPB Q8HR JACK Rx#:[id number] Sodium Chloride 0.9% 1, 390 75 700 000 ml @ 75 mls/hr IV . [id number] JACK Rx#:[id number] ceFAZolin 2 gm In Sodium 50 50 Chloride 0.9% 50 ml @ 100 mls/hr IVPB Q8HR JACK Rx# :[id number] Intake, IV Titration 50 Amount ceFAZolin 2 gm In Sodium 50 Chloride 0.9% 50 ml @ 100 mls/hr IVPB Q8HR JACK Rx# :[id number] Oral 590 880 Output: Urine 700 1575 2600 Other: Voiding Method Urinal Urinal Urinal # Voids 4 1 # Bowel Movements 3 - Exam PHYSICAL EXAMINATION: GENERAL: The patient is alert and oriented x3, not in any acute distress. Obese HEENT: Pupils are round and equally reacting to light. EOMI. No scleral icterus. No conjunctival pallor. Normocephalic, atraumatic. No pharyngeal erythema. No thyromegaly. CARDIOVASCULAR: S1 and S2 present. No murmurs, rubs, or gallops. tachycardic irregularly irregular rhythm in atrial fibrillation PULMONARY: Chest is clear to auscultation, no wheezing or crackles. ABDOMEN: Soft, nontender, nondistended, normoactive bowel sounds. No palpable organomegaly. MUSCULOSKELETAL: No joint swelling or deformity. EXTREMITIES: No cyanosis, clubbing, or pedal edema. NEUROLOGICAL: Gross neurological examination did not reveal any focal deficits. SKIN: Patient has extensive cellulitis with induration on the back upper back just below the neck area predominantly in the right side extending beyond the m idline with local is of temperature. And has areas of pus pocket which are actively draining appears to have infected sebaceous cyst. - Labs CBC & Chem 7: 01/03/20 06:32 01/03/20 06:32 Labs: Abnormal Lab Results - Last 24 Hours (Table) 01/02/20 01/02/20 01/03/20 Range/Units 17:31 21:03 02:53 WBC (3.8-10.6) k/uL Hgb (13.0-17.5) gm/dL BUN (9-20) mg/dL Creatinine (0.66-1.25) mg/dL Glucose (74-99) mg/dL POC Glucose (mg/dL) 212 H 221 H 68 L (75-99) mg/dL Calcium (8.4-10.2) mg/dL 01/03/20 01/03/20 01/03/20 Range/Units 06:32 06:32 07:14 WBC 12.2 H (3.8-10.6) k/uL Hgb 12.9 L (13.0-17.5) gm/dL BUN 8 L (9-20) mg/dL Creatinine 0.65 L (0.66-1.25) mg/dL Glucose 120 H (74-99) mg/dL POC Glucose (mg/dL) 113 H (75-99) mg/dL Calcium 8.0 L (8.4-10.2) mg/dL 01/03/20 Range/Units 12:34 WBC (3.8-10.6) k/uL Hgb (13.0-17.5) gm/dL BUN (9-20) mg/dL Creatinine (0.66-1.25) mg/dL Glucose (74-99) mg/dL POC Glucose (mg/dL) 165 H (75-99) mg/dL Calcium (8.4-10.2) mg/dL Microbiology - Last 24 Hours (Table) 12/31/19 12:08 Blood Culture - Preliminary Blood No Growth after 72 hours 12/29/19 23:22 Blood Culture - Preliminary Blood No Growth after 96 hours Assessment and Plan Plan: -Sepsis and cellulitis an abscess abscess or infectious sebaceous cyst of the right upper back. abscesses spontaneously draining , patient has MSSA in the cultures patient is presently on the ceftezolin and clindamycin..patient will require IV antibiotics PICC line was ordered -New onset atrial fibrillation resuscitated by by infection and sepsis echocardiogram showed normal ejection fraction.patient is presently on metoprolol. Xareltois on hold. -Toxic encephalopathy from sepsis -Acute hypoxic respiratory failure: Secondary to possibly sepsis , rule out not requiring any oxygen -Hyponatremia: Pseudohyponatremia along with hypovolemic hyponatremia, continue with IV fluids -Type 2 diabetes mellitus uncontrolled better controlled compared to yesterday will continue to monitor on present regimen -Hypertension: Patient is severely septic and hypotensive because of which will hold off on blood pressure medications -Sleep apnea uses CPAP machine at home. -DVT prophylaxis with Lovenox.
--- NOTE | 2020-01-03 16:38 | P.PN ---
Subjective Progress Note Date: 01/03/20 CHIEF COMPLAINT: Cellulitis of the back HISTORY OF PRESENT ILLNESS: The patient is a 54-year-old male with history of cellulitis of the back. Patient is resting comfortably. He has BiPAP on. No new complaints ROS: No reports of nausea and vomiting. No fevers or chills. No new chest pain. No productive sputum PHYSICAL EXAM: VITAL SIGNS: Reviewed CONSTITUTIONAL: Well developed and in no acute distress. EYES: Conjuctivae without sclera icterus. Extraocular movements grossly intact. HEAD, EARS, NOSE, THROAT: Moist buccal mucosa. Head is atraumatic, normocephalic. Hears conversational speech. No nasal drainage. NECK: Supple. RESPIRATORY: Non-labored respirations and equal bilateral excursions. CARDIOVASCULAR: Palpable 2+ radial pulses. ABDOMEN: No peritonitis MUSCULOSKELETAL: No gross deformity of the lower extremities noted. No clubbing. No cyanosis. SKIN: Good skin turgor. Well perfused. NEUROLOGIC: Cranial nerves II through XII grossly intact. No focal or lateralizing signs. PSYCH: Appropriate affect. Alert and oriented to person, place and time. CLINICAL LABS: WBC elevated over 12,000 ASSESSMENT: 1. Sepsis 2. Cellulitis of the back PLAN: 1. Continue IV antibiotics 2. Diet as tolerated Objective - Vital Signs Vital signs: Vital Signs Temp 98.0 F 01/03/20 13:00 Pulse 95 01/03/20 13:00 Resp 18 01/03/20 13:00 BP 130/69 01/03/20 13:00 Pulse Ox 94 L 01/03/20 13:00 Intake & Output 01/02/20 01/03/20 01/03/20 18:59 06:59 18:59 Intake Total 970 377 7323 Output Total 700 1575 2600 Balance -260 -910 -870 Intake: IV 440 75 800 Clindamycin 900 mg In 50 Dextrose 5% in Water 50 ml @ 50 mls/hr IVPB Q8HR JACK Rx#:[id number] Sodium Chloride 0.9% 1, 390 75 700 000 ml @ 75 mls/hr IV . [id number] JACK Rx#:[id number] ceFAZolin 2 gm In Sodium 50 50 Chloride 0.9% 50 ml @ 100 mls/hr IVPB Q8HR JACK Rx# :[id number] Intake, IV Titration 50 Amount ceFAZolin 2 gm In Sodium 50 Chloride 0.9% 50 ml @ 100 mls/hr IVPB Q8HR [facility] Rx# :[id number] Oral 590 880 Output: Urine 700 1575 2600 Other: Voiding Method Urinal Urinal Urinal # Voids 4 1 # Bowel Movements 3 - Labs CBC & Chem 7: 01/03/20 06:32 01/03/20 06:32 Labs: Abnormal Lab Results - Last 24 Hours (Table) 01/02/20 01/02/20 01/03/20 Range/Units 17:31 21:03 02:53 WBC (3.8-10.6) k/uL Hgb (13.0-17.5) gm/dL BUN (9-20) mg/dL Creatinine (0.66-1.25) mg/dL Glucose (74-99) mg/dL POC Glucose (mg/dL) 212 H 221 H 68 L (75-99) mg/dL Calcium (8.4-10.2) mg/dL 01/03/20 01/03/20 01/03/20 Range/Units 06:32 06:32 07:14 WBC 12.2 H (3.8-10.6) k/uL Hgb 12.9 L (13.0-17.5) gm/dL BUN 8 L (9-20) mg/dL Creatinine 0.65 L (0.66-1.25) mg/dL Glucose 120 H (74-99) mg/dL POC Glucose (mg/dL) 113 H (75-99) mg/dL Calcium 8.0 L (8.4-10.2) mg/dL 01/03/20 Range/Units 12:34 WBC (3.8-10.6) k/uL Hgb (13.0-17.5) gm/dL BUN (9-20) mg/dL Creatinine (0.66-1.25) mg/dL Glucose (74-99) mg/dL POC Glucose (mg/dL) 165 H (75-99) mg/dL Calcium (8.4-10.2) mg/dL Microbiology - Last 24 Hours (Table) 12/31/19 12:08 Blood Culture - Preliminary Blood No Growth after 72 hours 12/29/19 23:22 Blood Culture - Preliminary Blood No Growth after 96 hours Assessment and Plan (1) Morbid (severe) obesity due to excess calories Current Visit: Yes Status: Acute Code(s): E66.01 - MORBID (SEVERE) OBESITY DUE TO EXCESS CALORIES SNOMED Code(s): 131185211 (2) Cellulitis Current Visit: Yes Status: Acute Code(s): L03.90 - CELLULITIS, UNSPECIFIED SNOMED Code(s): 582713524 (3) Diabetes mellitus Current Visit: Yes Status: Acute Code(s): E11.9 - TYPE 2 DIABETES MELLITUS WITHOUT COMPLICATIONS SNOMED Code(s): 50388977 (4) Sepsis Current Visit: Yes Status: Acute Code(s): A41.9 - SEPSIS, UNSPECIFIED ORGANISM SNOMED Code(s): 19158575
[2020-01-03] MEDS: traMADol 50 MG TAB PO PRN (16:49)
[2020-01-03] MEDS: RIVAROXABAN 15 MG TAB PO SCH (16:53)
[2020-01-03] MEDS: SODIUM CHLORIDE 0.9% 1,000 ML IV SCH (16:53)
--- NOTE | 2020-01-03 17:19 | P.PN ---
Subjective Progress Note Date: 01/03/20 Principal diagnosis: Cellulitis and draining wound on the back This is a very pleasant 54-year-old gentleman who follows with Dr. Efren Daley as his primary care provider. He has a history of diabetes mellitus, hypertension, hyperlipidemia, CVA/TIA, obstructive sleep apnea on CPAP in the outpatient setting. He presented to the emergency room on 12/29/2019 with complaints of generalized fatigue weakness shortness of breath, nausea. He did develop a small bump on the right upper back that he felt was a bug bite of some sort. Prior to his arrival at [facility] open was draining copious amounts of purulent fluid. He's had fevers and aches and pains. Yesterday while on the [facility] medical floor the patient developed atrial fibrillation with rapid ventricular response. An A Team was called and patient with subsequent transferred here to the intensive care unit. He is on 4 L/m per nasal cannula and maintaining O2 saturations in the 90s. He has Cardizem drip at 10 mg per hour. Initiated on a heparin drip per weight base protocol. 0.9 normal saline at 130 ML's per hour. Wound culture showing presumptive MRSA. He is currently on Ancef, clindamycin, vancomycin. Chest x-ray reveals right perihilar infiltrate. He is seen today in consultation in the intensive care unit. He is currently sitting up in a chair at the bedside. Awake and alert in no acute distress. He is feeling a bit better today compared to yesterday. He is febrile with a temp of 101.7. Remains tachycardic in the 110s. White count 20.3. Hemoglobin 11.5. Sodium 131. Potassium 3.9. Creatinine 0.68. Kwon virus not detected. The patient is seen today 01/02/2020 in follow-up in the intensive care unit. He is currently sitting up at the bedside. Awake and alert in no acute distr ess. He did have some issues with altered mentation last evening requiring a sitter to be present. He is alert and oriented 3 today. He needs increased encouragement to utilize his home CPAP status at the bedside. Otherwise, he denies any worsening shortness of breath, cough or congestion. He is maintaining O2 saturations in the 90s on 2 L/m per nasal cannula. He has 0.9 normal saline at 130 ML's per hour. Cultures from the wound on his back are positive for staph aureus oxacillin sensitive. He remains on clindamycin and Ancef. White count 14.8. Hemoglobin 12.0. Sodium 137. Potassium 3.8. Creatinine 0.71. The patient is seen today 01/03/2020 in follow-up on the regular medical floor. He is currently sitting up at the bedside. Awake and alert in no acute distress. Maintaining O2 saturation in the 90s on room air. He is afebrile. White count 0.2. Hemoglobin 12.9. Sodium 139. Potassium 4.0. Creatinine 0.65. He remains on antibiotics in the form of clindamycin and cefazolin. Objective - Vital Signs Vital signs: Vital Signs Temp 98.0 F 01/03/20 13:00 Pulse 95 01/03/20 13:00 Resp 18 01/03/20 13:00 BP 130/69 01/03/20 13:00 Pulse Ox 94 L 01/03/20 13:00 Intake & Output 01/02/20 01/03/20 01/03/20 18:59 06:59 18:59 Intake Total 449 609 8817 Output Total 700 1575 2600 Balance -260 -910 -870 Intake: IV 440 75 800 Clindamycin 900 mg In 50 Dextrose 5% in Water 50 ml @ 50 mls/hr IVPB Q8HR JACK Rx#:[id number] Sodium Chloride 0.9% 1, 390 75 700 000 ml @ 75 mls/hr IV . [id number] JACK Rx#:[id number] ceFAZolin 2 gm In Sodium 50 50 Chloride 0.9% 50 ml @ 100 mls/hr IVPB Q8HR JACK Rx# :[id number] Intake, IV Titration 50 Amount ceFAZolin 2 gm In Sodium 50 Chloride 0.9% 50 ml @ 100 mls/hr IVPB Q8HR JACK Rx# :[id number] Oral 590 880 Output: Urine 700 1575 2600 Other: Voiding Method Urinal Urinal Urinal # Voids 4 1 # Bowel Movements 3 - Exam GENERAL EXAM: Alert, obese, pleasant 54-year-old gentleman, on room air and comfortable in no apparent distress. HEAD: Normocephalic. EYES: Normal reaction of pupils, equal size. NOSE: Clear with pink turbinates. THROAT: Crowding of posterior pharynx No erythema or exudates. NECK: No masses, no JVD. CHEST: No chest wall deformity. LUNGS: Equal air entry with few scattered rhonchi, diminished. CVS: S1 and S2 normal with no audible murmur, regular rhythm. ABDOMEN: No hepatosplenomegaly, normal bowel sounds, no guarding or rigidity. SPINE: No scoliosis or deformity SKIN: Large area of the right upper back with edema, redness, warmth and open drainage. CENTRAL NERVOUS SYSTEM: No focal deficits, tone is normal in all 4 extremities. EXTREMITIES: There is no peripheral edema. No clubbing, no cyanosis. Peripheral pulses are intact. - Labs CBC & Chem 7: 01/03/20 06:32 01/03/20 06:32 Labs: Abnormal Lab Results - Last 24 Hours (Table) 01/02/20 01/02/20 01/03/20 Range/Units 17:31 21:03 02:53 WBC (3.8-10.6) k/uL Hgb (13.0-17.5) gm/dL BUN (9-20) mg/dL Creatinine (0.66-1.25) mg/dL Glucose (74-99) mg/dL POC Glucose (mg/dL) 212 H 221 H 68 L (75-99) mg/dL Calcium (8.4-10.2) mg/dL 01/03/20 01/03/20 01/03/20 Range/Units 06:32 06:32 07:14 WBC 12.2 H (3.8-10.6) k/uL Hgb 12.9 L (13.0-17.5) gm/dL BUN 8 L (9-20) mg/dL Creatinine 0.65 L (0.66-1.25) mg/dL Glucose 120 H (74-99) mg/dL POC Glucose (mg/dL) 113 H (75-99) mg/dL Calcium 8.0 L (8.4-10.2) mg/dL 01/03/20 Range/Units 12:34 WBC (3.8-10.6) k/uL Hgb (13.0-17.5) gm/dL BUN (9-20) mg/dL Creatinine (0.66-1.25) mg/dL Glucose (74-99) mg/dL POC Glucose (mg/dL) 165 H (75-99) mg/dL Calcium (8.4-10.2) mg/dL Microbiology - Last 24 Hours (Table) 12/31/19 12:08 Blood Culture - Preliminary Blood No Growth after 72 hours 12/29/19 23:22 Blood Culture - Preliminary Blood No Growth after 96 hours Assessment and Plan Assessment: 1 Acute cellulitis with sepsis injury to the right upper back wound infection with MSSA, currently on Ancef and clindamycin 2 Leukocytosis secondary to above him a improving 3 Atrial fibrillation with rapid ventricular response, improved, anticoagulated with Xarelto 4 Acute on chronic hypoxic respiratory failure secondary to right perihilar infiltrate 5 History of obstructive sleep apnea and on CPAP in the outpatient setting 6 Diabetes mellitus 7 Hyperlipidemia 8 Hypertension 9 History of CVA/TIA Plan: The patient was seen and evaluated by Dr. Palmer Continue with the current antibiotics for now Stable from the pulmonary and critical care standpoint We'll see the patient has needed I, the cosigning physician, performed a history & physical examination of the patient. Lungs sounds clear. Maintaining good O2 saturations in the 90s on room air. I discussed the assessment and plan of care with my nurse practitioner, Shelli Montemayor. I attest to the above note as dictated by her.
[2020-01-03 17:37] LABS: Glucose,Whole Blood 189 mg/dL (75-99)
[2020-01-03 19:48] LABS: Glucose,Whole Blood 252 mg/dL (75-99)
[2020-01-03] MEDS: ATORVASTATIN 20 MG TAB PO SCH (21:40)
[2020-01-03] MEDS: INSULIN DETEMIR (LEVEMIR) 100 UNIT/ML SYR SQ SCH (21:41)
--- NOTE | 2020-01-03 23:26 | PN ---
PROGRESS NOTE DATE OF SERVICE: 01/03/2020 REASON FOR FOLLOW UP: MSSA upper back abscess and cellulitis. INTERVAL HISTORY: Patient is currently afebrile, has been breathing comfortably. Overall pain and discomfort to the upper back area has improved. Drainage has decreased. No chest pain. No cough and no diarrhea. PHYSICAL EXAMINATION: Blood pressure is 162/80 with a pulse of 88. Temperature 97.8. He is 94% on room air. General description: The patient is a middle-aged male up in the bed in no distress. Respiratory system: Unlabored breathing, clear to auscultation anteriorly. Heart S1-S2 regular rate and rhythm. ABDOMEN: Soft. The upper back area swelling and redness has decreased. LABS: Hemoglobin is 12.8, white count 20.2, creatinine 0.65. Wound culture with MSSA. Blood culture negative. DIAGNOSTIC IMPRESSION AND PLAN: Patient with upper back abscess status post spontaneous drainage. Culture with MSSA. Blood culture negative. Will wait for the PICC or midline placement an outpatient antibiotics in the form of Cefazolin, will need for at least 10 days to 2 weeks. Continue supportive care. MMODL / IJN: [id number] /
[2020-01-04] MEDS: SODIUM CHLORIDE 0.9% 1,000 ML IV SCH ×2 (04:04→17:30)
[2020-01-04 06:01] LABS: HGB 12.3 gm/dL (13.0-17.5); MCH 29.1 pg (25.0-35.0); MCHC 32.3 g/dL (31.0-37.0); MCV 89.9 fL (80.0-100.0); Mean Platelet Volume 8.1; Platelet Count 382 k/uL (150-450); RBC 4.23 m/uL (4.30-5.90); RDW 12.7 % (11.5-15.5); WBC 9.9 k/uL (3.8-10.6)
[2020-01-04 07:14] LABS: Glucose,Whole Blood 99 mg/dL (75-99)
[2020-01-04] MEDS: INSULIN ASPART (NovoLOG) 100 UNIT/ML VIAL SQ SCH ×4 (07:25→22:28)
[2020-01-04] MEDS: MULTIVITAMINS, THERA 1 EACH TAB PO SCH (07:42)
[2020-01-04] MEDS: GABAPENTIN 300 MG CAP PO SCH ×3 (07:42→22:27)
[2020-01-04] MEDS: METOPROLOL TARTRATE 50 MG TAB PO SCH ×3 (07:42→22:28)
[2020-01-04] MEDS: FAMOTIDINE 20 MG TAB PO SCH ×2 (07:43→22:27)
--- NOTE | 2020-01-04 09:57 | P.PN ---
Subjective Progress Note Date: 01/04/20 Principal diagnosis: Paroxysmal atrial fibrillation This is a 54-year-old gentleman with multiple comorbid conditions including hypertension and dyslipidemia and diabetes and sleep apnea and also history of CVA was admitted to the hospital with sepsis secondary to abscess on the right upper back. We consulted to see him because of atrial fibrillation with RVR. The patient was seen today. He is asymptomatic from a cardiovascular standpoint of view. He is on metoprolol. For some reason the oral anticoagulation was stopped or dropped and I'm going to restart him back on it. From the cardiovascular standpoint of view, no need for any further cardiac workup and will follow-up with the patient on when necessary case Objective - Vital Signs Vital signs: Vital Signs Temp 98.7 F 01/04/20 05:00 Pulse 95 01/04/20 05:00 Resp 16 01/04/20 05:00 BP 145/75 01/04/20 05:00 Pulse Ox 98 01/04/20 05:00 Intake & Output 01/03/20 01/04/20 01/04/20 18:59 06:59 18:59 Intake Total 2090 2130 Output Total 3200 2550 600 Balance -1110 -420 -600 Intake: IV 800 950 Clindamycin 900 mg In 50 Dextrose 5% in Water 50 ml @ 50 mls/hr IVPB Q8HR JACK Rx#:[id number] Sodium Chloride 0.9% 1, 700 900 000 ml @ 75 mls/hr IV . [id number] JACK Rx#:[id number] ceFAZolin 2 gm In Sodium 50 50 Chloride 0.9% 50 ml @ 100 mls/hr IVPB Q8HR JACK Rx# :[id number] Intake, IV Titration 50 Amount ceFAZolin 2 gm In Sodium 50 Chloride 0.9% 50 ml @ 100 mls/hr IVPB Q8HR JACK Rx# :[id number] Oral 1240 1180 Output: Urine 3200 2550 600 Other: Voiding Method Urinal Urinal # Voids 1 1 - Constitutional General appearance: Present: no acute distress - Respiratory Respiratory: bilateral: CTA - Cardiovascular Rhythm: regular Heart sounds: normal: S1, S2 - Labs CBC & Chem 7: 01/04/20 04:56 01/03/20 06:32 Labs: Abnormal Lab Results - Last 24 Hours (Table) 01/03/20 01/03/20 01/03/20 Range/Units 12:34 17:35 19:46 RBC (4.30-5.90) m/uL Hgb (13.0-17.5) gm/dL Hct (39.0-53.0) % POC Glucose (mg/dL) 165 H 189 H 252 H (75-99) mg/dL 01/04/20 Range/Units 04:56 RBC 4.23 L (4.30-5.90) m/uL Hgb 12.3 L (13.0-17.5) gm/dL Hct 38.0 L (39.0-53.0) % POC Glucose (mg/dL) (75-99) mg/dL Microbiology - Last 24 Hours (Table) 12/29/19 23:22 Blood Culture - Preliminary Blood No Growth after 120 hours 12/31/19 12:08 Blood Culture - Preliminary Blood No Growth after 72 hours Assessment and Plan Assessment: Assessment #1 abscess on the back/sepsis #2 paroxysmal atrial fibrillation #3 hypertension #4 dyslipidemia #5 sleep apnea #6 history of CVA Plan #1 continue the current medical regimen #2 follow-up with the patient on when necessary case
[2020-01-04 10:09] LABS: African American GFR (CKD) 123.1 (60.0-200.0); Anion Gap 5.8 mmol/L (4.00-12.00); BUN/Creat Ratio 12.86 Ratio (12.00-20.00); Calcium 8.1 mg/dL (8.7-10.3); Carbon Dioxide 32.2 mmol/L (21.6-31.8); Non-African American GFR(CKD) 106.2 (60.0-200.0); Potassium 4.5 mmol/L (3.5-5.5)
--- NOTE | 2020-01-04 10:42 | P.PN ---
Subjective Patient is admitted with sepsis secondary to abscess in the upper back. He is to have infected sebaceous cyst which is actively draining at this time there are areas of pus pockets which are draining at this time. Wound cultures were obtained which is showing staph aureus. Patient will be started on vancomycin as patient is tachycardic now it appears to be severely septic will obtain a lactic acid level along with ABG. Patient is tachycardic apparently he was tachycardic in 200s heart rate presently around 150 obtaining an EKG to check th e rhythm. Unfortunately there are no beds available in ICU stepdown unit. She was given a bolus of IV fluids will give 1 more liter bolus at this time. Patient is presently on 4 L of oxygen patient was on ceftezole and will will be started on vancomycin and continue with clindamycin. Patient is hyponatremic hyponatremia improved at this time. Patient that diabetes is uncontrolled presently blood sugars are bit better compared to yesterday. Patient can use to be febrile. 01/01/2020 Patient was found to be in atrial fibrillation with heart rates going up to around 150 patient was given a dose of Cardizem subsequently converted to sinus rhythm and sinus tachycardia, went into A. fib again. Patient is a 90 correlation with IV heparin is presently on Cardizem blood pressure is doing charisma rly well chest x-ray did not show any pulmonary edema. Patient can use to have highly elevated white blood count with significant drainage from the abscess in the back. Wound cultures are still pending showing staph aureus presumptive since today's are pending. Echocardiogram is pending. 01/02/2020 patient heart rate is in 100s today. Cutting down the IV fluids patient's beta zee was increased. Patient is on anticoagulation with Xarelto. No plans for incision and drainage patient had an episode of confusion may be related to toxic encephalopathy from medications or infection.spontaneous drainage from the back. Ordered Seroquel on as-needed basis for Agitation secondary to deliri um 01/03/2020 Patient is presently rate controlled but holding on anti-coagulation at this time Possible PICC line placement on Sunday. Patient the has extensive infection, cellulitis and abscesses because of thispictures disease recommending IV antibiotics. PICC line was ordered for Sunday. Patient is bit hypoglycemic at nighttime and cutting down the long-acting insulin from 80 units to 65 units will continue with the pre-meal sliding scale insulin. 01/04/2020 Patient. PICC line tomorrow patient probably will be discharged tomorrow if blood sugars are fairly doing well today Constitutional: Does have fever. Cardio vascular: denied any chest pain, palpitations Gastrointestinal denied any nausea vomiting Pulmonary: Denied any shortness of breath cough Neurologic denied any new focal deficits All inpatient medications were reviewed and appropriate changes in these medications as dictated in the interval history and assessment and plan. Objective - Vital Signs Vital signs: Vital Signs Temp 98.7 F 01/04/20 05:00 Pulse 95 01/04/20 05:00 Resp 16 01/04/20 05:00 BP 145/75 01/04/20 05:00 Pulse Ox 98 01/04/20 05:00 Intake & Output 01/03/20 01/04/20 01/04/20 18:59 06:59 18:59 Intake Total 2090 2130 Output Total 3200 2550 600 Balance -1110 -420 -600 Intake: IV 800 950 Clindamycin 900 mg In 50 Dextrose 5% in Water 50 ml @ 50 mls/hr IVPB Q8HR [facility] Rx#:[id number] Sodium Chloride 0.9% 1, 700 900 000 ml @ 75 mls/hr IV . [id number] [facility] Rx#:[id number] ceFAZolin 2 gm In Sodium 50 50 Chloride 0.9% 50 ml @ 100 mls/hr IVPB Q8HR [facility] Rx# :[id number] Intake, IV Titration 50 Amount ceFAZolin 2 gm In Sodium 50 Chloride 0.9% 50 ml @ 100 mls/hr IVPB Q8HR [facility] Rx# :[id number] Oral 1240 1180 Output: Urine 3200 2550 600 Other: Voiding Method Urinal Urinal # Voids 1 1 - Exam PHYSICAL EXAMINATION: GENERAL: The patient is alert and oriented x3, not in any acute distress. Obese HEENT: Pupils are round and equally reacting to light. EOMI. No scleral icterus. No conjunctival pallor. Normocephalic, atraumatic. No pharyngeal erythema. No thyromegaly. CARDIOVASCULAR: S1 and S2 present. No murmurs, rubs, or gallops. tachycardic irregularly irregular rhythm in atrial fibrillation PULMONARY: Chest is clear to auscultation, no wheezing or crackles. ABDOMEN: Soft, nontender, nondistended, normoactive bowel sounds. No palpable organomegaly. MUSCULOSKELETAL: No joint swelling or deformity. EXTREMITIES: No cyanosis, clubbing, or pedal edema. NEUROLOGICAL: Gross neurological examination did not reveal any focal deficits. SKIN: Patient has extensive cellulitis with induration on the back upper back just below the neck area predominantly in the right side extending beyond the midline with local is of temperature. And has areas of pus pocket which are actively draining appears to have infected sebaceous cyst. - Labs CBC & Chem 7: 01/04/20 04:56 01/04/20 04:56 Labs: Abnormal Lab Results - Last 24 Hours (Table) 01/03/20 01/03/20 01/03/20 Range/Units 12:34 17:35 19:46 RBC (4.30-5.90) m/uL Hgb (13.0-17.5) gm/dL Hct (39.0-53.0) % Carbon Dioxide (21.6-31.8) mmol/L Glucose (70-110) mg/dL POC Glucose (mg/dL) 165 H 189 H 252 H (75-99) mg/dL Calcium (8.7-10.3) mg/dL 01/04/20 01/04/20 Range/Units 04:56 04:56 RBC 4.23 L (4.30-5.90) m/uL Hgb 12.3 L (13.0-17.5) gm/dL Hct 38.0 L (39.0-53.0) % Carbon Dioxide 32.2 H (21.6-31.8) mmol/L Glucose 140 H (70-110) mg/dL POC Glucose (mg/dL) (75-99) mg/dL Calcium 8.1 L (8.7-10.3) mg/dL Microbiology - Last 24 Hours (Table) 12/29/19 23:22 Blood Culture - Preliminary Blood No Growth after 120 hours 12/31/19 12:08 Blood Culture - Preliminary Blood No Growth after 72 hours Assessment and Plan Plan: -Sepsis and cellulitis an abscess abscess or infectious sebaceous cyst of the right upper back. abscesses spontaneously draining , patient has MSSA in the cultures patient is presently on the ceftezolin and clindamycin..patient will require IV antibiotics PICC line was ordered -New onset atrial fibrillation resuscitated by by infection and sepsis echocardiogram showed normal ejection fraction.patient is presently on metoprolol. Xareltois on hold. -Toxic encephalopathy from sepsis -Acute hypoxic respiratory failure: Secondary to possibly sepsis , rule out not requiring any oxygen -Hyponatremia: Pseudohyponatremia along with hypovolemic hyponatremia, continue with IV fluids -Type 2 diabetes mellitus uncontrolled better controlled compared to yesterday will continue to monitor on present regimen -Hypertension: Patient is severely septic and hypotensive because of which will hold off on blood pressure medications -Sleep apnea uses CPAP machine at home. -DVT prophylaxis with Lovenox.
[2020-01-04 11:38] LABS: Glucose,Whole Blood 147 mg/dL (75-99)
--- NOTE | 2020-01-04 11:55 | P.PN ---
Subjective Progress Note Date: 01/04/20 CHIEF COMPLAINT: Cellulitis of the back HISTORY OF PRESENT ILLNESS: The patient is a 54-year-old male with history of cellulitis of the back. He reports moderate drainage. No new complaints. No increased pain. ROS: No reports of nausea and vomiting. No fevers or chills. No new chest pain. No productive sputum PHYSICAL EXAM: VITAL SIGNS: Reviewed CONSTITUTIONAL: Well developed and in no acute distress. EYES: Conjuctivae without sclera icterus. Extraocular movements grossly intact. HEAD, EARS, NOSE, THROAT: Moist buccal mucosa. Head is atraumatic, normocephalic. Hears conversational speech. No nasal drainage. NECK: Supple. RESPIRATORY: Non-labored respirations and equal bilateral excursions. CARDIOVASCULAR: Palpable 2+ radial pulses. ABDOMEN: No peritonitis MUSCULOSKELETAL: No gross deformity of the lower extremities noted. No clubbing. No cyanosis. SKIN: Good skin turgor. Well perfused. Upper back dressing, clean, dry and intact NEUROLOGIC: Cranial nerves II through XII grossly intact. No focal or lateralizing signs. PSYCH: Appropriate affect. Alert and oriented to person, place and time. CLINICAL LABS: WBC elevated over 12,000 now normal less than 10.0 ASSESSMENT: 1. Sepsis 2. Cellulitis of the back 3. Diabetes type II PLAN: 1. Continue IV antibiotics 2. PICC line placement per discussion with patient Objective - Vital Signs Vital signs: Vital Signs Temp 98.7 F 01/04/20 05:00 Pulse 95 01/04/20 05:00 Resp 16 01/04/20 05:00 BP 145/75 01/04/20 05:00 Pulse Ox 98 01/04/20 05:00 Intake & Output 01/03/20 01/04/20 01/04/20 18:59 06:59 18:59 Intake Total 2090 2130 Output Total 3200 2550 600 Balance -1110 420 -600 Intake: IV 800 950 Clindamycin 900 mg In 50 Dextrose 5% in Water 50 ml @ 50 mls/hr IVPB Q8HR [facility] Rx#:[id number] Sodium Chloride 0.9% 1, 700 900 000 ml @ 75 mls/hr IV . [id number] [facility] Rx#:[id number] ceFAZolin 2 gm In Sodium 50 50 Chloride 0.9% 50 ml @ 100 mls/hr IVPB Q8HR [facility] Rx# :[id number] Intake, IV Titration 50 Amount ceFAZolin 2 gm In Sodium 50 Chloride 0.9% 50 ml @ 100 mls/hr IVPB Q8HR [facility] Rx# :[id number] Oral 1240 1180 Output: Urine 3200 2550 600 Other: Voiding Method Urinal Urinal # Voids 1 1 - Labs CBC & Chem 7: 01/04/20 04:56 01/04/20 04:56 Labs: Abnormal Lab Results - Last 24 Hours (Table) 01/03/20 01/03/20 01/03/20 Range/Units 12:34 17:35 19:46 RBC (4.30-5.90) m/uL Hgb (13.0-17.5) gm/dL Hct (39.0-53.0) % Carbon Dioxide (21.6-31.8) mmol/L Glucose (70-110) mg/dL POC Glucose (mg/dL) 165 H 189 H 252 H (75-99) mg/dL Calcium (8.7-10.3) mg/dL 01/04/20 01/04/20 01/04/20 Range/Units 04:56 04:56 11:35 RBC 4.23 L (4.30-5.90) m/uL Hgb 12.3 L (13.0-17.5) gm/dL Hct 38.0 L (39.0-53.0) % Carbon Dioxide 32.2 H (21.6-31.8) mmol/L Glucose 140 H (70-110) mg/dL POC Glucose (mg/dL) 147 H (75-99) mg/dL Calcium 8.1 L (8.7-10.3) mg/dL Microbiology - Last 24 Hours (Table) 12/29/19 23:22 Blood Culture - Preliminary Blood No Growth after 120 hours 12/31/19 12:08 Blood Culture - Preliminary Blood No Growth after 72 hours Assessment and Plan (1) Morbid (severe) obesity due to excess calories Current Visit: Yes Status: Acute Code(s): E66.01 - MORBID (SEVERE) OBESITY DUE TO EXCESS CALORIES SNOMED Code(s): 874064540 (2) Cellulitis Current Visit: Yes Status: Acute Code(s): L03.90 - CELLULITIS, UNSPECIFIED SNOMED Code(s): 125348383 (3) Diabetes mellitus Current Visit: Yes Status: Acute Code(s): E11.9 - TYPE 2 DIABETES MELLITUS WITHOUT COMPLICATIONS SNOMED Code(s): 99679680 (4) Sepsis Current Visit: Yes Status: Acute Code(s): A41.9 - SEPSIS, UNSPECIFIED ORGANISM SNOMED Code(s): 06670674
[2020-01-04 17:22] LABS: Glucose,Whole Blood 200 mg/dL (75-99)
[2020-01-04] MEDS ORDERED: RIVAROXABAN 15 MG TAB PO SCH (17:30)
[2020-01-04 19:52] LABS: Glucose,Whole Blood 296 mg/dL (75-99)
[2020-01-04] MEDS: ATORVASTATIN 20 MG TAB PO SCH (22:27)
[2020-01-04] MEDS: INSULIN DETEMIR (LEVEMIR) 100 UNIT/ML SYR SQ SCH (22:28)
[2020-01-05 04:51] VITALS: BP 136/85; PULSE 87; RESP 16; TEMP 97.4
--- NOTE | 2020-01-05 05:07 | PN ---
PROGRESS NOTE DATE OF SERVICE: 01/04/2020 REASON FOR FOLLOWUP: Upper back MSSA abscess and cellulitis. INTERVAL HISTORY: The patient is currently afebrile. Patient is breathing comfortably. The patient denies having any chest pain. No shortness of breath or cough. No abdominal pain or diarrhea or pain to the upper back area. PHYSICAL EXAMINATION: Blood pressure 126/79 with a pulse of 96, temperature of 98.3. He is 97% on room air. General description is a middle-aged male up in the bed in no distress. RESPIRATORY SYSTEM: Unlabored breathing, clear to auscultation. HEART: S1, S2. Regular rate and rhythm. ABDOMEN: Soft, no tenderness. UPPER BACK AREA: The area of the cellulitis and abscess is currently dressed. Minimal drainage on the dressing. The area of swelling and redness had decreased. LABS: Hemoglobin is 12.3, white count 9.9, creatinine 0.7. Blood culture negative. Local culture with MSSA. DIAGNOSTIC IMPRESSION AND PLAN: Patient with MSSA upper back abscess status post spontaneous drainage and culture. The patient clinically responded to cefazolin to continue for another 2 weeks. Will have a PICC line placed tomorrow and monitor clinical course closely. MMODL / IJN: [id number] /
[2020-01-05 07:37] LABS: Glucose,Whole Blood 104 mg/dL (75-99)
[2020-01-05] MEDS: METOPROLOL TARTRATE 50 MG TAB PO SCH (09:14)
[2020-01-05] MEDS: INSULIN ASPART (NovoLOG) 100 UNIT/ML VIAL SQ SCH ×2 (09:14→12:44)
[2020-01-05] MEDS: GABAPENTIN 300 MG CAP PO SCH (09:14)
[2020-01-05] MEDS: MULTIVITAMINS, THERA 1 EACH TAB PO SCH (09:14)
[2020-01-05] MEDS: FAMOTIDINE 20 MG TAB PO SCH (09:15)
--- NOTE | 2020-01-05 11:14 | P.PN ---
Progress Note - Text Progress Note Date: 01/05/20 Patient has decreased drainage from his back abscess. There is improvement in several layers. Patient scheduled for a PICC line today. He'll be discharged home on IV antibiotics.
[2020-01-05] MEDS: SODIUM CHLORIDE 0.9% 1,000 ML IV SCH (11:16)
[2020-01-05 12:14] LABS: Glucose,Whole Blood 142 mg/dL (75-99)
--- NOTE | 2020-01-05 15:50 | P.DS ---
Providers Date of admission: 12/30/19 02:08 Expected date of discharge: 01/05/20 Attending physician: Natalie Daley Consults: 12/30/19 02:08 Consult Physician Urgent Consulting Provider: Francy Randle Consult Reason/Comments: cellulitis and myositis Do you want consulting provider notified?: Yes, Notify in am 12/30/19 13:04 Consult Physician Routine Consulting Provider: Philip Boyer Consult Reason/Comments: Possible abscess of the upper back Do you want consulting provider notified?: Yes 12/31/19 16:12 Consult Physician Stat Consulting Provider: Dat Hester Consult Reason/Comments: svt vs afib, sepsis, covid neg, but suspicious Do you want consulting provider notified?: Yes 12/31/19 16:19 Consult Physician Urgent Consulting Provider: Kevin Palmer Consult Reason/Comments: ICU management Do you want consulting provider notified?: Yes Primary care physician: Rossy He [facility] Course: Final diagnosis -Sepsis and cellulitis secondary to an abscess or infectious sebaceous cyst of the right upper back. abscesses spontaneously draining , patient has MSSA in the cultures -New onset atrial fibrillation secondary to infection and sepsis echocardiogram showed normal ejection fraction. -Toxic encephalopathy from sepsis -Acute hypoxic respiratory failure: Secondary to possibly sepsis -Hyponatremia: Pseudohyponatremia along with hypovolemic hyponatremia -Type 2 diabetes mellitus uncontrolled -Hypertension -Sleep apnea uses CPAP machine at home. -DVT prophylaxis Discharge disposition Patient is being discharged in a stable condition with guarded prognosis to home. Patient will follow-up with Dr. He in the outpatient setting upon discharge. Patient also instructed to follow-up with cardiology along with infectious disease in the outpatient setting. Patient is to continue with IV antibiotics per infectious disease recommendations. Adjustments to insulin have also been made upon discharge. Total time taken is greater than 35 minutes. History of present illness This is a 54-year-old male who was recently admitted with sepsis secondary to an abscess of the upper back and was being closely monitored. Patient was seen and evaluated by surgery along with infectious disease. Patient was maintained on IV antibiotics in the form of Ceftin is all along with vancomycin and clindamycin. Wound cultures finalized showing Staphylococcus aureus and patient will be maintained on IV Rocephin per infectious disease recommendations at the [facility] infusion center daily for the next 2 weeks. Patient did receive a midline. Patient will follow-up in the outpatient setting at the [facility]. Patient will be continued on Plavix and was initiated on Xarelto per cardiology and will continue at this time. Patient will be following up with cardiology in the outpatient setting. Currently no reports of chest pain, shortness of breath, or palpitations. Patient is afebrile. No reports of nausea or vomiting and patient is tolerating diet. Patient instructed to continue to monitor blood sugars before meals and at bedtime and keep a diary for primary care follow-up. Adjustments to insulin have been made and patient will continue on sliding scale 3 times daily with meals along with 65 units of long-acting insulin and oral antidiabetic medications. Patient instructed to follow-up with primary care provider this week. Patient anticipating discharge today. On exam vital signs are stable. Temp is 97.4F, pulse is 87, respirations are 16, blood pressure is 136/85, oxygen saturation is 95% on room air. Cardio S1, S2 are muffled. Respiratory system shows diminished breath sounds at the bases with no wheezing or rhonchi noted. Abdomen is soft, obese, and nontender. Nervous system shows no focal deficits. Please refer to medication reconciliation sheet for a list of medications. Patient Condition at Discharge: Stable Plan - Discharge Summary Discharge Rx Participant: No New Discharge Prescriptions: New Rivaroxaban [Xarelto] 15 mg PO DAILY #30 tab Metoprolol Tartrate [Lopressor] 50 mg PO TID 30 Days #90 tab INSULIN ASPART (NovoLOG) [NovoLOG (formulary)] 0 unit SQ ACHS vial Famotidine [Pepcid] 20 mg PO BID 30 Days #60 tab traMADol HCl [Ultram] 50 mg PO QID PRN #10 tab PRN Reason: Pain/Discomfort cefTRIAXone [Rocephin] 2,000 mg IVP Q24HR #14 vial Continue Multivitamins, Thera [Multivitamin (formulary)] 1 tab PO DAILY Enalapril [Vasotec] 10 mg PO BID Clopidogrel Bisulfate [Plavix] 75 mg PO DAILY #30 tab Nitroglycerin Sl Tabs [Nitrostat] 0.4 mg SUBLINGUAL Q5M PRN PRN Reason: Pain metFORMIN HCL 1,000 mg PO BID Gabapentin 600 mg PO TID Simvastatin [Zocor] 40 mg PO HS Exenatide Microspheres [Bydureon Pen] 2 mg SQ MO Changed Insulin Glargine [Lantus] 65 unit SQ HS #0 Discontinued INSULIN ASPART (NovoLOG) [NovoLOG] 45 units SQ AC-TID Discharge Medication List Enalapril [Vasotec] 10 mg PO BID 10/05/13 [History] Multivitamins, Thera [Multivitamin (formulary)] 1 tab PO DAILY 10/05/13 [History] Clopidogrel Bisulfate [Plavix] 75 mg PO DAILY #30 tab 05/25/14 [Rx] Nitroglycerin Sl Tabs [Nitrostat] 0.4 mg SUBLINGUAL Q5M PRN 02/01/15 [History] Gabapentin 600 mg PO TID 10/20/15 [History] metFORMIN HCL 1,000 mg PO BID 10/20/15 [History] Exenatide Microspheres [Bydureon Pen] 2 mg SQ MO 12/30/19 [History] Simvastatin [Zocor] 40 mg PO HS 12/30/19 [History] Rivaroxaban [Xarelto] 15 mg PO DAILY #30 tab 01/01/20 [Rx] Famotidine [Pepcid] 20 mg PO BID 30 Days #60 tab 01/05/20 [Rx] INSULIN ASPART (NovoLOG) [NovoLOG (formulary)] 0 unit SQ ACHS vial 01/05/20 [Rx] Insulin Glargine [Lantus] 65 unit SQ HS #0 01/05/20 [Rx] Metoprolol Tartrate [Lopressor] 50 mg PO TID 30 Days #90 tab 01/05/20 [Rx] cefTRIAXone [Rocephin] 2,000 mg IVP Q24HR #14 vial 01/05/20 [Rx] traMADol HCl [Ultram] 50 mg PO QID PRN #10 tab 01/05/20 [Rx] Follow up Appointment(s)/Referral(s): [facility],Infusion [NON-STAFF] - 1 Week Rossy He MD [Primary Care Provider] - 01/12/20 11:00 am Dat Hester MD [STAFF PHYSICIAN] - 01/13/20 2:15 pm Francy Randle MD [STAFF PHYSICIAN] - 1 Week (office will call patient to schedule appt) Patient Instructions/Handouts: Metoprolol (By mouth), Famotidine (By mouth), Tramadol (By mouth), Ceftriaxone (By injection), Rivaroxaban (By mouth), Cellulitis (DC) Activity/Diet/Wound Care/Special Instructions: pt to go to [facility] tomorrow at 2pm for his infusion - show up a little early for paperwork. Activity Limited until follow-up Continue current diet Continue with IV antibiotics as instructed by infectious disease Follow-up with infectious disease in the outpatient setting Continue to monitor blood sugars before meals at bedtime and keep a diary for primary care follow-up Continue with sliding scale 3 times daily with meals Discharge Disposition: HOME SELF-CARE
--- NOTE | 2020-01-05 18:31 | PN ---
PROGRESS NOTE DATE OF SERVICE: 01/05/2020. REASON FOR FOLLOWUP: MSSA upper back infected carbuncle/abscess. INTERVAL HISTORY: Patient was seen on rounds early this afternoon. The patient has been afebrile. Breathing comfortably. Overall pain and discomfort to the upper back area has improved. No chest pain. No cough. No abdominal pain. No diarrhea. PHYSICAL EXAMINATION: Blood pressure 136/85 with a pulse of 87, temperature 97.4. He is 95% on room air. General description is a middle-aged male up in the chair in no distress. Respiratory system: Unlabored breathing, clear to auscultation anteriorly. Heart S1, S2. Regular rate and rhythm. Abdomen soft, no tenderness. LABS: Wound culture with MSSA. DIAGNOSTIC IMPRESSION AND PLAN: Patient with upper back infected abdominal carbuncle status post spontaneous drainage. Culture with MSSA. The patient was advised Cefazolin 2 g q.8 hours. However he wants to go to the office for the infusion. Antibiotic has been switched to Rocephin 2 grams daily for 2 weeks and close outpatient followup. MMODL / IJN: [id number] /
== END 2020-01-05 15:10 | disposition home or self-care (01) | DRG 871 ==
LOC: EC 23:04 → 6NMEDSUR 12-30 02:08 → 2SICU 12-31 20:14 → 6NMEDSUR 01-02 23:17
PROVIDERS: ADMIT Hospitalist; ATTEND Hospitalist
PROC: 5A09357 Assistance with Respiratory Ventilation, Less than 24 Consecutive Hours, Continuous Positive Airway Pressure (ICD-10-PCS; 2020-01-01)
PROC: 5A09357 Assistance with Respiratory Ventilation, Less than 24 Consecutive Hours, Continuous Positive Airway Pressure (ICD-10-PCS; 2020-01-02)
PROC: 05HF33Z Insertion of Infusion Device into Left Cephalic Vein, Percutaneous Approach (ICD-10-PCS; principal; 2020-01-05 09:00)
DX: A41.01 Sepsis due to Methicillin susceptible Staphylococcus aureus (principal); G92 Toxic encephalopathy; J96.21 Acute and chronic respiratory failure with hypoxia; Z68.41 Body mass index [BMI] 40.0-44.9, adult; E87.1 Hypo-osmolality and hyponatremia; I69.351 Hemiplegia and hemiparesis following cerebral infarction affecting right dominant side; L02.212 Cutaneous abscess of back [any part, except buttock and flank]; L03.312 Cellulitis of back [any part except buttock and flank]; L03.221 Cellulitis of neck; E11.649 Type 2 diabetes mellitus with hypoglycemia without coma; E11.65 Type 2 diabetes mellitus with hyperglycemia; E66.01 Morbid (severe) obesity due to excess calories; E78.5 Hyperlipidemia, unspecified; E86.1 Hypovolemia; F32.9 Major depressive disorder, single episode, unspecified; G47.33 Obstructive sleep apnea (adult) (pediatric); Z99.89 Dependence on other enabling machines and devices; I10 Essential (primary) hypertension; I48.0 Paroxysmal atrial fibrillation; L02.93 Carbuncle, unspecified; Z20.828 Contact with and (suspected) exposure to other viral communicable diseases; R65.20 Severe sepsis without septic shock; W57.XXXA Bitten or stung by nonvenomous insect and other nonvenomous arthropods, initial encounter; M60.9 Myositis, unspecified; L72.3 Sebaceous cyst; Z79.01 Long term (current) use of anticoagulants; Z79.02 Long term (current) use of antithrombotics/antiplatelets; Z79.4 Long term (current) use of insulin; Z79.899 Other long term (current) drug therapy; Z83.3 Family history of diabetes mellitus; Z80.9 Family history of malignant neoplasm, unspecified; G89.29 Other chronic pain; Z88.6 Allergy status to analgesic agent; Z88.5 Allergy status to narcotic agent; R79.1 Abnormal coagulation profile; F40.240 Claustrophobia; Z87.19 Personal history of other diseases of the digestive system
CPT/HCPCS: 36410; 36415; 71045; 71260; 76937; 80048; 80053; 81001; 82550; 82728; 82805; 83036; 83605; 83615; 83735; 84132; 84145; 84443; 85025; 85027; 85379; 85610; 85730; 86140; 87040; 87070; 87075; 87077; 87186; 87205; 87635; 93005; 93306; 96361; 96365; 96366; 96367; 99291

== ENCOUNTER → 2020-06-02 | Outpatient (CLI) | payer MEDICARE, OTHER ==
[2020-06-03 00:40] LABS: African American GFR (CKD) 87.1 (60.0-200.0); Albumin 4.5 g/dL (3.80-4.90); Albumin/Globulin Ratio 1.8 (1.60-3.17); Anion Gap 13.1 mmol/L (4.00-12.00); BUN/Creat Ratio 15.45 Ratio (12.00-20.00); Calcium 9.4 mg/dL (8.7-10.3); Carbon Dioxide 20.9 mmol/L (21.6-31.8); Globulin 2.5 g/dL (1.6-3.3); Non-African American GFR(CKD) 75.2 (60.0-200.0); Potassium 4.5 mmol/L (3.5-5.5); Total Bilirubin 0.4 mg/dL (0.3-1.2)
[2020-06-03 01:12] LABS: Urine Creatinine 25.8 mg/dL
== END | disposition home or self-care (01) ==
LOC: LABWHC1 11:06
PROVIDERS: ATTEND Internal Medicine Endocrinology, Diabetes & Metabolism
DX: E11.65 Type 2 diabetes mellitus with hyperglycemia (principal)
CPT/HCPCS: 36415; 80053; 82043; 82570; 83036; 84443

== ENCOUNTER 2022-07-27 05:02 | Emergency (ER) | payer MEDICARE, OTHER ==
[2022-07-27 05:18] VITALS: RESP 18; TEMP 98.1
--- NOTE | 2022-07-27 05:25 | ED ---
General Adult HPI - General Chief complaint: Shortness of Breath Stated complaint: SOB Time Seen by Provider: 07/27/22 05:15 Source: patient, EMS, RN notes reviewed, old records reviewed Mode of arrival: EMS Limitations: no limitations - History of Present Illness Initial comments: Patient is a 56-year-old male who presents emergency Department complaining of shortness of breath. Has a history of prior strokes on the blood thinner now, diabetes, hypertension, sleep apnea on CPAP at night who presents emergency Department waking up short of breath. States he does have intermittent issues with his CPAP. States he awoke and cannot catch his breath. CPAP machine had turned off which does happen intermittently. They called EMS. He was given one breathing treatment. He was a prior smoker. Is feeling improved at this time. Has a chronic cough. Nonproductive. Denies fevers. Denies any chest pain or shortness of breath. Denies abdominal pain, nausea, vomiting. Is not on oxygen at baseline. Denies any lower extremity swelling or edema. He is compliant with medications. Presents or further evaluation at this time. Shortness of breath has resolved. - Related Data Home Medications Medication Instructions Recorded Confirmed Enalapril [Vasotec] 10 mg PO BID 10/05/13 12/30/19 Multivitamins, Thera [Multivitamin 1 tab PO DAILY 10/05/13 12/30/19 (formulary)] Nitroglycerin Sl Tabs [Nitrostat] 0.4 mg SUBLINGUAL Q5M PRN 02/01/15 12/30/19 Gabapentin 600 mg PO TID 10/20/15 12/30/19 metFORMIN HCL [Glucophage] 1,000 mg PO BID 10/20/15 12/30/19 Exenatide Microspheres [Bydureon 2 mg SQ MO 12/30/19 12/30/19 Pen] Simvastatin [Zocor] 40 mg PO HS 12/30/19 12/30/19 Previous Rx's Medication Instructions Recorded Clopidogrel Bisulfate [Plavix] 75 mg PO DAILY #30 tab 05/25/14 Rivaroxaban [Xarelto] 15 mg PO DAILY #30 tab 01/01/20 Famotidine [Pepcid] 20 mg PO BID 30 Days #60 tab 01/05/20 INSULIN ASPART (NovoLOG) [NovoLOG 0 unit SQ ACHS vial 11/16/20 (formulary)] Insulin Glargine [Lantus Vial] 65 unit SQ HS #0 01/05/20 Metoprolol Tartrate [Lopressor] 50 mg PO TID 30 Days #90 tab 01/05/20 cefTRIAXone [Rocephin] 2,000 mg IVP Q24HR #14 vial 01/05/20 traMADol HCl [Ultram] 50 mg PO QID PRN #10 tab 01/05/20 Allergies Allergy/AdvReac Type Severity Reaction Status Date / Time codeine Allergy Severe Anaphylaxis Verified 12/30/19 08:56 meloxicam Allergy Swelling Verified 12/30/19 08:56 Review of Systems ROS Statement: Those systems with pertinent positive or pertinent negative responses have been documented in the HPI. Review of Systems: CONST: Denies fever EYES: Denies blurry vision ENT: Denies nasal congestion C/V: Denies Chest pain RESP: Denies shortness of breath GI: Denies abdominal pain : Denies dysuria SKIN: Denies rash. MSK: Denies joint pain. NEURO: Denies headache ROS Other: All systems not noted in ROS Statement are negative. 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 Past Anesthesia/Blood Transfusion Reactions: No Reported Reaction Additional Past Anesthesia/Blood Transfusion Reaction / Comment(s): CLAUTERPHOBIA Past Psychological History: Depression Past Alcohol Use History: Rare Past Drug Use History: None Reported - Past Family History Mother Family Medical History: Diabetes Mellitus Father Family Medical History: Cancer General Exam - General Exam Comments Initial Comments: General: Appears in no acute distress. HEAD: Normal with no signs of head trauma. EYES: EOMI ENT: Hearing grossly intact, normal oropharynx. RESPIRATORY: Clear breath sounds bilaterally. No wheezes, rales, or rhonchi. No hypoxia. No increased work of breathing C/V: Regular rate and rhythm. S1 and S2 auscultated, no edema, peripheral pulses 2+ and intact throughout ABD: Abd is soft, nontender, nondistended EXT: Normal range of motion, no obvious deformity SKIN: No rashes or lesions observed on exposed skin. NEURO: Alert and oriented 4. Limitations: no limitations Course Vital Signs 07/27/22 05:06 Temperature 98.1 F Pulse Rate 96 Respiratory 18 Rate Blood Pressure 148/106 O2 Sat by Pulse 97 Oximetry Medical Decision Making - Medical Decision Making Was pt. sent in by a medical professional or institution (, PA, FINE GRADE BULLDOZER OPERATOR, urgent care, hospital, or senior living...) When possible be specific @ -No Did you speak to anyone other than the patient for history (EMS, parent, family, police, friend...)? What history was obtained from this source @ -No Did you review nursing and triage notes (agree or disagree)? Why? @ -I reviewed and agree with nursing and triage notes Were old charts reviewed (outside hosp., previous admission, EMS record, old EKG, old radiological studies, urgent care reports/EKG's, senior living records)? Report findings @ -Charts reviewed including from December 2019 EKG Differential Diagnosis (chest pain, altered mental status, abdominal pain women, abdominal pain men, vaginal bleeding, weakness, fever, dyspnea, syncope, headache, dizziness, GI bleed, back pain, seizure, CVA, palpatations, mental health, musculoskeletal)? @ -Viral syndrome, asthma exacerbation, COPD exacerbation, CPAP malfunctioning, sleep apnea. This list is not all inclusive. EKG interpreted by me (3pts min.). @ -As above X-rays interpreted by me (1pt min.). @ -Chest x-ray reveals no obvious acute cardiopulmonary process. CT interpreted by me (1pt min.). @ -None done U/S interpreted by me (1pt. min.). @ -None done What testing was considered but not performed or refused? (CT, X-rays, U/S, harriett bs)? Why? @ -None What meds were considered but not given or refused? Why? @ -None Did you discuss the management of the patient with other professionals (professionals i.e. , KORI, FINE GRADE BULLDOZER OPERATOR, lab, RT, psych nurse, high school social studies teacher, bellmaker, teacher, student officer, wrapper caser)? Give summary @ -No Was smoking cessation discussed for >3mins.? @ -No Was critical care preformed (if so, how long)? @ -No Were there social determinants of health that impacted care today? How? (Homelessness, low income, unemployed, alcoholism, drug addiction, transportation, low edu. Level, literacy, decrease access to med. care, half-way, rehab)? @ -No Was there de-escalation of care discussed even if they declined (Discuss DNR or withdrawal of care, Hospice)? DNR status @ -No What co-morbidities impacted this encounter? (DM, HTN, Smoking, COPD, CAD, Cancer, CVA, ARF, Chemo, Hep., AIDS, mental health diagnosis, sleep apnea, morbid obesity)? @ -None Was patient admitted / discharged? Hospital course, mention meds given and route, prescriptions, significant lab abnormalities, going to OR and other pertinent info. @ -Based on the patient's presentation and physical exam, presents with an episode of dyspnea at home that is since resolved. His CPAP machine turned off all he was using it. This does occur occasionally per patient. Received one breathing treatment on the way to the hospital. Currently is asymptomatic. Vital signs within acceptable limits. We will obtain screening EKG, chest x-ray as well as viral swabs and basic labs. Patient was in agreement this plan. EKG showed no signs of acute ischemia. The chest x-ray reveals no evidence of acute cardiopulmonary process. Patient's viral swabs are negative. On reevaluation, he is resting comfortably in no acute respiratory distress. We discussed his workup and findings. We both agree that his acute dyspnea was likely secondary to his CPAP shutting off in the middle the night. He states this has been a chronic issue for years. He has been attempting to obtain a new one but insurance will not cover it. I recommended to continue attempts, but otherwise I believe it is safe for him to be discharged home. He was in agreement this plan strict return precautions discussed. I instructed the patient to follow up with their PCP in the next 1-3 days. I explained that the patient should return to the emergency department if they experience any worsening symptoms. Strict return precautions were discussed with the patient. The patient expressed understanding of these instructions. I answered all questions that the patient had. The patient was discharged home in good condition with their prescriptions and follow up information. Undiagnosed new problem with uncertain prognosis? @ -No Drug Therapy requiring intensive monitoring for toxicity (Heparin, Nitro, Insulin, Cardizem)? @ -No Were any procedures done? @ -No Diagnosis/symptom? @ -CPAP malfunction, obstructive sleep apnea Acute, or Chronic, or Acute on Chronic? @ -Acute on chronic Uncomplicated (without systemic symptoms) or Complicated (systemic symptoms)? @ -Complicated Side effects of treatment? @ -none Exacerbation, Progression, or Severe Exacerbation] @ -no Poses a threat to life or bodily function? @ -no - Lab Data Result diagrams: 07/27/22 06:00 07/27/22 06:00 Lab Results 07/27/22 07/27/22 Range/Units 06:00 06:00 WBC 8.2 (3.8-10.6) k/uL RBC 4.89 (4.30-5.90) m/uL Hgb 14.4 (13.0-17.5) gm/dL Hct 42.9 (39.0-53.0) % MCV 87.7 (80.0-100.0) fL MCH 29.5 (25.0-35.0) pg MCHC 33.6 (31.0-37.0) g/dL RDW 13.3 (11.5-15.5) % Plt Count 230 (150-450) k/uL MPV 10.4 Neutrophils % 67 % Lymphocytes % 23 % Monocytes % 6 % Eosinophils % 3 % Basophils % 1 % Neutrophils # 5.5 (1.3-7.7) k/uL Lymphocytes # 1.8 (1.0-4.8) k/uL Monocytes # 0.5 (0-1.0) k/uL Eosinophils # 0.2 (0-0.7) k/uL Basophils # 0.1 (0-0.2) k/uL Sodium 136 L (137-145) mmol/L Potassium 4.4 (3.5-5.1) mmol/L Chloride 101 (98-107) mmol/L Carbon Dioxide 23 (22-30) mmol/L Anion Gap 12 mmol/L BUN 13 (9-20) mg/dL Creatinine 0.60 L (0.66-1.25) mg/dL Est GFR (CKD-EPI)AfAm >90 (>60 ml/min/1.73 sqM) Est GFR (CKD-EPI)NonAf >90 (>60 ml/min/1.73 sqM) Glucose 229 H (74-99) mg/dL Calcium 9.0 (8.4-10.2) mg/dL - EKG Data -: EKG Interpreted by Me EKG Comments: 12-lead Electrocardiogram Interpretation Note EKG was reviewed and interpreted by myself. 12-lead ECG performed at 0513 is interpreted by me as revealing normal sinus rhythm at a rate of 91 beats per minute. Purdys is normal. CT interval is 148 ms, QRS duration is 105 ms, QTc is 403 ms. Occasional PVC present.. There were no ST or T wave abnormalities to suggest myocardial ischemia or injury. R wave progression across the precordium was satisfactory. By my interpretation this EKG is non-diagnostic for acute ischemia. Compared with EKG from December 2019 with no significant change. Disposition Clinical Impression: Malfunction of continuous positive airway pressure (CPAP) or bilevel positive airway pressure (BPAP) machine, Sleep apnea Disposition: HOME SELF-CARE Condition: Good Instructions (If sedation given, give patient instructions): Shortness of Breath (ED) Is patient prescribed a controlled substance at d/c from ED?: No Referrals: Rossy He MD [Primary Care Provider] - 1-2 days Time of Disposition: 07:06
[2022-07-27 06:25] LABS: Basophils # (A) 0.1 k/uL (0-0.2); Basophils % (A) 1 %; Eosinophils # (A) 0.2 k/uL (0-0.7); Eosinophils % (A) 3 %; HCT 42.9 % (39.0-53.0); HGB 14.4 gm/dL (13.0-17.5); Lymphocytes # (A) 1.8 k/uL (1.0-4.8); Lymphocytes % (A) 23 %; MCH 29.5 pg (25.0-35.0); MCHC 33.6 g/dL (31.0-37.0); MCV 87.7 fL (80.0-100.0); Mean Platelet Volume 10.4; Monocytes # (A) 0.5 k/uL (0-1.0); Monocytes % (A) 6 %; Neutrophils # (A) 5.5 k/uL (1.3-7.7); Neutrophils % (A) 67 %; Platelet Count 230 k/uL (150-450); RBC 4.89 m/uL (4.30-5.90); RDW 13.3 % (11.5-15.5); WBC 8.2 k/uL (3.8-10.6)
[2022-07-27 06:46] LABS: African American GFR (CKD) >90 (>60 ml/min/1.73 sqM); Anion Gap 12 mmol/L; Blood Urea Nitrogen 13 mg/dL (9-20); Carbon Dioxide 23 mmol/L (22-30); Chloride 101 mmol/L (98-107); Glucose 229 mg/dL (74-99); Non-African American GFR(CKD) >90 (>60 ml/min/1.73 sqM); Potassium 4.4 mmol/L (3.5-5.1); Sodium 136 mmol/L (137-145)
--- NOTE | 2022-07-27 07:04 | XR ---
EXAMINATION TYPE: XR chest 2V DATE OF EXAM: 07/27/2022 COMPARISON: 12/31/2019 and 11/03/2020 HISTORY: 56-year-old male with cough and shortness of breath TECHNIQUE: AP and lateral views FINDINGS: Heart upper limits of normal in size, likely accentuated by AP technique. Slight eventration anterior right hemidiaphragm redemonstrated. No consolidation or pleural effusion. IMPRESSION: No acute cardiopulmonary process.
[2022-07-27 07:11] VITALS: BP 154/86; PULSE 91
== END 2022-07-27 07:36 | disposition home or self-care (01) ==
LOC: EC 05:02
DX: G47.33 Obstructive sleep apnea (adult) (pediatric) (principal); Z99.89 Dependence on other enabling machines and devices; E11.9 Type 2 diabetes mellitus without complications; E78.5 Hyperlipidemia, unspecified; I10 Essential (primary) hypertension; Z79.01 Long term (current) use of anticoagulants; Z79.84 Long term (current) use of oral hypoglycemic drugs; Z79.899 Other long term (current) drug therapy; Z87.891 Personal history of nicotine dependence; Z88.8 Allergy status to other drugs, medicaments and biological substances; Z88.5 Allergy status to narcotic agent; Z20.822 Contact with and (suspected) exposure to COVID-19
CPT/HCPCS: 36415; 71046; 80048; 85025; 87636; 93005; 99285

== ENCOUNTER → 2023-11-16 | Outpatient (CLI) | payer MEDICARE, OTHER ==
--- NOTE | 2023-11-16 10:00 | XR ---
EXAMINATION TYPE: Femur X-Ray Left DATE OF EXAM: 11/16/2023 COMPARISON: None HISTORY: Pain TECHNIQUE: 2 view left femur FINDINGS: Femoral head articulates with the acetabulum. Knee joint space appears unremarkable. No acu te fractures or dislocations evident. Follow up exams can be performed 7-10 days from acute trauma for continued pain. IMPRESSION: 1. No acute osseous abnormality of the femur [facility] Nubia Sal, , 11/16/2023 9:31 AM
--- NOTE | 2023-11-16 11:51 | XR ---
EXAMINATION TYPE: XR Hip Complete LT DATE OF EXAM: 11/16/2023 COMPARISON: None HISTORY: Pain in left hip TECHNIQUE: 2 view left hip FINDINGS: Femoral head articulates with the acetabulum. Joint space is preserved. No acute fractures or dislocations evident. Follow-up be performed as indicated IMPRESSION: 1. No acute osseous abnormalities left hip [facility] Band[facility] Sal, , 11/16/2023 11:48 AM
== END | disposition home or self-care (01) ==
LOC: RADXRMAIN 09:01
PROVIDERS: ATTEND Family Medicine
DX: M25.552 Pain in left hip (principal)
CPT/HCPCS: 73502